=== PATIENT | female | born 1945 | race Caucasian/White ===

== ENCOUNTER 2020-09-23 12:35 | Emergency (ER) | payer MEDICARE, OTHER ==
[2020-09-23] MEDS ORDERED: NORCO 5/325 MG PO ONE (13:00)
[2020-09-23] MEDS ORDERED: NORCO 5/325 MG ONE (13:07)
--- NOTE | 2020-09-23 13:21 | ERPHSYRPT ---
- History of Present Illness Time Seen by Provider: 09/23/20 13:01 Source: patient Exam Limitations: no limitations Patient Subjective Stated Complaint: Rash Triage Nursing Assessment: Patient ambulated back to ED and transferred self to bed. Patient A+O X3. Patient's skin pink, warm and dry. Patient states 4 days ago she started having pain underneath right breast/chest area that was deep pressure then a rash appeared to the mid back area today. Patient has scattered red rash to mid back with blistering noted. Patient complains of constant aching pain 5/10. Patient has hx of COPD and uses PRN O2 but currently denies wanting to put o2 on. Physician History: 75 years old female presented in the ER with chief complaint of right-sided chest pain for the last 4 days, gradual onset underneath right breast and grad ually wrapping around to involve the right mid back. Sharp burning pain, aggravated with touching and putting clothes on, noticed some blisters couple of days ago in the back. No fever or chills reported. No difficulty breathing. No pain on the left side. Timing/Duration: day(s) (4), gradual onset, worse Quality: burning, itchy, painful Severity: moderate Possible Causes: no cause identified Associated Symptoms: blisters, change in skin texture, rash Allergies/Adverse Reactions: nickel Allergy (Verified 09/23/20 12:39) Penicillins Allergy (Verified 09/23/20 12:39) sulfamethoxazole [From Bactrim] Allergy (Verified 09/23/20 12:39) trimethoprim [From Bactrim] Allergy (Verified 09/23/20 12:39) Home Medications: Albuterol/Ipratropium 3ml Neb* [DUONEB 0.5-3 MG/3 ml Neb] 1 vial IH BID 09/23/20 [History] Aspirin 81 gm Chew [Baby Aspirin 81 mg Chew] 1 tab PO DAILY 09/23/20 [History] Atorvastatin Calcium [Lipitor 40Mg] 1 tab PO DAILY 09/23/20 [History] Escitalopram Oxalate 10 mg [Lexapro 10 MG] 1 tab PO DAILY 09/23/20 [History] Fluticasone/Umeclidin/Vilanter [Trelegy Ellipta 100-62.5-25] 1 puff IH DAILY 09/23/20 [History] Montelukast Sodium 10 mg [Singulair 10 MG] 1 tab PO DAILY 09/23/20 [History] Multivitamin 1 tab PO DAILY 09/23/20 [History] Hx Influenza Vaccination/Date Given: Yes Hx Pneumococcal Vaccination/Date Given: No Immunizations Up to Date: Yes Travel Risk - International Travel Have you traveled outside of the country in past 3 weeks: No - Coronavirus Screening Are you exhibiting any of the following symptoms?: No Close contact with a COVID-19 positive Pt in past 14-21 Days: No - Vaccine Status Have you recieved a Covid-19 vaccination: Yes Phone Representative: Moderna - Vaccination Dates Date of 2cond Vaccination (if applicable): 08/03/2020 - Review of Systems Constitutional: No Symptoms Eyes: No Symptoms Respiratory: No Symptoms Cardiac: No Symptoms Abdominal/Gastrointestinal: No Symptoms Genitourinary Symptoms: No Symptoms Musculoskeletal: No Symptoms Skin: Rash, Skin Lesions Neurological: No Symptoms Psychological: No Symptoms Endocrine: No Symptoms Hematologic/Lymphatic: No Symptoms - Past Medical History Pertinent Past Medical History: Yes Neurological History: No Pertinent History ENT History: No Pertinent History Cardiac History: High Cholesterol Respiratory History: COPD Endocrine Medical History: No Pertinent History GI Medical History: No Pertinent History History: No Pertinent History Psycho-Social History: Depression Female Reproductive Disorders: No Pertinent History - Past Surgical History Past Surgical History: Yes Neuro Surgical History: No Pertinent History Cardiac: No Pertinent History Respiratory: No Pertinent History Gastrointestinal: No Pertinent History Genitourinary: No Pertinent History Musculoskeletal: No Pertinent History Female Surgical History: No Pertinent History Other Surgical History: stent in right carotid - Social History Smoking Status: Former smoker Exposure to second hand smoke: Yes Drug Use: none Patient Lives Alone: Yes - Female History Hx Now: No - Nursing Vital Signs Nursing Vital Signs: Initial Vital Signs Temperature 98.0 F 09/23/20 12:40 Pulse Rate 91 H 09/23/20 12:40 Respiratory Rate 18 09/23/20 12:40 Blood Pressure 166/74 09/23/20 12:40 O2 Sat by Pulse Oximetry 95 09/23/20 12:40 Pain Scale Pain Intensity 4 - Physical Exam General Appearance: no apparent distress, alert Eye Exam: eyes nml inspection Ears, Nose, Throat Exam: normal ENT inspection Neck Exam: normal inspection, supple, full range of motion Respiratory Exam: normal breath sounds, chest tenderness, lungs clear Cardiovascular Exam: regular rate/rhythm, normal heart sounds Gastrointestinal/Abdomen Exam: soft, normal bowel sounds Back Exam: rash Extremity Exam: normal inspection Neurologic Exam: alert, oriented x 3 Skin Exam: normal color, rash (Small accumulated clusters of blisters on the right mid back not crossing midline. Few blisters and crusting underneath right breast. Tender to touch.) Lymphatic Exam: inguinal node tender (L) SpO2: 95 O2 Delivery: Room Air Ordered Tests: Medication Summary Discontinued Medications Generic Name Dose Route Start Last Admin Trade Name Freq PRN Reason Stop Dose Admin Hydrocodone Bitart/Acetaminophen 1 tab 09/23/20 13:00 09/23/20 13:12 [place] 5/325 Mg PO 09/23/20 13:01 1 tab STAT ONE Administration Hydrocodone Bitart/Acetaminophen Confirm 09/23/20 13:07 [place] 5/325 Mg Administered 09/23/20 13:08 Dose 1 tab .ROUTE .STK-MED ONE - Progress Progress: unchanged Progress Note: 09/23/20 21:51 Patient has shingles, still having blisters, started on Valtrex and pain medications. Recommended outpatient follow-up. Does not seem cardiac or pulmonary in etiology. Do not think needs any work-up and is stable for discharge. Discussed signs symptoms of worsening needing return to ER which he seems understanding. Counseled pt/family regarding: diagnosis, need for follow-up - Departure Departure Disposition: Home Clinical Impression: Shingles rash Qualifiers: Herpes zoster complications: unspecified herpes zoster complication Qualified Code(s): B02.8 - Zoster with other complications Condition: Stable Critical Care Time: No Referrals: Provider,Unknown [Primary Care Provider] - ROSELYN DOYLE MD [ACTIVE STAFF] - (2 days for re evaluation) Instructions: Shingles (DC) Additional Instructions: Pain medications only as needed. Continue with antiviral medications. Follow- up with primary care for reevaluation in 2 days. Return to ER for worsening pain/rash or if develop fever chills etc. Prescriptions: Hydrocodone/APAP 5/325 [[place] 5/325 mg] 1 each PO Q6H PRN PRN #7 tablet MDD 3 PRN Reason: Pain Valacyclovir HCl [Valtrex] 1,000 mg PO TID 7 Days #21 tablet
[2020-09-23 13:25] VITALS: BP 126/70; PULSE 86
[2020-09-23 21:52] VITALS: O2SAT 95
== END 2020-09-23 13:26 | disposition home or self-care (01) ==
LOC: ED 12:35
DX: B02.8 Zoster with other complications (principal)
CPT/HCPCS: 99283; A9270-GY

== ENCOUNTER 2020-12-31 10:49 | Emergency (ER) | payer MEDICARE, OTHER ==
[2020-12-31 11:22] LABS: Absolute Neutrophil Ct (ANC) 9.83 (1.4-6.9); BASOPHIL % 0.2 % (0.0-0.4); Basophil (Absolute #) 0.03 (0-0.4); Eosinophil % 2.8 % (0.00-5.0); Eosinophil (Absolute #) 0.36 (0-0.5); Hematocrit 45.3 % (35-47); Hemoglobin 14.7 gm/dl (12.0-16.0); Lymphocyte (Absolute #) 1.72 (1.0-4.6); Lymphocytes % 13.2 % (24.0-44.0); Mean Cell Volume 96.6 fl (78-100); Mean Corpuscular Hemoglobin 31.3 pg (26-32); Mean Corpuscular Hgb Concent. 32.5 g/dl (32-36); Mean Platelet Volume 10.9 fl (7.5-11.0); Monocyte (Absolute #) 1.13 (0.0-1.3); Monocytes % 8.6 % (0.0-12.0); Neutrophil % 75.2 % (36.0-66.0); Platelet Count 263 K/mm3 (150-450); Red Blood Count 4.69 M/mm3 (4.1-5.4); Red Cell Distribution Width 13.7 % (11.5-14.0); White Blood Count 13.1 K/mm3 (4.0-10.5)
[2020-12-31 11:32] LABS: Appearance CLOUDY (CLEAR); Bacteria MODERATE /HPF (NEGATIVE); Bilirubin NEGATIVE (NEGATIVE); Blood MODERATE Ery/ul (0-5); Glucose NEGATIVE (NEGATIVE); Ketones NEGATIVE (NEGATIVE); Leukocyte Esterase LARGE (NEGATIVE); Mucus SLIGHT /HPF (NEGATIVE); Nitrite POSITIVE (NEGATIVE); Protein,Urine Dip 100 (Negative); Specific Gravity 1.014 (1.005-1.025); Urobilinogen NEGATIVE mg/dL (0-1); WBC >100 /HPF (0-5)
[2020-12-31 11:33] LABS: ALBUMIN 4.5 g/dL (3.5-5.0); ALKALINE PHOSPHATASE 108 U/L (38-126); ANION GAP 16.2 MEQ/L (5-15); BLOOD UREA NITROGEN 13 mg/dL (7-17); CHLORIDE 99 mmol/L (98-107); Calcium 9.7 mg/dL (8.4-10.2); Carbon Dioxide 22 mmol/L (22-30); Creatinine 1 0.66 mg/dL (0.52-1.04); EST GLOMERULAR FILTRATION RATE > 60.0 ML/MIN; Glucose 134 mg/dL (74-106); LIPASE 61 U/L (23-300); Potassium 3.9 mmol/L (3.5-5.1); SGOT/AST 30 U/L (14-36); SGPT/ALT 22 U/L (0-35); SODIUM 134 mmol/L (137-145); Total Protein 7.6 g/dL (6.3-8.2)
[2020-12-31 11:34] LABS: Epithelial Cells RARE /HPF (FEW)
[2020-12-31] MEDS ORDERED: Sodium Chloride 0.9% 500 ML 500 ML IV ONE ×2 (12:01→12:31)
--- NOTE | 2020-12-31 12:39 | ERPHSYRPT ---
- History of Present Illness Time Seen by Provider: 12/31/20 10:59 Historian: patient Exam Limitations: no limitations Patient Subjective Stated Complaint: "UTI" frequency, urgency, burning reported x 2 days Triage Nursing Assessment: pt to ED c/o urinary frequency, urgency, and burning with urination for 2 days. reports decreased appetitte and one episode emesis r/t pain. reports 5/10 burning pain now but up to 8-9/10 at worst. Physician History: 75 years old female with history of peripheral vascular disease, hypertension, hyperlipidemia presented in the ER with chief complaint of urinary symptoms for the last couple of days. Patient reported increased urinary frequency with burning without any hesitancy or urgency and this morning started to have some bilateral flank discomfort with nausea and vomited x1. She reports minimal flank pain currently and does not want any pain medication. Denies any history of kidney stones. No fever or chills reported. Denies any sick contact. Timing/Duration: day(s) (2), intermittent, gradual onset, improved Activities at Onset: rest Quality: burning, sharpness Abdominal Pain Onset Location: suprapubic, flank Severity of Pain-Max: moderate Severity of Pain-Current: mild Modifying Factors: Worsens With: urinating Associated Symptoms: nausea, vomiting Previous symptoms: no prior history Allergies/Adverse Reactions: nickel Allergy (Verified 12/31/20 11:04) Penicillins Allergy (Verified 12/31/20 11:04) sulfamethoxazole [From Bactrim] Allergy (Verified 12/31/20 11:04) trimethoprim [From Bactrim] Allergy (Verified 12/31/20 11:04) Home Medications: Albuterol/Ipratropium 3ml Neb* [DUONEB 0.5-3 MG/3 ml Neb] 1 vial IH BID 09/23/20 [History] Aspirin 81 gm Chew [Baby Aspirin 81 mg Chew] 1 tab PO DAILY 09/23/20 [History] Atorvastatin Calcium [Lipitor 40Mg] 1 tab PO DAILY 09/23/20 [History] Escitalopram Oxalate 10 mg [Lexapro 10 MG] 1 tab PO DAILY 09/23/20 [History] Fluticasone/Umeclidin/Vilanter [Trelegy Ellipta 100-62.5-25] 1 puff IH DAILY 09/23/20 [History] Montelukast Sodium 10 mg [Singulair 10 MG] 1 tab PO DAILY 09/23/20 [History] Multivitamin 1 tab PO DAILY 09/23/20 [History] Hx Tetanus, Diphtheria Vaccination/Date Given: No Hx Influenza Vaccination/Date Given: Yes Hx Pneumococcal Vaccination/Date Given: No Immunizations Up to Date: No Travel Risk - International Travel Have you traveled outside of the country in past 3 weeks: No - Coronavirus Screening Are you exhibiting any of the following symptoms?: No Close contact with a COVID-19 positive Pt in past 14-21 Days: No - Vaccine Status Have you recieved a Covid-19 vaccination: Yes Cloud Software Engineer: Moderna - Vaccination Dates Date of 2cond Vaccination (if applicable): jul - Review of Systems Constitutional: No Symptoms Eyes: No Symptoms Ears, Nose, & Throat: No Symptoms Respiratory: No Symptoms Cardiac: No Symptoms Abdominal/Gastrointestinal: Abdominal Pain, Nausea, Vomiting Genitourinary Symptoms: Dysuria, Frequency, Flank Pain Musculoskeletal: No Symptoms Neurological: No Symptoms Psychological: No Symptoms Endocrine: No Symptoms Hematologic/Lymphatic: No Symptoms Immunological/Allergic: No Symptoms - Past Medical History Pertinent Past Medical History: Yes Neurological History: No Pertinent History ENT History: No Pertinent History Cardiac History: High Cholesterol Respiratory History: COPD Endocrine Medical History: No Pertinent History GI Medical History: No Pertinent History History: No Pertinent History Psycho-Social History: Depression Female Reproductive Disorders: No Pertinent History - Past Surgical History Past Surgical History: Yes Neuro Surgical History: No Pertinent History Cardiac: No Pertinent History Respiratory: No Pertinent History Gastrointestinal: No Pertinent History Genitourinary: No Pertinent History Musculoskeletal: No Pertinent History Female Surgical History: No Pertinent History Other Surgical History: stent in right carotid - Social History Smoking Status: Former smoker Exposure to second hand smoke: Yes Drug Use: none Patient Lives Alone: Yes - Female History Hx Now: No - Nursing Vital Signs Nursing Vital Signs: Initial Vital Signs Temperature 97.9 F 12/31/20 10:57 Pulse Rate 98 H 12/31/20 10:57 Respiratory Rate 18 12/31/20 10:57 Blood Pressure 138/89 12/31/20 10:57 O2 Sat by Pulse Oximetry 94 L 12/31/20 10:57 Pain Scale Pain Intensity 3 - Physical Exam General Appearance: no apparent distress, alert Eye Exam: PERRL/EOMI, eyes nml inspection Ears, Nose, Throat Exam: normal ENT inspection, pharynx normal Neck Exam: normal inspection, non-tender, supple, full range of motion Respiratory Exam: normal breath sounds, lungs clear Cardiovascular Exam: regular rate/rhythm, normal heart sounds Gastrointestinal/Abdomen Exam: soft, normal bowel sounds, No tenderness, No distention, No guarding Extremity Exam: normal inspection, normal range of motion, pelvis stable Neurologic Exam: alert, oriented x 3, cooperative Skin Exam: normal color SpO2 Interpretation: normal SpO2: 93 O2 Delivery: Room Air Ordered Tests: Active Orders 24 hr Category Date Time Status IV Insertion STAT Care 12/31/20 14:05 Completed ABDOMEN AND PELVIS W/0 CONTRAS [CT] Stat Exams 12/31/20 12:01 Taken CBC W DIFF Stat Lab 12/31/20 11:05 Completed CMP Stat Lab 12/31/20 11:05 Completed CULTURE,URINE Stat Lab 12/31/20 11:14 Received LIPASE Stat Lab 12/31/20 11:05 Completed UA W/RFX UR CULTURE Stat Lab 12/31/20 11:14 Completed Medication Summary Discontinued Medications Generic Name Dose Route Start Last Admin Trade Name Freq PRN Reason Stop Dose Admin Ciprofloxacin 500 mg 12/31/20 13:53 12/31/20 14:00 Cipro 500 Mg PO 12/31/20 13:54 500 mg ONCE STA Administration Ciprofloxacin Confirm 12/31/20 13:59 Cipro 500 Mg Administered 12/31/20 14:00 Dose 500 mg .ROUTE .STK-MED ONE Sodium Chloride 500 mls @ 500 mls/hr 12/31/20 12:01 12/31/20 13:36 Sodium Chloride 0.9% 500 Ml IV 12/31/20 13:00 Infused .Q1H ONE Infusion Sodium Chloride Confirm 12/31/20 12:31 Sodium Chloride 0.9% 500 Ml Administered 12/31/20 12:32 Dose 500 mls @ ud IV .STK-MED ONE Phenazopyridine HCl 200 mg 12/31/20 14:12 12/31/20 14:13 Pyridium 200 Mg PO 12/31/20 14:13 200 mg STAT ONE Administration Phenazopyridine HCl Confirm 12/31/20 14:12 Pyridium 200 Mg Administered 12/31/20 14:13 Dose 200 mg .ROUTE .STK-MED ONE Pyridoxine HCl 100 mg 12/31/20 14:05 12/31/20 14:11 Vitamin B-6 (Pyridoxine) 100 Mg PO 12/31/20 14:06 Not Given ONCE STA Lab/Rad Data: Laboratory Result Diagrams 12/31/20 11:05 12/31/20 11:05 Laboratory Results 12/31/20 12/31/20 12/31/20 Range/Units 11:14 11:05 11:05 WBC 13.1 H (4.0-10.5) K/mm3 RBC 4.69 (4.1-5.4) M/mm3 Hgb 14.7 (12.0-16.0) gm/dl Hct 45.3 (35-47) % MCV 96.6 (78-100) fl MCH 31.3 (26-32) pg MCHC 32.5 (32-36) g/dl RDW 13.7 (11.5-14.0) % Plt Count 263 (150-450) K/mm3 MPV 10.9 (7.5-11.0) fl Gran % 75.2 H (36.0-66.0) % Eos # (Auto) 0.36 (0-0.5) Absolute Lymphs (auto) 1.72 (1.0-4.6) Absolute Monos (auto) 1.13 (0.0-1.3) Lymphocytes % 13.2 L (24.0-44.0) % Monocytes % 8.6 (0.0-12.0) % Eosinophils % 2.8 (0.00-5.0) % Basophils % 0.2 (0.0-0.4) % Absolute Granulocytes 9.83 H (1.4-6.9) Basophils # 0.03 (0-0.4) Sodium 134 L (137-145) mmol/L Potassium 3.9 (3.5-5.1) mmol/L Chloride 99 (98-107) mmol/L Carbon Dioxide 22 (22-30) mmol/L Anion Gap 16.2 H (5-15) MEQ/L BUN 13 (7-17) mg/dL Creatinine 0.66 (0.52-1.04) mg/dL Estimated GFR > 60.0 ML/MIN Glucose 134 H (74-106) mg/dL Calcium 9.7 (8.4-10.2) mg/dL Total Bilirubin 1.20 (0.2-1.3) mg/dL AST 30 (14-36) U/L ALT 22 (0-35) U/L Alkaline Phosphatase 108 (38-126) U/L Serum Total Protein 7.6 (6.3-8.2) g/dL Albumin 4.5 (3.5-5.0) g/dL Lipase 61 (23-300) U/L Urine Color ASHLEY (YELLOW) Urine Appearance CLOUDY (CLEAR) Urine pH 6.0 (5-6) Ur Specific [place] 1.014 (1.005-1.025) Urine Protein 100 (Negative) Urine Ketones NEGATIVE (NEGATIVE) Urine Blood MODERATE (0-5) Gerardo/ul Urine Nitrite POSITIVE (NEGATIVE) Urine Bilirubin NEGATIVE (NEGATIVE) Urine Urobilinogen NEGATIVE (0-1) mg/dL Ur Leukocyte Esterase LARGE (NEGATIVE) Urine WBC (Auto) >100 (0-5) /HPF Urine RBC (Auto) 16-25 (0-2) /HPF U Epithel Cells (Auto) RARE (FEW) /HPF Urine Bacteria (Auto) MODERATE (NEGATIVE) /HPF Urine Mucus (Auto) SLIGHT (NEGATIVE) /HPF Urine Culture Reflexed YES (NO) Urine Glucose NEGATIVE (NEGATIVE) mg/dL - Progress Progress: improved Progress Note: 12/31/20 14:04 75 years old is evaluated for flank pain with urinary symptoms. She has a white count of 13. Urinalysis consistent with UTI. Obtain CT abdomen pelvis without contrast which showed minimal perinephric stranding nonsignificant/nonspecific. No fever. Does not seem septic. We will start her on Cipro. Outpatient follow-up. Discussed signs symptoms of worsening needing return to ER which she seemed understanding. Counseled pt/family regarding: lab results, diagnosis, need for follow-up, rad results - Departure Departure Disposition: Home Clinical Impression: Acute UTI Condition: Stable Critical Care Time: No Referrals: ROSELYN DOYLE MD [Primary Care Provider] - Follow Up with PCP/3 days Instructions: Urinary Tract Infection, Adult (DC) Additional Instructions: Take Tylenol as needed for pain. Follow-up with your primary care physician for reevaluation. Return to ER for worsening pain, increased frequency, burning, blood in the urine, fever chills etc. Prescriptions: Ciprofloxacin HCl [Cipro] 250 mg PO BID 7 Days #14 tablet Phenazopyridine HCl 200 mg [Pyridium 200 mg] 200 mg PO BID #6 tablet
[2020-12-31] MEDS ORDERED: Cipro 500 MG PO STA (13:53)
[2020-12-31] MEDS ORDERED: Cipro 500 MG ONE (13:59)
[2020-12-31] MEDS ORDERED: Vitamin B-6 (Pyridoxine) 100 MG PO STA (14:05)
[2020-12-31 14:07] VITALS: BP 130/82; PULSE 88; O2SAT 93
[2020-12-31] MEDS ORDERED: PYRIDIUM 200 MG ONE (14:12)
[2020-12-31] MEDS ORDERED: PYRIDIUM 200 MG PO ONE (14:12)
--- NOTE | 2020-12-31 18:38 | XRAY ---
Indication: UTI with pressure. Pyelonephritis. Kidney stones. Multiple contiguous axial images obtained through the abdomen and pelvis without contrast. Comparison: None. Lung bases demonstrates pulmonary emphysema and fibrosis/scarring. No infiltrate or effusion. Heart not enlarged. Small hiatal hernia. Noncontrasted stomach and bowel loops appear nonobstructed. Scattered sigmoid diverticulosis without diverticulitis. No free fluid/air. Nonobstructing punctate right renal calculus, 1.5 cm left mid renal exophytic cyst, and 1 cm uterine fundal calcified fibroid. Remaining liver, gallbladder, pancreas, spleen, adrenal glands, kidneys, ureters, bladder, and uterus unremarkable for noncontrast exam. Heavy scattered aortoiliac calcifications with 2.9 cm distal AAA. Osseous structures demonstrates osteopenia, minimal double curvature scoliosis, moderate L5-S1 degenerative changes, and mild degenerative changes of both hips. No ventral or inguinal hernias. Impression: 1. Small hiatal hernia, pulmonary emphysema, sigmoid diverticulosis, nonobstructing right renal micro-calculus, small left renal cyst, small uterine calcified fibroid, scattered arteriosclerotic disease with distal AAA, and chronic bony findings. 2. Remaining CT abdomen/pelvis without contrast exam is negative. Comment: Preliminary interpretation was made by C. No critical discrepancy.
== END 2020-12-31 14:17 | disposition home or self-care (01) ==
LOC: ED 10:49
DX: N39.0 Urinary tract infection, site not specified (principal); I73.9 Peripheral vascular disease, unspecified; I10 Essential (primary) hypertension; E78.5 Hyperlipidemia, unspecified; Z79.899 Other long term (current) drug therapy; J44.9 Chronic obstructive pulmonary disease, unspecified; Z87.891 Personal history of nicotine dependence
CPT/HCPCS: 36000; 36415; 74176; 80053; 81001; 83690; 85025; 87077; 87086; 87186; 99284; A9270-GY

== ENCOUNTER 2022-07-08 14:42 | Emergency (ER) | payer MEDICARE, OTHER ==
--- NOTE | 2022-07-08 15:00 | ERPHSYRPT ---
- History of Present Illness Time Seen by Provider: 07/08/22 14:59 Historian: patient, family Exam Limitations: no limitations Physician History: This is a 77-year-old thin white female patient of Dr. Mark Montelongo who presents with vomiting of liquids and solids anytime she eats or drinks something. She is lost 15 to 20 pounds in 1 month. It is not intentional. B puma Erving she had diarrhea/loose stools now she happens to have constipation and the above-stated symptoms. Patient has a family history of colon cancer. Her next colonoscopy is not until the spring. Her last colonoscopy was approximately 2-1/2 years ago. Patient does not have chest pain or shortness of breath. Patient does have a history of hyperlipidemia, COPD, depression, peripheral vascular disease with a carotid stent in place. Activities at Onset: none Quality: cramping Abdominal Pain Onset Location: generalized abdomen Severity of Pain-Max: mild (Mild) Severity of Pain-Current: mild Modifying Factors: Improves With: vomiting Associated Symptoms: nausea, vomiting, weakness, other (Loss), No chest pain, No diarrhea Previous symptoms: same symptoms as today, no recent treatment Allergies/Adverse Reactions: nickel Allergy (Verified 12/31/20 11:04) Penicillins Allergy (Verified 12/31/20 11:04) sulfamethoxazole [From Bactrim] Allergy (Verified 12/31/20 11:04) trimethoprim [From Bactrim] Allergy (Verified 12/31/20 11:04) Home Medications: Albuterol/Ipratropium 3ml Neb* [DUONEB 0.5-3 MG/3 ml Neb] 1 vial IH BID 09/23/20 [History] Aspirin 81 gm Chew [Baby Aspirin 81 mg Chew] 1 tab PO DAILY 09/23/20 [ History] Atorvastatin Calcium [Lipitor 40Mg] 1 tab PO HS 09/23/20 [History] Escitalopram Oxalate [Lexapro 10 MG] 1 tab PO DAILY 09/23/20 [History] Fluticasone/Umeclidin/Vilanter [Trelegy Ellipta 100-62.5-25] 1 puff IH DAILY 09/23/20 [History] Montelukast Sodium 10 mg [Singulair 10 MG] 1 tab PO DAILY 09/23/20 [History] Multivitamin 1 tab PO DAILY 09/23/20 [History] Alendronate Sodium 70 mg PO WEEKLY 07/08/22 [History] Calcium Carbonate/Vitamin D3 [Calcium 500-Vit D3 600 Tablet] 1 each PO DAILY 07/08/22 [History] Morgan-3 Fatty Acids/Fish Oil [Fish Oil 1,000 mg Capsule] 1 tablet PO UD 07/08/22 [History] Hx Tetanus, Diphtheria Vaccination/Date Given: No Hx Influenza Vaccination/Date Given: Yes Hx Pneumococcal Vaccination/Date Given: No Travel Risk - International Travel Have you traveled outside of the country in past 3 weeks: No - Coronavirus Screening Are you exhibiting any of the following symptoms?: Yes Symptoms: Vomiting/Diarrhea, Headaches/Body Aches/Fatigue - Vaccine Status Have you recieved a Covid-19 vaccination: Yes [employer]: Moderna - Vaccination Dates Date of 2cond Vaccination (if applicable): jul - Review of Systems Constitutional: Weakness Eyes: No Symptoms Ears, Nose, & Throat: No Symptoms Respiratory: No Symptoms Cardiac: No Symptoms Abdominal/Gastrointestinal: Nausea, Vomiting, Diarrhea, Constipation Genitourinary Symptoms: No Symptoms Musculoskeletal: No Symptoms Skin: No Symptoms Neurological: No Symptoms Psychological: No Symptoms Endocrine: Other (Weight loss) Hematologic/Lymphatic: No Symptoms Immunological/Allergic: No Symptoms All Other Systems: Reviewed and Negative - Past Medical History Pertinent Past Medical History: Yes Neurological History: No Pertinent History ENT History: No Pertinent History Cardiac History: High Cholesterol Respiratory History: COPD Endocrine Medical History: No Pertinent History GI Medical History: No Pertinent History History: No Pertinent History Psycho-Social History: Depression Female Reproductive Disorders: No Pertinent History - Past Surgical History Past Surgical History: Yes Neuro Surgical History: No Pertinent History Cardiac: No Pertinent History Respiratory: No Pertinent History Gastrointestinal: No Pertinent History Genitourinary: No Pertinent History Musculoskeletal: No Pertinent History Female Surgical History: No Pertinent History Other Surgical History: stent in right carotid - Social History Smoking Status: Former smoker Exposure to second hand smoke: Yes Drug Use: none Patient Lives Alone: Yes - Nursing Vital Signs Nursing Vital Signs: Initial Vital Signs Temperature 96.7 F 07/08/22 14:56 Pulse Rate 122 H 07/08/22 14:56 Respiratory Rate 20 07/08/22 14:56 Blood Pressure 128/84 07/08/22 14:56 O2 Sat by Pulse Oximetry 92 L 07/08/22 14:56 Pain Scale Pain Intensity 0 - Physical Exam General Appearance: no apparent distress, alert, anxiety, thin Eye Exam: PERRL/EOMI, eyes nml inspection Ears, Nose, Throat Exam: pharynx normal, dry mucous membranes Neck Exam: normal inspection, non-tender, supple, full range of motion Respiratory Exam: normal breath sounds, lungs clear, airway intact, No chest tenderness, No respiratory distress Cardiovascular Exam: tachycardia Gastrointestinal/Abdomen Exam: soft, normal bowel sounds, No tenderness Pelvic Exam: not done Rectal Exam: not done Back Exam: normal inspection, normal range of motion, No CVA tenderness, No vertebral tenderness Extremity Exam: normal inspection, normal range of motion, pelvis stable Neurologic Exam: alert, oriented x 3, cooperative, director of counseling II-XII nml as tested, normal mood/affect, nml cerebellar function, nml station & gait, sensation nml Skin Exam: normal color, warm, dry Lymphatic Exam: No adenopathy SpO2 Interpretation: borderline oxygenation O2 Delivery: Room Air - Course Nursing assessment & vital signs reviewed: Yes Ordered Tests: Active Orders 24 hr Category Date Time Status IV Insertion STAT Care 07/08/22 15:20 Active ABDOMEN AND PELVIS W/0 CONTRAS [CT] Stat Exams 07/08/22 15:20 Completed AMYLASE Stat Lab 07/08/22 15:30 Completed BLOOD CULTURE Stat Lab 07/08/22 15:34 Received CBC W DIFF Stat Lab 07/08/22 15:20 Completed CMP Stat Lab 07/08/22 15:30 Completed LIPASE Stat Lab 07/08/22 15:30 Completed Lactic Acid Stat Lab 07/08/22 15:20 Completed UA W/RFX UR CULTURE Stat Lab 07/08/22 15:23 Completed Medication Summary Generic Name Dose Route Start Last Admin Trade Name Freq PRN Reason Stop Dose Admin Sodium Chloride 1,000 mls @ 999 mls/hr 07/08/22 17:01 07/08/22 17:13 Sodium Chloride 0.9% 1000 Ml IV 07/08/22 18:01 999 mls/hr .Q1H1M STA Administration Discontinued Medications Generic Name Dose Route Start Last Admin Trade Name Freq PRN Reason Stop Dose Admin Sodium Chloride 1,000 mls @ 999 mls/hr 07/08/22 15:20 07/08/22 16:58 Sodium Chloride 0.9% 1000 Ml IV 07/08/22 16:20 Infused .Q1H1M STA Infusion Sodium Chloride Confirm 07/08/22 15:46 Sodium Chloride 0.9% 1000 Ml Administered 07/08/22 15:47 Dose 1,000 mls @ ud .ROUTE .STK-MED ONE Sodium Chloride Confirm 07/08/22 17:12 Sodium Chloride 0.9% 1000 Ml Administered 07/08/22 17:13 Dose 1,000 mls @ ud .ROUTE .STK-MED ONE Levofloxacin 500 mg 07/08/22 17:01 07/08/22 17:13 Levofloxacin 500 Mg Tablet PO 07/08/22 17:02 500 mg STAT ONE Administration Levofloxacin Confirm 07/08/22 17:12 Levofloxacin 500 Mg Tablet Administered 07/08/22 17:13 Dose 500 mg .ROUTE .STK-MED ONE Ondansetron HCl 4 mg 07/08/22 15:20 07/08/22 15:49 Ondansetron Hcl 4 Mg/2 Ml Vial IV 07/08/22 15:21 4 mg STAT ONE Administration Ondansetron HCl Confirm 07/08/22 15:46 Ondansetron Hcl 4 Mg/2 Ml Vial Administered 07/08/22 15:47 Dose 4 mg .ROUTE .STK-MED ONE Pantoprazole Sodium 40 mg 07/08/22 15:20 07/08/22 15:49 Pantoprazole 40 Mg Vial IV 07/08/22 15:21 40 mg STAT ONE Administration Pantoprazole Sodium Confirm 07/08/22 15:46 Pantoprazole 40 Mg Vial Administered 07/08/22 15:47 Dose 40 mg IV .STK-MED ONE Lab/Rad Data: Laboratory Result Diagrams 07/08/22 15:20 07/08/22 15:30 Laboratory Results 07/08/22 07/08/22 07/08/22 Range/Units 15:52 15:30 15:23 WBC (4.0-10.5) x10^3/uL RBC (4.1-5.4) x10^6/uL Hgb (12.0-16.0) g/dL Hct (35-47) % MCV (78-100) fL MCH (26-32) pg MCHC (32-36) g/dL RDW (11.5-14.0) % Plt Count (150-450) x10^3/uL MPV (7.5-11.0) fL Gran % (36.0-66.0) % Immature Gran % (Auto) (0.00-0.4) % Nucleat RBC Rel Count (0.00-0.1) % Eos # (Auto) (0-0.5) x10^3/uL Immature Gran # (Auto) (0.00-0.03) x10^3u/L Absolute Lymphs (auto) (1.0-4.6) x10^3/uL Absolute Monos (auto) (0.0-1.3) x10^3/uL Absolute Nucleated RBC (0.00-0.01) x10^3u/L Lymphocytes % (24.0-44.0) % Monocytes % (0.0-12.0) % Eosinophils % (0.00-5.0) % Basophils % (0.0-0.4) % Absolute Granulocytes (1.4-6.9) x10^3/uL Basophils # (0-0.4) x10^3/uL Sodium 131 L (137-145) mmol/L Potassium 4.4 (3.5-5.1) mmol/L Chloride 97 L (98-107) mmol/L Carbon Dioxide 20 L (22-30) mmol/L Anion Gap 18.0 H (5-15) MEQ/L BUN 20 H (7-17) mg/dL Creatinine 0.94 (0.52-1.04) mg/dL Estimated GFR > 60.0 ML/MIN Glucose 73 L (74-106) mg/dL Lactic Acid (0.4-2.0) Calcium 10.1 (8.4-10.2) mg/dL Total Bilirubin 3.80 H (0.2-1.3) mg/dL AST 690 H (14-36) U/L ALT 204 H (0-35) U/L Alkaline Phosphatase 1427 H (38-126) U/L Serum Total Protein 8.0 (6.3-8.2) g/dL Albumin 3.9 (3.5-5.0) g/dL Amylase 80 (30-110) U/L Lipase 146 (23-300) U/L Urine Color Dark Yellow A (Yellow) Urine Appearance Clear (Clear) Urine pH 5.0 (4.6-8.0) Ur Specific [place] 1.025 (1.005-1.030) Urine Protein 30 (Negative) Urine Glucose (UA) Negative (Negative) mg/dL Urine Ketones 40 A (Negative) Urine Blood Negative (Negative) Urine Nitrite Positive A (Negative) Urine Bilirubin Moderate A (Negative) Urine Urobilinogen 1.0 A (0.2) mg/dL Ur Leukocyte Esterase Trace A (Negative) U Hyaline Cast (Auto) 6-10 A (0-2) /LPF Urine Microscopic RBC 0-2 (0-5) /HPF Urine Microscopic WBC 0-2 (0-5) /HPF Ur Epithelial Cells Few (None Seen) /HPF Urine Bacteria None Seen (None Seen) /HPF Urine Culture Reflexed NO (NO) Influenza Type A Ag NEGATIVE (NEGATIVE) Influenza Type B Ag NEGATIVE (NEGATIVE) RSV (PCR) NEGATIVE (Negative) SARS-CoV-2 (PCR) NEGATIVE (NEGATIVE) 07/08/22 07/08/22 Range/Units 15:20 15:20 WBC 13.0 H (4.0-10.5) x10^3/uL RBC 4.71 (4.1-5.4) x10^6/uL Hgb 14.5 (12.0-16.0) g/dL Hct 43.9 (35-47) % MCV 93.2 (78-100) fL MCH 30.8 (26-32) pg MCHC 33.0 (32-36) g/dL RDW 13.8 (11.5-14.0) % Plt Count 371 (150-450) x10^3/uL MPV 11.0 (7.5-11.0) fL Gran % 86.4 H (36.0-66.0) % Immature Gran % (Auto) 0.5 H (0.00-0.4) % Nucleat RBC Rel Count 0.0 (0.00-0.1) % Eos # (Auto) 0.01 (0-0.5) x10^3/uL Immature Gran # (Auto) 0.06 H (0.00-0.03) x10^3u/L Absolute Lymphs (auto) 0.67 L (1.0-4.6) x10^3/uL Absolute Monos (auto) 0.99 (0.0-1.3) x10^3/uL Absolute Nucleated RBC 0.00 (0.00-0.01) x10^3u/L Lymphocytes % 5.1 L (24.0-44.0) % Monocytes % 7.6 (0.0-12.0) % Eosinophils % 0.1 (0.00-5.0) % Basophils % 0.3 (0.0-0.4) % Absolute Granulocytes 11.24 H (1.4-6.9) x10^3/uL Basophils # 0.04 (0-0.4) x10^3/uL Sodium (137-145) mmol/L Potassium (3.5-5.1) mmol/L Chloride (98-107) mmol/L Carbon Dioxide (22-30) mmol/L Anion Gap (5-15) MEQ/L BUN (7-17) mg/dL Creatinine (0.52-1.04) mg/dL Estimated GFR ML/MIN Glucose (74-106) mg/dL Lactic Acid 2.0 (0.4-2.0) Calcium (8.4-10.2) mg/dL Total Bilirubin (0.2-1.3) mg/dL AST (14-36) U/L ALT (0-35) U/L Alkaline Phosphatase (38-126) U/L Serum Total Protein (6.3-8.2) g/dL Albumin (3.5-5.0) g/dL Amylase (30-110) U/L Lipase (23-300) U/L Urine Color (Yellow) Urine Appearance (Clear) Urine pH (4.6-8.0) Ur Specific [place] (1.005-1.030) Urine Protein (Negative) Urine Glucose (UA) (Negative) mg/dL Urine Ketones (Negative) Urine Blood (Negative) Urine Nitrite (Negative) Urine Bilirubin (Negative) Urine Urobilinogen (0.2) mg/dL Ur Leukocyte Esterase (Negative) U Hyaline Cast (Auto) (0-2) /LPF Urine Microscopic RBC (0-5) /HPF Urine Microscopic WBC (0-5) /HPF Ur Epithelial Cells (None Seen) /HPF Urine Bacteria (None Seen) /HPF Urine Culture Reflexed (NO) Influenza Type A Ag (NEGATIVE) Influenza Type B Ag (NEGATIVE) RSV (PCR) (Negative) SARS-CoV-2 (PCR) (NEGATIVE) - Progress Progress: improved Progress Note: 07/08/22 17:17 CAT scan of the abdomen pelvis without contrast shows new hepatomegaly with left lobe hepatic lesions concerning for metastasis. There is evidence of pulmonary emphysema as well as sigmoid diverticulosis. Counseled pt/family regarding: lab results, diagnosis, need for follow-up, rad results - Departure Departure Disposition: Home Clinical Impression: Vomiting, Weight loss, Hepatic metastasis, Dehydration Condition: Stable Critical Care Time: No Referrals: IVAN MALONE [Primary Care Provider] - Follow up/PCP as directed Additional Instructions: Drink plenty of clear liquids. Follow your preoperative instructions for tomorrow's EGD. Take your antibiotics as prescribed. Follow-up with Dr. Mark Montelongo in her office tomorrow by phone after your EGD for further instructions and management. Prescriptions: Ondansetron ODT 4 MG [Zofran Odt 4 mg] 4 mg PO Q6H PRN PRN #10 tablet PRN Reason: Vomiting Ciprofloxacin [Cipro 500 MG] 500 mg PO BID #14 tablet
[2022-07-08] MEDS ORDERED: PROTONIX 40 MG IV IV ONE ×2 (15:20→15:46)
[2022-07-08] MEDS ORDERED: Sodium Chloride 0.9% 1000 ML 1,000 ML IV STA ×2 (15:20→17:01)
[2022-07-08] MEDS ORDERED: Zofran 4 MG/2 ML VIAL IV ONE (15:20)
[2022-07-08] MEDS ORDERED: Sodium Chloride 0.9% 1000 ML 1,000 ML ONE ×2 (15:46→17:12)
[2022-07-08] MEDS ORDERED: Zofran 4 MG/2 ML VIAL ONE (15:46)
[2022-07-08 15:52] LABS: Absolute Neutrophil Ct (ANC) 11.24 x10^3/uL (1.4-6.9); BASOPHIL % 0.3 % (0.0-0.4); Basophil (Absolute #) 0.04 x10^3/uL (0-0.4); Eosinophil % 0.1 % (0.00-5.0); Eosinophil (Absolute #) 0.01 x10^3/uL (0-0.5); Hematocrit 43.9 % (35-47); Hemoglobin 14.5 g/dL (12.0-16.0); IMMATURE GRAN # 0.06 x10^3u/L (0.00-0.03); IMMATURE GRAN % 0.5 % (0.00-0.4); Lymphocyte (Absolute #) 0.67 x10^3/uL (1.0-4.6); Lymphocytes % 5.1 % (24.0-44.0); Mean Cell Volume 93.2 fL (78-100); Mean Corpuscular Hemoglobin 30.8 pg (26-32); Monocyte (Absolute #) 0.99 x10^3/uL (0.0-1.3); Monocytes % 7.6 % (0.0-12.0); Neutrophil % 86.4 % (36.0-66.0); Platelet Count 371 x10^3/uL (150-450); Red Blood Count 4.71 x10^6/uL (4.1-5.4); Red Cell Distribution Width 13.8 % (11.5-14.0)
[2022-07-08 16:09] LABS: ALBUMIN 3.9 g/dL (3.5-5.0); ALKALINE PHOSPHATASE 1427 U/L (38-126); AMYLASE 80 U/L (30-110); BLOOD UREA NITROGEN 20 mg/dL (7-17); CHLORIDE 97 mmol/L (98-107); Calcium 10.1 mg/dL (8.4-10.2); Carbon Dioxide 20 mmol/L (22-30); Creatinine 1 0.94 mg/dL (0.52-1.04); EST GLOMERULAR FILTRATION RATE > 60.0 ML/MIN; Glucose 73 mg/dL (74-106); LIPASE 146 U/L (23-300); Potassium 4.4 mmol/L (3.5-5.1); SGOT/AST 690 U/L (14-36); SGPT/ALT 204 U/L (0-35); SODIUM 131 mmol/L (137-145)
[2022-07-08 16:23] LABS: Appearance Clear (Clear); Bacteria None Seen /HPF (None Seen); Bilirubin Moderate (Negative); Blood Negative (Negative); Epithelial Cells Few /HPF (None Seen); Glucose, Urine Negative (Negative); Ketones 40 (Negative); Leukocyte Esterase Trace (Negative); Nitrite Positive (Negative); Protein,Urine Dip 30 (Negative); RBC 0-2 /HPF (0-5); Specific Gravity 1.025 (1.005-1.030); WBC 0-2 /HPF (0-5)
[2022-07-08 16:25] LABS: ADD URINE CULTURE? NO (NO)
--- NOTE | 2022-07-08 16:27 | XRAY ---
Indication: Nausea, vomiting, and weakness 6 weeks. Multiple contiguous axial images obtained through the abdomen and pelvis without contrast. Comparison: December 31, 2020 Lung bases again demonstrates pulmonary emphysema with minimal bibasilar fibrosis/scarring. No infiltrate or effusion. Heart not enlarged. Noncontrasted stomach and bowel loops nonobstructed. Appendix not visualized. Again scattered sigmoid diverticulosis without diverticulitis. New 20 cm hepatomegaly with new multiple hypodense lesions, largest lateral segment left lower lobe measuring at least 2.8 cm worrisome for metastasis. No free fluid/air. Stable incidental small left mid renal exophytic cyst and small uterine calcified fibroid. Remaining gallbladder, pancreas, spleen, adrenal glands, kidneys, ureters, bladder, and uterus are unremarkable for noncontrast exam. Again heavy scattered aortoiliac calcifications with stable 2.9 cm distal AAA. Osseous structures intact again with osteopenia, minimal dextroscoliosis, and mild/moderate multilevel lumbar degenerative spondylosis again greatest at L4-S1 levels. No suspicious bony lesions. Impression: 1. New hepatomegaly with hepatic metastasis. 2. Again chronic findings including pulmonary emphysema, sigmoid diverticulosis, small left renal cyst, small uterine calcified fibroid, Dr. tasha duval with distal AAA, and chronic bony findings.
[2022-07-08 16:34] LABS: INFLUENZA A NEGATIVE (NEGATIVE); INFLUENZA B NEGATIVE (NEGATIVE); RESPIRATORY SYNCTIAL VIRUS NEGATIVE (Negative); SARS-CoV-2 Xpert Express NEGATIVE (NEGATIVE)
[2022-07-08 16:35] VITALS: O2SAT 92
[2022-07-08] MEDS ORDERED: Levofloxacin 500 MG Tablet PO ONE (17:01)
[2022-07-08] MEDS ORDERED: Levofloxacin 500 MG Tablet ONE (17:12)
[2022-07-08 17:25] VITALS: BP 147/76; PULSE 91
== END 2022-07-08 18:30 | disposition home or self-care (01) ==
LOC: ED 14:42
DX: C78.7 Secondary malignant neoplasm of liver and intrahepatic bile duct (principal); R11.2 Nausea with vomiting, unspecified; R63.4 Abnormal weight loss; E86.0 Dehydration; R10.84 Generalized abdominal pain; E78.5 Hyperlipidemia, unspecified; Z79.899 Other long term (current) drug therapy; Z20.828 Contact with and (suspected) exposure to other viral communicable diseases
CPT/HCPCS: 0241U; 36000; 36415; 74176; 80053; 81001; 82150; 83605; 83690; 85025; 87040; 96360; 96361; 96374; 96375; 99284; J2405; A9270-GY

== ENCOUNTER 2022-07-15 11:50 | Inpatient (IN) | payer MEDICARE, OTHER ==
[2022-07-15] MEDS ORDERED: Lactated Ringers 1,000 ML IV SCH (13:30)
[2022-07-15 14:09] LABS: Absolute Neutrophil Ct (ANC) 11.77 x10^3/uL (1.4-6.9); BASOPHIL % 0.4 % (0.0-0.4); Basophil (Absolute #) 0.06 x10^3/uL (0-0.4); Eosinophil % 0.1 % (0.00-5.0); Eosinophil (Absolute #) 0.01 x10^3/uL (0-0.5); Hematocrit 38.4 % (35-47); Hemoglobin 12.7 g/dL (12.0-16.0); IMMATURE GRAN # 0.12 x10^3u/L (0.00-0.03); IMMATURE GRAN % 0.9 % (0.00-0.4); Lymphocyte (Absolute #) 0.76 x10^3/uL (1.0-4.6); Lymphocytes % 5.5 % (24.0-44.0); Mean Cell Volume 91.9 fL (78-100); Mean Corpuscular Hemoglobin 30.4 pg (26-32); Mean Corpuscular Hgb Concent. 33.1 g/dL (32-36); Mean Platelet Volume 10.4 fL (7.5-11.0); Monocytes % 7.3 % (0.0-12.0); Neutrophil % 85.8 % (36.0-66.0); Platelet Count 288 x10^3/uL (150-450); Red Blood Count 4.18 x10^6/uL (4.1-5.4); Red Cell Distribution Width 15.3 % (11.5-14.0); White Blood Count 13.7 x10^3/uL (4.0-10.5)
[2022-07-15 14:11] LABS: INFLUENZA A NEGATIVE (NEGATIVE); INFLUENZA B NEGATIVE (NEGATIVE); RESPIRATORY SYNCTIAL VIRUS NEGATIVE (Negative)
[2022-07-15 14:23] LABS: ALBUMIN 3.3 g/dL (3.5-5.0); ALKALINE PHOSPHATASE 1336 U/L (38-126); ANION GAP 11.2 MEQ/L (5-15); BLOOD UREA NITROGEN 16 mg/dL (7-17); CHLORIDE 97 mmol/L (98-107); Calcium 9.4 mg/dL (8.4-10.2); Carbon Dioxide 27 mmol/L (22-30); EST GLOMERULAR FILTRATION RATE > 60.0 ML/MIN; Glucose 79 mg/dL (74-106); Potassium 4.5 mmol/L (3.5-5.1); SGPT/ALT 196 U/L (0-35); SODIUM 131 mmol/L (137-145); Total Protein 7.1 g/dL (6.3-8.2)
[2022-07-15 14:24] LABS: INR 1.23 (0.8-3.0); PROTIME 12.8 SECONDS (9.4-12.5); PTT 30.2 SECONDS (25.1-36.5)
[2022-07-15 14:31] LABS: SGOT/AST 702 U/L (14-36)
[2022-07-15] MEDS ORDERED: DUONEB 0.5-3 MG/3 ml Neb IH PRN (14:33)
[2022-07-15 14:40] LABS: SARS-CoV-2 Xpert Express POSITIVE (NEGATIVE)
[2022-07-15 16:30] LABS: Appearance Cloudy (Clear); Bacteria None Seen /HPF (None Seen); Bilirubin Moderate (Negative); Blood Negative (Negative); Epithelial Cells Rare /HPF (None Seen); Glucose, Urine Negative (Negative); Ketones 40 (Negative); Leukocyte Esterase Trace (Negative); Nitrite Negative (Negative); Protein,Urine Dip 100 (Negative); RBC 0-2 /HPF (0-5); WBC 0-2 /HPF (0-5)
[2022-07-15 16:47] LABS: ADD URINE CULTURE? ORDERED SEPARATELY (NO)
--- NOTE | 2022-07-15 17:24 | XRAY ---
Indication: Liver mass. Metastasis. Positive Covid 19. Multiple contiguous axial images obtained through the head prior to and following 80 cc Isovue 370 contrast. 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 No acute intracranial hemorrhage, abnormal extra-axial fluid collection, or mass effect. Postcontrast images again negative for abnormal enhancing intra-or extra-axial mass. Fourth ventricle is midline without hydrocephalus. Bony calvarium intact. Visualized paranasal sinuses and mastoid air cells are clear. Impression: 1. 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 2. No new/acute intracranial abnormalities abnormalities. 3. Continued negative contrast exam.
--- NOTE | 2022-07-15 17:30 | XRAY ---
Indication: Liver mass. Metastasis. Positive Covid 19. Multiple contiguous axial images obtained through the chest 80 cc Isovue 370 contrast. Comparison: None Lungs demonstrates diffuse centrilobular pulmonary emphysema and scattered fibrosis/scarring greatest right upper lobe. Medial left lower lobe demonstrates infrahilar soft tissue mass interposed between the left lower lobe bronchus and aorta measuring at least 2.1 x 3.7 x 3.1 cm. There is slight effacement of the left lower lobe bronchus. No other pulmonary mass/nodule, infiltrate, consolidation, or effusion. Heart not enlarged. Aorta is normal in course and caliber. A few tiny mediastinal calcified nodes. Bony thorax intact with osteopenia. No suspicious bony lesions. Limited upper abdomen demonstrates incompletely visualized multiple hepatic hypodense lesions favoring known metastasis. Impression: 1. Left infrahilar/medial left lower lobe soft tissue mass effacing left lower lobe bronchus worrisome for metastasis. 2. Incompletely visualized diffuse hepatic metastasis. 3. Chronic findings including pulmonary emphysema, pulmonary fibrosis/scarring, osteopenia, and old granulomatous disease.
--- NOTE | 2022-07-15 17:32 | XRAY ---
Indication: Liver mass. Metastasis. Comparison: None KUB nonacute and nonobstructed with paucity of bowel gas. 8 mm right and 6 mm left renal calculi. Osseous structures intact with osteopenia, mild/moderate lower lumbar degenerative changes, and mild dextroscoliosis centered at L3
[2022-07-15] MEDS ORDERED: Levofloxacin 500MG/100ML D5W 500 MG/100 ML BAG IV SCH (18:00)
[2022-07-15] MEDS: Sodium Chloride 0.9% 1000 ML 1,000 ML IV SCH (18:04)
[2022-07-15] MEDS: LEVOFLOXACIN 750MG/150ML D5W 750 MG/150 ML BAG IV SCH (18:05)
[2022-07-15] MEDS ORDERED: DUONEB 0.5-3 MG/3 ml Neb IH SCH (19:00)
[2022-07-15] MEDS ORDERED: Advair Hfa 115/21 Common canister IH SCH (19:00)
[2022-07-15] MEDS: FLUTICASONE-SALMETEROL 250-50 IH SCH (19:20)
[2022-07-15] MEDS: Zofran 4 MG/2 ML VIAL IV SCH ×3 (20:11→20:12)
[2022-07-15] MEDS: VENTOLIN COMMON CANISTER IH SCH (20:11)
[2022-07-15] MEDS: FLAGYL 500 MG IVPB 500 MG/100 ML BAG IV SCH (20:12)
[2022-07-16] MEDS ORDERED: Flonase NASAL NS PRN ×2 (02:02→07:10)
[2022-07-16] MEDS: Zofran 4 MG/2 ML VIAL IV SCH ×6 (02:17→21:45)
[2022-07-16] MEDS: FLAGYL 500 MG IVPB 500 MG/100 ML BAG IV SCH ×4 (02:17→19:54)
[2022-07-16 05:06] LABS: Absolute Neutrophil Ct (ANC) 11.59 x10^3/uL (1.4-6.9); BASOPHIL % 0.4 % (0.0-0.4); Basophil (Absolute #) 0.05 x10^3/uL (0-0.4); Eosinophil % 0.1 % (0.00-5.0); Eosinophil (Absolute #) 0.01 x10^3/uL (0-0.5); Hematocrit 35.4 % (35-47); Hemoglobin 11.7 g/dL (12.0-16.0); IMMATURE GRAN # 0.11 x10^3u/L (0.00-0.03); IMMATURE GRAN % 0.8 % (0.00-0.4); Lymphocyte (Absolute #) 0.72 x10^3/uL (1.0-4.6); Lymphocytes % 5.4 % (24.0-44.0); Mean Cell Volume 91.5 fL (78-100); Mean Corpuscular Hemoglobin 30.2 pg (26-32); Mean Corpuscular Hgb Concent. 33.1 g/dL (32-36); Mean Platelet Volume 10.5 fL (7.5-11.0); Monocyte (Absolute #) 0.93 x10^3/uL (0.0-1.3); Monocytes % 6.9 % (0.0-12.0); Neutrophil % 86.4 % (36.0-66.0); Platelet Count 263 x10^3/uL (150-450); Red Blood Count 3.87 x10^6/uL (4.1-5.4); Red Cell Distribution Width 15.4 % (11.5-14.0); White Blood Count 13.4 x10^3/uL (4.0-10.5)
[2022-07-16 05:36] LABS: ALBUMIN 2.8 g/dL (3.5-5.0); ALKALINE PHOSPHATASE 1031 U/L (38-126); ANION GAP 14.9 MEQ/L (5-15); BLOOD UREA NITROGEN 14 mg/dL (7-17); CHLORIDE 102 mmol/L (98-107); Calcium 8.4 mg/dL (8.4-10.2); Carbon Dioxide 19 mmol/L (22-30); EST GLOMERULAR FILTRATION RATE > 60.0 ML/MIN; Glucose 52 mg/dL (74-106); Potassium 4.1 mmol/L (3.5-5.1); SGOT/AST 707 U/L (14-36); SGPT/ALT 173 U/L (0-35); SODIUM 132 mmol/L (137-145); Total Protein 6.2 g/dL (6.3-8.2)
[2022-07-16] MEDS: Sodium Chloride 0.9% 1000 ML 1,000 ML IV SCH (05:50)
[2022-07-16] MEDS ORDERED: ZOFRAN ODT 4 MG PO PRN (07:11)
[2022-07-16] MEDS ORDERED: FISH OIL 1,000 MG CAPSULE PO SCH (07:15)
[2022-07-16] MEDS: FLUTICASONE-SALMETEROL 250-50 IH SCH ×2 (07:39→18:55)
[2022-07-16] MEDS: VENTOLIN COMMON CANISTER IH SCH ×2 (07:40→18:56)
[2022-07-16] MEDS: Dextrose 5%-NS IV Solution 1000 ML 1,000 ML IV SCH ×2 (07:56→17:18)
[2022-07-16] MEDS ORDERED: Compazine 10 MG/2 ML IV PRN (08:58)
[2022-07-16] MEDS ORDERED: VITAMIN D3 PO SCH (10:00)
[2022-07-16] MEDS ORDERED: [UNRECOGNIZED DRUG - OTHER] PO SCH (10:00)
[2022-07-16] MEDS ORDERED: CALCIUM CARBONATE PO SCH (10:00)
[2022-07-16] MEDS ORDERED: BABY ASPIRIN 81 MG CHEW PO SCH (10:00)
[2022-07-16] MEDS ORDERED: NON-FORMULARY ITEM (Multivitamin [Multivitamin] 1 EACH Tablet) PO SCH (10:00)
[2022-07-16] MEDS: ECOTRIN 81 MG PO SCH (11:56)
[2022-07-16] MEDS: PROTONIX 40 MG IV IV SCH (12:25)
[2022-07-16] MEDS: THERAGRAN MULTIVITAMIN PO SCH (12:31)
[2022-07-16] MEDS: Calcium 500MG W/Vit D Tablet PO SCH (12:31)
[2022-07-16] MEDS: Lexapro PO SCH (12:31)
[2022-07-16] MEDS ORDERED: Golytely Solution 4000 ML PO ONE (20:00)
[2022-07-17] MEDS: Dextrose 5%-NS IV Solution 1000 ML 1,000 ML IV SCH ×2 (01:20→17:37)
[2022-07-17] MEDS: Zofran 4 MG/2 ML VIAL IV SCH ×7 (01:21→23:22)
[2022-07-17] MEDS: FLAGYL 500 MG IVPB 500 MG/100 ML BAG IV SCH ×5 (01:21→23:21)
--- NOTE | 2022-07-17 06:28 | PCM.HP.ADD ---
Addendum to History & Physical - History & Physical Addendum Addendum to History & Physical: This certifies that the History & Physical in the electronic chart reflects the current health status of the patient. If there are changes in the H&P these changes/exceptions are listed as follows. (pt seen in office 07/15/22 and directly admitted).
--- NOTE | 2022-07-17 06:29 | PCM.NOTE ---
Date and Time: 07/17/22 06 (Late entry for 07/16/22 at 0830) Subjective Assessment: Pt still feeling nauseated, comes in waves. Mouth very dry. Objective Exam General Appearance: mild distress (nauseated; lying down initially, then sits up on side of bed.), alert Neurologic Exam: oriented x 3, cooperative Skin Exam: normal color, warm, dry, No rash Eye Exam: eyes nml inspection Ears, Nose, Throat Exam: dry mucous membranes Neck Exam: normal inspection Respiratory Exam: normal breath sounds, lungs clear, No crackles/rales, No rhonchi, No wheezing Cardiovascular Exam: regular rate/rhythm, normal heart sounds, No murmur Gastrointestinal/Abdomen Exam: soft, distention (mild), mass (large liver), No normal bowel sounds (hypoactive but present), No tenderness Extremity Exam: normal inspection, No pedal edema, No swelling Back Exam: No rash OBJECTIVE DATA Vital Signs: Vital Signs - 24 hr Temp Pulse Resp BP Pulse Ox 07/17/22 04:00 97.9 F 81 22 121/56 91 L 07/16/22 23:44 97.9 F 81 22 121/56 91 L 07/16/22 20:00 97.4 F 91 H 20 117/61 95 07/16/22 19:13 84 18 97 07/16/22 16:00 98.0 F 86 16 123/59 92 L 07/16/22 13:56 98 07/16/22 12:00 97.9 F 85 16 113/56 96 07/16/22 07:45 97.8 F 97 H 16 131/60 93 L 07/16/22 07:00 90 16 92 L Pain Assessment - Last Documented Pain Intensity 0 Intake and Output: Intake & Output 07/14/22 07/15/22 07/16/22 07/17/22 11:59 11:59 11:59 11:59 Intake Total 2544 460 Output Total 500 350 Balance 2044 110 Weight 60.3 kg Radiology Exams: Radiology Procedures Category Date Time Status CHEST WITH CONTRAST [CT] Routine Exams 07/15/22 16:57 Completed HEAD W/WO CONTRAST [CT] Routine Exams 07/15/22 16:58 Completed KUB Routine Exams 07/15/22 16:49 Completed Assessment/Plan (1) Vomiting Current Visit: No Status: Acute Code(s): R11.10 - VOMITING, UNSPECIFIED (2) Dehydration Current Visit: No Status: Acute Code(s): E86.0 - DEHYDRATION (3) Hepatic metastasis Current Visit: No Status: Acute Assessment & Plan: I spoke with GI about her elevated AST/ALT/AP and liver disease. The numbers are likely elevated due to the multiple lesions obstructing bile ducts. Pt needs EGD/colonoscopy as GI cancer is the most likely primary, so surgery has been consulted. Code(s): C78.7 - SECONDARY MALIG NEOPLASM OF LIVER AND INTRAHEPATIC BILE DUCT (4) Lung mass Current Visit: Yes Status: Acute Assessment & Plan: Also not likely the primary tumor. Found on CT this admission. Pt is aware. Code(s): R91.8 - OTHER NONSPECIFIC ABNORMAL FINDING OF LUNG FIELD
[2022-07-17 07:46] LABS: Absolute Neutrophil Ct (ANC) 10.12 x10^3/uL (1.4-6.9); BASOPHIL % 0.4 % (0.0-0.4); Basophil (Absolute #) 0.05 x10^3/uL (0-0.4); Eosinophil % 0.3 % (0.00-5.0); Eosinophil (Absolute #) 0.04 x10^3/uL (0-0.5); Hematocrit 33.1 % (35-47); IMMATURE GRAN % 0.8 % (0.00-0.4); Lymphocyte (Absolute #) 0.79 x10^3/uL (1.0-4.6); Lymphocytes % 6.6 % (24.0-44.0); Mean Cell Volume 90.9 fL (78-100); Mean Corpuscular Hemoglobin 30.2 pg (26-32); Mean Corpuscular Hgb Concent. 33.2 g/dL (32-36); Monocyte (Absolute #) 0.91 x10^3/uL (0.0-1.3); Monocytes % 7.6 % (0.0-12.0); Neutrophil % 84.3 % (36.0-66.0); Platelet Count 243 x10^3/uL (150-450); Red Blood Count 3.64 x10^6/uL (4.1-5.4); Red Cell Distribution Width 15.7 % (11.5-14.0)
[2022-07-17 08:18] LABS: ALBUMIN 2.6 g/dL (3.5-5.0); ALKALINE PHOSPHATASE 966 U/L (38-126); ANION GAP 8.6 MEQ/L (5-15); BLOOD UREA NITROGEN 9 mg/dL (7-17); CHLORIDE 108 mmol/L (98-107); Calcium 7.7 mg/dL (8.4-10.2); Carbon Dioxide 23 mmol/L (22-30); Creatinine 1 0.61 mg/dL (0.52-1.04); EST GLOMERULAR FILTRATION RATE > 60.0 ML/MIN; Glucose 118 mg/dL (74-106); Potassium 3.2 mmol/L (3.5-5.1); SGOT/AST 604 U/L (14-36); SGPT/ALT 142 U/L (0-35); SODIUM 137 mmol/L (137-145); Total Protein 5.6 g/dL (6.3-8.2)
--- NOTE | 2022-07-17 08:21 | CONS ---
CONSULT DATE: 07/16/2022 HISTORY: The patient had some sinus problems and cough a month or so ago. She has not been feeling well. She had some dehydration, inability to keep herself hydrated, not feeling well, nausea, some cramping and some vomiting. She had a CT scan done that showed liver metastasis. She has been having some bowel movements. She denies any current abdominal pain. She is COVID positive according to staff but she is not coughing like she was a month ago. PAST MEDICAL HISTORY: Hyperlipidemia, chronic obstructive pulmonary disease. She said she had a mammogram in the recent past. 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 She has history of depression. PAST SURGICAL HISTORY: Carotid stent in the past. Procedure on her bladder. section. Lumpectomy of breast four years ago. Tonsillectomy. She had a colonoscopy in [place]. She had some polyps removed years ago. HOME MEDICATIONS: Alendronate, aspirin, atorvastatin, calcium with vitamin D, DuoNeb, escitalopram, fish oil, montelukast, multivitamins, ondansetron, Trelegy Ellipta. ALLERGIES: PENICILLIN. BACTRIM. NICKEL. FAMILY HISTORY: Colon cancer, breast cancer, stroke. SOCIAL HISTORY: No current smoking. REVIEW OF SYSTEMS: Fourteen systems reviewed per admission assessment. No chest pain or palpitations other systems negative or noncontributory as above and per preadmission questionnaire. LAB DATA AND TESTS: CT scan hepatomegaly with hepatic metastasis, chronic changes of calcified aorta. She had a total bilirubin of 5. AST 707, ALT 173, alkaline phosphatase 1031, total bilirubin 5.2. I do not see where they fractionated that. INR 1.23. Ammonia less than 9. Liver function tests were higher and now they are down to 7 from yesterday. PHYSICAL EXAMINATION: GENERAL: A chronically ill female. No acute distress. HEENT: Sclera icteric. NECK: No JVD. CHEST: Equal excursion. CVS: Regular rate and rhythm. ABDOMEN: Soft. No peritoneal signs. EXTREMITIES: No edema. NEURO: Alert. PSYCH: Appropriate mood and affect. IMPRESSION: A 77-year-old with no recent upper endoscopy. She had colonoscopy in the past two years and had some polyps. She has got a family history of colon cancer. She has liver metastasis and significantly elevated alkaline phosphatase. She will benefit from upper and lower endoscopy for further evaluation as there is unclear etiology of her liver metastasis, rule out upper or lower GI source. Given her significantly elevated alkaline phosphatase question whether she could have hepatobiliary bile duct cancer or primary liver malignancy. Either way she will benefit from upper and lower endoscopy. Risk of bleeding or infection, risk of bowel injury or perforation, risk of missed or nondiagnosis or incomplete exam possibly requiring barium enema, other studies or procedures. General risk of anesthesia or sedation, possibility of inability to diagnose the etiology her source of metastasis. Films were reviewed by myself. Other differential could include pancreatic or other etiology. Either way, I feel she is a candidate for upper and lower endoscopy. [place] here [place] I will see if he has time and if not Dr. Cordova is here on . If both of them are tied up I might be available late tomorrow night.
[2022-07-17] MEDS: PROTONIX 40 MG IV IV SCH ×2 (10:18→22:51)
--- NOTE | 2022-07-17 12:15 | PCM.NOTE ---
Date and Time: 07/17/22 1210 Subjective Assessment: Not feeling well, very weak, more so than at home prior to admission. Has been doing colon prep; still having small amount light brown stool. She is to have EGD/colonoscopy with Dr. Arzola this afternoon. - Review of Systems Constitutional: Weakness, No Fever Abdominal/Gastrointestinal: Nausea Objective Exam General Appearance: mild distress (lying in bed, doesn't appear to feel well), thin Neurologic Exam: alert, oriented x 3, cooperative Skin Exam: normal color, warm, dry, No rash Eye Exam: eyes nml inspection Ears, Nose, Throat Exam: dry mucous membranes Neck Exam: normal inspection Respiratory Exam: diminished breath sounds, No crackles/rales, No rhonchi, No wheezing Cardiovascular Exam: regular rate/rhythm, normal heart sounds, No murmur Gastrointestinal/Abdomen Exam: soft, distention, mass (RUQ/hepatomegaly), No normal bowel sounds (BS present but diminished), No tenderness OBJECTIVE DATA Vital Signs: Vital Signs - 24 hr Temp Pulse Resp BP Pulse Ox 07/17/22 08:00 97.1 F 88 18 123/53 100 07/17/22 04:00 97.9 F 81 22 121/56 91 L 07/16/22 23:44 97.9 F 81 22 121/56 91 L 07/16/22 20:00 97.4 F 91 H 20 117/61 95 07/16/22 19:13 84 18 97 07/16/22 16:00 98.0 F 86 16 123/59 92 L 07/16/22 13:56 98 Pain Assessment - Last Documented Pain Intensity 0 Intake and Output: Intake & Output 07/15/22 07/16/22 07/17/22 07/18/22 11:59 11:59 11:59 11:59 Intake Total 2544 580 Output Total 500 350 Balance 2044 230 Weight 60.3 kg Lab Results: Lab Results-Last 24 Hours 07/17/22 07/17/22 07/17/22 Range/Units 07:40 07:40 08:45 WBC 12.0 H (4.0-10.5) x10^3/uL RBC 3.64 L (4.1-5.4) x10^6/uL Hgb 11.0 L (12.0-16.0) g/dL Hct 33.1 L (35-47) % MCV 90.9 (78-100) fL MCH 30.2 (26-32) pg MCHC 33.2 (32-36) g/dL RDW 15.7 H (11.5-14.0) % Plt Count 243 (150-450) x10^3/uL MPV 10.0 (7.5-11.0) fL Gran % 84.3 H (36.0-66.0) % Immature Gran % (Auto) 0.8 H (0.00-0.4) % Nucleat RBC Rel Count 0.0 (0.00-0.1) % Eos # (Auto) 0.04 (0-0.5) x10^3/uL Immature Gran # (Auto) 0.10 H (0.00-0.03) x10^3u/L Absolute Lymphs (auto) 0.79 L (1.0-4.6) x10^3/uL Absolute Monos (auto) 0.91 (0.0-1.3) x10^3/uL Absolute Nucleated RBC 0.00 (0.00-0.01) x10^3u/L Lymphocytes % 6.6 L (24.0-44.0) % Monocytes % 7.6 (0.0-12.0) % Eosinophils % 0.3 (0.00-5.0) % Basophils % 0.4 (0.0-0.4) % Absolute Granulocytes 10.12 H (1.4-6.9) x10^3/uL Basophils # 0.05 (0-0.4) x10^3/uL Sodium 137 (137-145) mmol/L Potassium 3.2 L D (3.5-5.1) mmol/L Chloride 108 H (98-107) mmol/L Carbon Dioxide 23 (22-30) mmol/L Anion Gap 8.6 (5-15) MEQ/L BUN 9 (7-17) mg/dL Creatinine 0.61 (0.52-1.04) mg/dL Estimated GFR > 60.0 ML/MIN Glucose 118 H (74-106) mg/dL POC Glucometer 152 H (74 to 106) mg/dL Calcium 7.7 L (8.4-10.2) mg/dL Total Bilirubin 4.00 H (0.2-1.3) mg/dL AST 604 H (14-36) U/L ALT 142 H (0-35) U/L Alkaline Phosphatase 966 H (38-126) U/L Serum Total Protein 5.6 L (6.3-8.2) g/dL Albumin 2.6 L (3.5-5.0) g/dL Radiology Exams: Radiology Procedures Category Date Time Status CHEST WITH CONTRAST [CT] Routine Exams 07/15/22 16:57 Completed HEAD W/WO CONTRAST [CT] Routine Exams 07/15/22 16:58 Completed KUB Routine Exams 07/15/22 16:49 Completed Multi-Disciplinary Progress Notes: Multi-Disciplinary Progress Notes 07/17/22 09:22 Case Management Note by Christine Perdomo NO CHANGE IN DC PLANS AT THIS TIME Initialized on 07/17/22 09:22 - END OF NOTE Assessment/Plan (1) Hepatic metastasis Current Visit: No Status: Acute Assessment & Plan: Most likely from colon; if colonoscopy is neg, pt will need liver bx. Code(s): C78.7 - SECONDARY MALIG NEOPLASM OF LIVER AND INTRAHEPATIC BILE DUCT (2) Dehydration Current Visit: No Status: Resolved Code(s): E86.0 - DEHYDRATION (3) Lung mass Current Visit: Yes Status: Acute Code(s): R91.8 - OTHER NONSPECIFIC ABNORMAL FINDING OF LUNG FIELD (4) Elevated liver enzymes Current Visit: Yes Status: Acute Assessment & Plan: Discussed with secondary connector armature yesterday, likely due to multiple metastases possibly constricting bile ducts throughout the liver. Code(s): R74.8 - ABNORMAL LEVELS OF OTHER SERUM ENZYMES (5) Hyponatremia Current Visit: Yes Status: Resolved Code(s): E87.1 - HYPO-OSMOLALITY AND HYPONATREMIA (6) Leukocytosis Current Visit: Yes Status: Acute Qualifiers: Leukocytosis type: unspecified Qualified Code(s): D72.829 - Elevated white blood cell count, unspecified Assessment & Plan: along with elevated procalcitonin, led me to rx antibiotics for possible infection of unknown etiology. Code(s): D72.829 - ELEVATED WHITE BLOOD CELL COUNT, UNSPECIFIED (7) Hypokalemia Current Visit: Yes Status: Acute Assessment & Plan: replete per protocol. Code(s): E87.6 - HYPOKALEMIA
[2022-07-17] MEDS: Transderm Scop 1.5MG Patch TOP SCH (13:06)
[2022-07-17] MEDS: POTASSIUM CHLORIDE 20 mEq IN WATER 100ML 100 ML IV SCH ×3 (13:06→17:29)
[2022-07-17 13:09] LABS: HBsAg Screen Negative (Negative); HCV Ab <0.1 s/co ratio (0.0-0.9); Hep A Ab, IgM Negative (Negative); Hep B Core Ab, IgM Negative (Negative)
[2022-07-17] MEDS: FLUTICASONE-SALMETEROL 250-50 IH SCH ×2 (13:50→18:50)
[2022-07-17] MEDS: VENTOLIN COMMON CANISTER IH SCH ×2 (13:50→18:50)
[2022-07-17] MEDS: VENTOLIN COMMON CANISTER IH PRN (14:15)
[2022-07-17] MEDS ORDERED: Versed 2 MG/2 ML Injection ONE (15:33)
[2022-07-17] MEDS ORDERED: DIPRIVAN 200 MG/20 ML IV ONE ×2 (15:34→16:45)
[2022-07-17] MEDS ORDERED: Xylocaine-Mpf 2% 5 Ml Vial ONE (15:34)
[2022-07-17] MEDS: FISH OIL 1,000 MG CAPSULE PO SCH (17:28)
[2022-07-17] MEDS: Calcium 500MG W/Vit D Tablet PO SCH (17:28)
[2022-07-17] MEDS: ECOTRIN 81 MG PO SCH (17:29)
[2022-07-17] MEDS: THERAGRAN MULTIVITAMIN PO SCH (17:29)
[2022-07-17] MEDS: Lexapro PO SCH (17:29)
[2022-07-17] MEDS: LEVOFLOXACIN 750MG/150ML D5W 750 MG/150 ML BAG IV SCH (18:28)
[2022-07-17 19:45] LABS: A-aADO2 87; ABG HEMOGLOBIN 13.6; ABG POTASSIUM 4.2 (3.5-5.1); ABG SITE RIGHT BRACHIAL; ARTERIAL BLOOD GAS BASE EXCESS -9.6 (-2.0-2.0); ARTERIAL BLOOD GAS FIO2 32 %; ARTERIAL BLOOD GAS PCO2 36 mmHg (35-45); ARTERIAL BLOOD GAS PO2 96 mmHg (75-100); ARTERIAL BLOOD GAS pH 7.27 (7.35-7.45); HCO3- 16.5 (22-28); HGB O2 SAT 96.2 g/dF (94-100); Methhemoglobin 0.8 % (1.4-1.5); paO2 pAO1 0.52
[2022-07-17] MEDS: Ativan 2 MG/1 ML VIAL IV PRN (20:35)
[2022-07-17] MEDS ORDERED: Zyprexa Zydis 5 MG PO ONE (20:54)
[2022-07-17] MEDS: Carafate SUSPENSION 1000 MG/10 ML PO SCH (23:21)
[2022-07-18] MEDS: POTASSIUM CHLORIDE 20 mEq IN WATER 100ML 100 ML IV SCH ×2 (00:08→02:10)
[2022-07-18] MEDS: Ativan 2 MG/1 ML VIAL IV PRN ×2 (00:45→22:15)
[2022-07-18] MEDS: Zofran 4 MG/2 ML VIAL IV SCH ×5 (05:02→20:38)
[2022-07-18] MEDS: FLAGYL 500 MG IVPB 500 MG/100 ML BAG IV SCH (05:02)
[2022-07-18 07:17] LABS: Absolute Neutrophil Ct (ANC) 15.12 x10^3/uL (1.4-6.9); BASOPHIL % 0.3 % (0.0-0.4); Basophil (Absolute #) 0.06 x10^3/uL (0-0.4); Eosinophil (Absolute #) 0 x10^3/uL (0-0.5); Hemoglobin 12.2 g/dL (12.0-16.0); IMMATURE GRAN # 0.13 x10^3u/L (0.00-0.03); IMMATURE GRAN % 0.8 % (0.00-0.4); Lymphocytes % 6.9 % (24.0-44.0); Mean Cell Volume 94.3 fL (78-100); Mean Corpuscular Hemoglobin 30.3 pg (26-32); Mean Corpuscular Hgb Concent. 32.1 g/dL (32-36); Mean Platelet Volume 11.3 fL (7.5-11.0); Monocyte (Absolute #) 0.79 x10^3/uL (0.0-1.3); Monocytes % 4.6 % (0.0-12.0); Neutrophil % 87.4 % (36.0-66.0); Platelet Count 245 x10^3/uL (150-450); Red Blood Count 4.03 x10^6/uL (4.1-5.4); Red Cell Distribution Width 17.1 % (11.5-14.0); White Blood Count 17.3 x10^3/uL (4.0-10.5)
[2022-07-18] MEDS: VENTOLIN COMMON CANISTER IH SCH (07:26)
[2022-07-18] MEDS: FLUTICASONE-SALMETEROL 250-50 IH SCH ×2 (07:28→18:10)
--- NOTE | 2022-07-18 08:12 | OP ---
SURGERY DATE/TIME: 07/17/2022 8302 PREOPERATIVE DIAGNOSIS: Abnormal CT scan with liver metastasis. POSTOPERATIVE DIAGNOSES: 1) CTE (computed tomography enterography) shows a small 1 cm ulceration in the second portion of the duodenum. Unable to absolutely see the ampula. This does not necessarily look malignant. It is a smooth ulceration. 2) On colonoscopy, she has acute angulation at 15 cm from the anus which is unable to be traversed with the colonoscope so EGD scope was used and able to get past this to the transverse colon past the splenic flexure and up to that point there is no gross lesions but there is poor preparation. PROCEDURES: 1) EGD. 2) Partial colonoscopy. SURGEON: Akhil Cordova M.D. ANESTHESIA: IV anesthesia. CONDITION: Patient condition stable. COMPLICATIONS: None. SPECIMEN: Duodenal biopsy. HISTORY: The patient is a 77 year-old female that presented to the hospital and was found to have extensive fatty liver metastatic disease and consultation was requested for EGD and colonoscopy to potentially find a primary source. The patient is prepped and she was only able to take a third of the prep and did take several enemas and at the request of the patient she elects to proceed with double endoscopy. DESCRIPTION OF PROCEDURE: The patient was brought to the endoscopy suite. Routinely positioned. Time out was performed. The IV anesthesia induced by anesthesia. The gastroscope was inserted through the mouth advanced to the third portion of the duodenum and that portion is normal. In the second portion of the duodenum, there is a 1 cm shallow, smooth ulceration without irregularity to suggest malignancy. The ampulla is not clearly identifiable so a biopsy taken with forceps of the duodenal ulcer. The stomach is grossly normal. There is probably a small hiatal hernia and the esophagus is normal. The stomach had been suctioned out. Scope withdrawn. Digital rectal exam is normal. The colonoscope is inserted to about 15 cm. At that point there is an acute angulation which is unable to be traversed with the colonoscope so the gastroscope is then inserted, advanced and with some manipulation is able to be advanced through that acute angulation. At 15 cm, it is able to be passed up to the transverse colon. The preparation is poor and is not able to be suctioned out well with the gastroscope. About half the lumen is visualized but there are no grossly bulky lesions identified from the transverse colon distally. That area of angulation does not show any evidence of cancer. It just appears to be a sharp angulation. Rectum is normal. The patient tolerated the procedure well all throughout the case and taken to recovery in stable condition. RECOMMENDATIONS: Will see what the pathology come back on the duodenal lesion. She does need to be on Protonix 40 mg twice a day as well as Carafate 1 gm four times a day for the duodenal ulcer but she will likely end up needing liver biopsy.
[2022-07-18] MEDS: Carafate SUSPENSION 1000 MG/10 ML PO SCH ×4 (08:58→22:17)
[2022-07-18] MEDS: PROTONIX 40 MG IV IV SCH ×2 (09:01→22:16)
[2022-07-18] MEDS: Calcium 500MG W/Vit D Tablet PO SCH (09:14)
[2022-07-18] MEDS: THERAGRAN MULTIVITAMIN PO SCH (09:14)
[2022-07-18] MEDS: DUONEB 0.5-3 MG/3 ml Neb IH SCH ×3 (09:15→18:08)
[2022-07-18] MEDS: solu-MEDROL 40 MG, Sterile H2O 10 ml 1 ML IV SCH ×6 (09:17→22:16)
[2022-07-18] MEDS: ECOTRIN 81 MG PO SCH (09:34)
[2022-07-18] MEDS: Lexapro PO SCH (09:34)
--- NOTE | 2022-07-18 09:48 | XRAY ---
Indication: Tachypnea and wheezing. Comparison: CT chest July 15, 2022 Portable chest now demonstrates mild hazy left base interstitial alveolar opacities with tiny effusion. Remaining heart and right lung unremarkable.
--- NOTE | 2022-07-18 09:55 | PCM.NOTE ---
Date and Time: 07/18/22 0950 Subjective Assessment: Pt got very anxious after the EGD/colonoscopy, was given ativan w/o relief then zyprexa and was able to sleep last night. Her RR was up to 60 at one time. Apparently EGD showed duodenal ulcer. Colon prep too poor to see anything apparently. This morning, she feels "terrible." Just had a bowel movement/diarrhea in the bed. Her breakfast is sitting out, she had taken 1 bite of eggs and is unable to swallow it so she spit it out into a napkin. She has O2 on. - Review of Systems Constitutional: No Fever Respiratory: Short Of Breath Objective Exam General Appearance: mild distress, thin Neurologic Exam: alert, cooperative Skin Exam: normal color, warm, dry, No rash Eye Exam: eyes nml inspection Ears, Nose, Throat Exam: dry mucous membranes (pieces of egg in the mouth) Respiratory Exam: diminished breath sounds (fair air exchange), prolonged expirations, wheezing (scattered, throughout), No crackles/rales, No rhonchi Cardiovascular Exam: regular rate/rhythm, normal heart sounds, No murmur Gastrointestinal/Abdomen Exam: soft, normal bowel sounds, tenderness (diffuse), No guarding, No rebound Extremity Exam: normal inspection, No pedal edema, No swelling Back Exam: normal inspection, No rash OBJECTIVE DATA Vital Signs: Vital Signs - 24 hr Temp Pulse Resp BP BP Pulse Ox 07/18/22 08:00 97.7 F 102 H 30 H 156/98 98 07/18/22 04:00 97.6 F 103 H 32 H 111/56 96 07/18/22 00:45 108 H 44 H 108/58 93 L 07/17/22 22:15 118 H 44 H 97 07/17/22 20:40 97.1 F 131 H 56 H 153/72 95 07/17/22 19:00 97.0 F 130 H 60 H 143/68 100 07/17/22 18:50 86 32 H 94 L 07/17/22 17:40 96.9 F 66 18 113/57 91 L 07/17/22 16:00 97.8 F 94 H 16 121/59 93 L 07/17/22 14:15 84 18 98 07/17/22 12:20 97.1 F 88 18 123/53 100 07/17/22 12:00 84 100 Pain Assessment - Last Documented Pain Intensity 0 Intake and Output: Intake & Output 07/15/22 07/16/22 07/17/22 07/18/22 11:59 11:59 11:59 11:59 Intake Total 2544 580 3074 Output Total 500 350 750 Balance 2045 230 3854 Weight 60.3 kg 60.3 kg Lab Results: Lab Results-Last 24 Hours 07/16/22 07/17/22 07/17/22 Range/Units 04:49 19:15 19:40 WBC (4.0-10.5) x10^3/uL RBC (4.1-5.4) x10^6/uL Hgb (12.0-16.0) g/dL Hct (35-47) % MCV (78-100) fL MCH (26-32) pg MCHC (32-36) g/dL RDW (11.5-14.0) % Plt Count (150-450) x10^3/uL MPV (7.5-11.0) fL Gran % (36.0-66.0) % Immature Gran % (Auto) (0.00-0.4) % Nucleat RBC Rel Count (0.00-0.1) % Eos # (Auto) (0-0.5) x10^3/uL Immature Gran # (Auto) (0.00-0.03) x10^3u/L Absolute Lymphs (auto) (1.0-4.6) x10^3/uL Absolute Monos (auto) (0.0-1.3) x10^3/uL Absolute Nucleated RBC (0.00-0.01) x10^3u/L Lymphocytes % (24.0-44.0) % Monocytes % (0.0-12.0) % Eosinophils % (0.00-5.0) % Basophils % (0.0-0.4) % Absolute Granulocytes (1.4-6.9) x10^3/uL Basophils # (0-0.4) x10^3/uL Puncture Site RIGHT BRACHIAL pCO2 36 (35-45) mmHg pO2 96 (75-100) mmHg Base Excess -9.6 L (-2.0-2.0) O2 Saturation 96.2 (94-100) g/dF ABG pH 7.27 L (7.35-7.45) ABG HCO3 16.5 L* (22-28) ABG O2 Sat (Measured) 98.0 (95-100) % Tomasz Test NOT APPLICABLE A-a Gradient 87 a/A Ratio 0.52 Hemoglobin 13.6 Carboxyhemoglobin 1.0 (0.0-6.9) % THgb Methemoglobin 0.8 L (1.4-1.5) % Temperature 37.0 C POC O2 Flow Rate 32 % Potassium 3.7 4.2 (3.5-5.1) mmol/L Lactic Acid (0.4-2.0) Magnesium (1.6-2.3) mg/dL Procalcitonin (0.030-0.080) ng/mL Hepatitis A IgM Ab Negative (Negative) Hep Bs Antigen Negative (Negative) Hep B Core IgM Ab Negative (Negative) Hep C Ab Signal/Cutoff <0.1 (0.0-0.9) s/co ratio Hepatitis C Interp Comment (.) 07/17/22 07/18/22 07/18/22 Range/Units 19:50 06:40 06:40 WBC 17.3 H (4.0-10.5) x10^3/uL RBC 4.03 L (4.1-5.4) x10^6/uL Hgb 12.2 (12.0-16.0) g/dL Hct 38.0 (35-47) % MCV 94.3 (78-100) fL MCH 30.3 (26-32) pg MCHC 32.1 (32-36) g/dL RDW 17.1 H (11.5-14.0) % Plt Count 245 (150-450) x10^3/uL MPV 11.3 H (7.5-11.0) fL Gran % 87.4 H (36.0-66.0) % Immature Gran % (Auto) 0.8 H (0.00-0.4) % Nucleat RBC Rel Count 0.0 (0.00-0.1) % Eos # (Auto) 0 (0-0.5) x10^3/uL Immature Gran # (Auto) 0.13 H (0.00-0.03) x10^3u/L Absolute Lymphs (auto) 1.20 (1.0-4.6) x10^3/uL Absolute Monos (auto) 0.79 (0.0-1.3) x10^3/uL Absolute Nucleated RBC 0.00 (0.00-0.01) x10^3u/L Lymphocytes % 6.9 L (24.0-44.0) % Monocytes % 4.6 (0.0-12.0) % Eosinophils % 0.0 (0.00-5.0) % Basophils % 0.3 (0.0-0.4) % Absolute Granulocytes 15.12 H (1.4-6.9) x10^3/uL Basophils # 0.06 (0-0.4) x10^3/uL Puncture Site pCO2 (35-45) mmHg pO2 (75-100) mmHg Base Excess (-2.0-2.0) O2 Saturation (94-100) g/dF ABG pH (7.35-7.45) ABG HCO3 (22-28) ABG O2 Sat (Measured) (95-100) % Tomasz Test A-a Gradient a/A Ratio Hemoglobin Carboxyhemoglobin (0.0-6.9) % THgb Methemoglobin (1.4-1.5) % Temperature C POC O2 Flow Rate % Potassium 4.1 (3.5-5.1) mmol/L Lactic Acid 5.1 H (0.4-2.0) Magnesium (1.6-2.3) mg/dL Procalcitonin (0.030-0.080) ng/mL Hepatitis A IgM Ab (Negative) Hep Bs Antigen (Negative) Hep B Core IgM Ab (Negative) Hep C Ab Signal/Cutoff (0.0-0.9) s/co ratio Hepatitis C Interp (.) 07/18/22 07/18/22 Range/Units 06:40 Unknown WBC (4.0-10.5) x10^3/uL RBC (4.1-5.4) x10^6/uL Hgb (12.0-16.0) g/dL Hct (35-47) % MCV (78-100) fL MCH (26-32) pg MCHC (32-36) g/dL RDW (11.5-14.0) % Plt Count (150-450) x10^3/uL MPV (7.5-11.0) fL Gran % (36.0-66.0) % Immature Gran % (Auto) (0.00-0.4) % Nucleat RBC Rel Count (0.00-0.1) % Eos # (Auto) (0-0.5) x10^3/uL Immature Gran # (Auto) (0.00-0.03) x10^3u/L Absolute Lymphs (auto) (1.0-4.6) x10^3/uL Absolute Monos (auto) (0.0-1.3) x10^3/uL Absolute Nucleated RBC (0.00-0.01) x10^3u/L Lymphocytes % (24.0-44.0) % Monocytes % (0.0-12.0) % Eosinophils % (0.00-5.0) % Basophils % (0.0-0.4) % Absolute Granulocytes (1.4-6.9) x10^3/uL Basophils # (0-0.4) x10^3/uL Puncture Site pCO2 (35-45) mmHg pO2 (75-100) mmHg Base Excess (-2.0-2.0) O2 Saturation (94-100) g/dF ABG pH (7.35-7.45) ABG HCO3 (22-28) ABG O2 Sat (Measured) (95-100) % Tomasz Test A-a Gradient a/A Ratio Hemoglobin Carboxyhemoglobin (0.0-6.9) % THgb Methemoglobin (1.4-1.5) % Temperature C POC O2 Flow Rate % Potassium (3.5-5.1) mmol/L Lactic Acid (0.4-2.0) Magnesium 1.8 (1.6-2.3) mg/dL Procalcitonin 6.600 H* (0.030-0.080) ng/mL Hepatitis A IgM Ab (Negative) Hep Bs Antigen (Negative) Hep B Core IgM Ab (Negative) Hep C Ab Signal/Cutoff (0.0-0.9) s/co ratio Hepatitis C Interp (.) Radiology Exams: Radiology Procedures Category Date Time Status ABDOMEN AND PELVIS W CONTRAST [CT] Stat Exams 07/18/22 09:42 Ordered CHEST 1 VIEW (PORTABLE) Stat Exams 07/18/22 08:46 Ordered Assessment/Plan (1) Metabolic acidemia Current Visit: Yes Status: Acute Assessment & Plan: unsure etiology. I spoke with her son Leonel and he said that she has been c/o abd pain for the past 3 months and he wondered if she may have some ischemic disease, which is certainly possible. Will repeat CT abd/pelvis, this time with contrast (last done 07/08/22) which may show any masses, and should reveal any ischemic disease. Repeat ABG. Code(s): E87.20 - ACIDOSIS, UNSPECIFIED (2) Duodenal ulcer Current Visit: Yes Status: Acute (3) Hepatic metastasis Current Visit: No Status: Acute Code(s): C78.7 - SECONDARY MALIG NEOPLASM OF LIVER AND INTRAHEPATIC BILE DUCT (4) Lung mass Current Visit: Yes Status: Acute Code(s): R91.8 - OTHER NONSPECIFIC ABNORMAL FINDING OF LUNG FIELD (5) Elevated liver enzymes Current Visit: Yes Status: Acute Code(s): R74.8 - ABNORMAL LEVELS OF OTHER SERUM ENZYMES (6) Hyponatremia Current Visit: Yes Status: Resolved Assessment & Plan: lab still pending this morning Code(s): E87.1 - HYPO-OSMOLALITY AND HYPONATREMIA (7) Leukocytosis Current Visit: Yes Status: Acute Qualifiers: Leukocytosis type: unspecified Qualified Code(s): D72.829 - Elevated white blood cell count, unspecified Assessment & Plan: increased. Her procalcitonin is also elevated - changing levaquin and flagyl to meropenem and vancomycin, after consultation with pharmacy. Code(s): D72.829 - ELEVATED WHITE BLOOD CELL COUNT, UNSPECIFIED (8) Hypokalemia Current Visit: Yes Status: Acute Code(s): E87.6 - HYPOKALEMIA (9) Wheezing Current Visit: Yes Status: Acute Assessment & Plan: new today. Could be d/t tachypnea which is likely caused by the metabolic acidosis. Code(s): R06.2 - WHEEZING
[2022-07-18] MEDS ORDERED: PHARMACY DOSING REQUEST MC ONE (10:00)
[2022-07-18] MEDS ORDERED: Lasix 40 MG/4 ML IV ONE (10:34)
[2022-07-18 10:35] LABS: TROPONIN 0.803 ng/mL (0.000-0.034)
[2022-07-18] MEDS: Merrem 1 GM in Sodium Chloride 100ML MINI-BAG PLUS 100 ML IV SCH ×2 (10:39→22:09)
[2022-07-18 11:07] LABS: A-aADO2 97; ABG HEMOGLOBIN 12.5; ABG POTASSIUM 3.8 (3.5-5.1); ABG SITE LEFT RADIAL; ALLEN TEST OK? YES; ARTERIAL BLD GAS O2 SATURATION 99.3 % (95-100); ARTERIAL BLOOD GAS FIO2 32 %; ARTERIAL BLOOD GAS PCO2 30 mmHg (35-45); ARTERIAL BLOOD GAS PO2 94 mmHg (75-100); ARTERIAL BLOOD GAS pH 7.42 (7.35-7.45); CARBOXYHEMOGLOBIN 1.3 % THgb (0.0-6.9); HCO3- 19.5 (22-28); HGB O2 SAT 97.1 g/dF (94-100); Methhemoglobin 0.9 % (1.4-1.5); paO2 pAO1 0.49
[2022-07-18] MEDS: VANCOMYCIN 1 GRAM/200 ML BAG 1 GM/200 ML PIGGYBACK IV SCH (12:50)
--- NOTE | 2022-07-18 13:44 | XRAY ---
Indication: Abdomen pain. Positive Covid 19. Multiple contiguous axial images obtained through the abdomen and pelvis using 80 cc Isovue 370 contrast. Comparison: July 08, 2022 Lung bases are degraded by respiration artifact. Grossly stable pulmonary emphysema with new small left effusion. Heart not enlarged. Noncontrasted stomach and bowel loops nonobstructed. Again appendix not visualized. Stable sigmoid diverticulosis without diverticulitis, 20 cm hepatomegaly with diffuse hepatic metastasis, small left renal exophytic cyst, and small uterine calcified fibroid. Pelvis demonstrates new tiny free fluid. No walled off fluid collection or free air. Normally distended urinary bladder demonstrates new Merlos balloon catheter in situ. Remaining gallbladder, pancreas, spleen, adrenal glands, kidneys, and ureters are unremarkable. Again heavy scattered aortoiliac hesitations with 2.9 cm distal AAA. No pathologic retroperitoneal lymphadenopathy. Impression: 1. New small left pleural effusion and tiny nonspecific pelvic free fluid. 2. Stable hepatomegaly with diffuse hepatic metastasis, pulmonary emphysema, sigmoid diverticulosis, left renal cyst, uterine calcified fibroid, and arteriosclerotic disease with distal AAA.
[2022-07-18 14:14] LABS: A-aADO2 81; ABG HEMOGLOBIN 13.9; ABG POTASSIUM 3.8 (3.5-5.1); ABG SITE RIGHT RADIAL; ALLEN TEST OK? YES; ARTERIAL BLD GAS O2 SATURATION 99.4 % (95-100); ARTERIAL BLOOD GAS BASE EXCESS -2.9 (-2.0-2.0); ARTERIAL BLOOD GAS FIO2 32 %; ARTERIAL BLOOD GAS PCO2 33 mmHg (35-45); ARTERIAL BLOOD GAS PO2 106 mmHg (75-100); ARTERIAL BLOOD GAS pH 7.41 (7.35-7.45); CARBOXYHEMOGLOBIN 1.2 % THgb (0.0-6.9); HCO3- 20.9 (22-28); HGB O2 SAT 97.4 g/dF (94-100); Methhemoglobin 0.9 % (1.4-1.5); paO2 pAO1 0.57
[2022-07-18 14:41] LABS: ALBUMIN 2.7 g/dL (3.5-5.0); ALKALINE PHOSPHATASE 908 U/L (38-126); ANION GAP 10.5 MEQ/L (5-15); BLOOD UREA NITROGEN 8 mg/dL (7-17); CHLORIDE 110 mmol/L (98-107); Calcium 7.8 mg/dL (8.4-10.2); Carbon Dioxide 19 mmol/L (22-30); Creatinine 1 0.66 mg/dL (0.52-1.04); EST GLOMERULAR FILTRATION RATE > 60.0 ML/MIN; Glucose 112 mg/dL (74-106); SGOT/AST 526 U/L (14-36); SGPT/ALT 129 U/L (0-35); SODIUM 136 mmol/L (137-145)
[2022-07-18 14:43] LABS: Potassium 4.2 mmol/L (3.5-5.1)
[2022-07-18] MEDS: Acidophilus TABLET PO SCH ×2 (15:58→22:19)
[2022-07-19] MEDS: Zofran 4 MG/2 ML VIAL IV SCH ×6 (01:05→23:28)
[2022-07-19] MEDS: DUONEB 0.5-3 MG/3 ml Neb IH SCH ×4 (01:38→19:48)
[2022-07-19] MEDS: VANCOMYCIN 1 GRAM/200 ML BAG 1 GM/200 ML PIGGYBACK IV SCH (05:31)
[2022-07-19 05:50] LABS: BASOPHIL % 0.2 % (0.0-0.4); Basophil (Absolute #) 0.04 x10^3/uL (0-0.4); Eosinophil (Absolute #) 0 x10^3/uL (0-0.5); Hematocrit 34.3 % (35-47); Hemoglobin 11.5 g/dL (12.0-16.0); IMMATURE GRAN # 0.09 x10^3u/L (0.00-0.03); IMMATURE GRAN % 0.6 % (0.00-0.4); Lymphocyte (Absolute #) 0.79 x10^3/uL (1.0-4.6); Lymphocytes % 4.9 % (24.0-44.0); Mean Cell Volume 90.3 fL (78-100); Mean Corpuscular Hemoglobin 30.3 pg (26-32); Mean Corpuscular Hgb Concent. 33.5 g/dL (32-36); Mean Platelet Volume 11.3 fL (7.5-11.0); Monocyte (Absolute #) 0.45 x10^3/uL (0.0-1.3); Monocytes % 2.8 % (0.0-12.0); Neutrophil % 91.5 % (36.0-66.0); Platelet Count 288 x10^3/uL (150-450); Red Cell Distribution Width 17.1 % (11.5-14.0); White Blood Count 16.1 x10^3/uL (4.0-10.5)
[2022-07-19 06:06] LABS: INR 1.56 (0.8-3.0); PROTIME 15.9 SECONDS (9.4-12.5); PTT 33.9 SECONDS (25.1-36.5)
[2022-07-19 06:11] LABS: ALBUMIN 2.6 g/dL (3.5-5.0); ALKALINE PHOSPHATASE 936 U/L (38-126); ANION GAP 10.1 MEQ/L (5-15); BLOOD UREA NITROGEN 11 mg/dL (7-17); CHLORIDE 107 mmol/L (98-107); Calcium 7.5 mg/dL (8.4-10.2); Carbon Dioxide 24 mmol/L (22-30); Creatinine 1 0.75 mg/dL (0.52-1.04); EST GLOMERULAR FILTRATION RATE > 60.0 ML/MIN; Glucose 129 mg/dL (74-106); Potassium 3.6 mmol/L (3.5-5.1); SGOT/AST 454 U/L (14-36); SGPT/ALT 117 U/L (0-35); SODIUM 137 mmol/L (137-145); Total Protein 5.8 g/dL (6.3-8.2)
[2022-07-19] MEDS: solu-MEDROL 40 MG, Sterile H2O 10 ml 1 ML IV SCH ×6 (06:11→23:29)
[2022-07-19] MEDS: FLUTICASONE-SALMETEROL 250-50 IH SCH ×2 (06:12→19:48)
--- NOTE | 2022-07-19 07:44 | ECHO ---
DATE OF PROCEDURE: 07/18/2022 PROCEDURE: Complete two-dimensional echocardiogram with color Doppler and Spectral analysis. INDICATION: Elevated troponins. DESCRIPTION OF FINDINGS: The left ventricle is normal size with normal left ventricular wall thickness. Left ventricular systolic function is mildly reduced with ejection fraction of 40 to 45%. There is no obvious regional wall motion abnormalities. The right ventricle is mildly dilated with normal systolic function. The left atrium is normal size. The right atrium is normal size. The inferior vena cava is small and fully collapses with inspiration suggestive of intravascular volume depletion. The aortic valve is not well visualized. There is no aortic stenosis. No aortic regurgitation. The mitral valve has mild to moderate mitral annular calcification. There is trace mitral regurgitation. The tricuspid valve leaflets are thin and pliable. There is trace tricuspid regurgitation. Unable to estimate right ventricular systolic pressure. The pulmonic valve is not well visualized. The aortic root is normal diameter. There is no pericardial effusion. IMPRESSION: 1) NORMAL LEFT VENTRICULAR SIZE AND WALL THICKNESS. 2) MILDLY REDUCED LEFT VENTRICULAR SYSTOLIC FUNCTION WITH EJECTION FRACTION OF 40 TO 45%. NO OBVIOUS WALL MOTION ABNORMALITIES. NO OBVIOUS REGIONAL WALL MOTION ABNORMALITIES. 3) RIGHT VENTRICLE IS MILDLY DILATED WITH NORMAL SYSTOLIC FUNCTION. 4) TRACE MITRAL REGURGITATION. 5) TRACE TRICUSPID REGURGITATION. UNABLE TO ESTIMATE RIGHT VENTRICULAR SYSTOLIC PRESSURE. 6) NO PERICARDIAL EFFUSION.
--- NOTE | 2022-07-19 08:38 | XRAY ---
Indication: Hypoxemia and tachypnea. Positive Covid 19. Liver metastasis. Comparison: One day earlier. Portable chest unchanged again demonstrating right upper lobe subsegmental atelectasis/scarring and CT proven small left effusion/pulmonary emphysema. Heart not enlarged. No new cardiopulmonary abnormalities.
[2022-07-19] MEDS: Carafate SUSPENSION 1000 MG/10 ML PO SCH ×4 (08:40→23:30)
[2022-07-19] MEDS: PROTONIX 40 MG IV IV SCH ×2 (08:46→23:29)
[2022-07-19] MEDS: Merrem 1 GM in Sodium Chloride 100ML MINI-BAG PLUS 100 ML IV SCH ×2 (08:46→23:28)
[2022-07-19] MEDS: Acidophilus TABLET PO SCH ×3 (09:04→23:28)
[2022-07-19] MEDS: Calcium 500MG W/Vit D Tablet PO SCH (09:04)
[2022-07-19] MEDS: Lexapro PO SCH (09:04)
[2022-07-19] MEDS: THERAGRAN MULTIVITAMIN PO SCH (09:05)
[2022-07-19] MEDS: ECOTRIN 81 MG PO SCH (09:09)
[2022-07-19] MEDS: VENTOLIN COMMON CANISTER IH PRN (09:20)
[2022-07-19 09:38] LABS: ALBUMIN 2.7 g/dL (3.5-5.0); ALKALINE PHOSPHATASE 938 U/L (38-126); ANION GAP 11.8 MEQ/L (5-15); BLOOD UREA NITROGEN 11 mg/dL (7-17); CHLORIDE 109 mmol/L (98-107); Calcium 7.5 mg/dL (8.4-10.2); Carbon Dioxide 22 mmol/L (22-30); Creatinine 1 0.75 mg/dL (0.52-1.04); EST GLOMERULAR FILTRATION RATE > 60.0 ML/MIN; Glucose 124 mg/dL (74-106); Potassium 3.7 mmol/L (3.5-5.1); SGOT/AST 469 U/L (14-36); SGPT/ALT 118 U/L (0-35); SODIUM 139 mmol/L (137-145); Total Protein 5.8 g/dL (6.3-8.2)
[2022-07-19] MEDS: FISH OIL 1,000 MG CAPSULE PO SCH (12:19)
--- NOTE | 2022-07-19 12:31 | PCM.NOTE ---
Date and Time: 07/19/22 1226 Subjective Assessment: This morning, she told the nurse she was "not bad" and complained of being hungry. When I see her, she is sleeping and I had to speak loudly and touch her to wake her up. Then she was AAOx3. Told me she felt "the same" and was complaining of dry mouth. Her urine appears somewhat bloody this morning. - Review of Systems Constitutional: No Fever Abdominal/Gastrointestinal: No Vomiting Objective Exam General Appearance: no apparent distress, alert, other (appears more comfortable than she did yesterday.) Neurologic Exam: oriented x 3, cooperative Skin Exam: normal color, warm, dry, No rash Eye Exam: eyes nml inspection Ears, Nose, Throat Exam: moist mucous membranes Neck Exam: normal inspection Respiratory Exam: diminished breath sounds, wheezing (faint, scattered), No crackles/rales, No rhonchi Cardiovascular Exam: normal heart sounds, tachycardia, No murmur Gastrointestinal/Abdomen Exam: soft, normal bowel sounds, tenderness (generalized, mild), distention (mild), mass (large liver), No guarding, No rebound Extremity Exam: normal inspection, No pedal edema, No swelling Back Exam: normal inspection, No rash OBJECTIVE DATA Vital Signs: Vital Signs - 24 hr Temp Pulse Resp BP BP Pulse Ox 07/19/22 09:34 97 H 30 H 100 07/19/22 08:00 97.8 F 95 H 25 H 115/58 100 07/19/22 06:12 97 H 34 H 100 07/19/22 04:00 97.8 F 91 H 24 104/67 98 07/19/22 00:00 98.0 F 91 H 32 H 97/54 95 07/18/22 22:15 74 22 105/64 07/18/22 20:00 99.1 F 91 H 36 H 105/63 96 07/18/22 18:32 97 H 34 H 95 07/18/22 17:00 97.4 F 87 25 H 97/56 92 L 07/18/22 13:50 35 H 07/18/22 12:45 97.8 F 94 H 32 H 101/56 100 Pain Assessment - Last Documented Pain Intensity 0 Intake and Output: Intake & Output 07/17/22 07/18/22 07/19/22 07/20/22 11:59 11:59 11:59 11:59 Intake Total 422 7115 681 Output Total 150 142 9700 Balance 230 1054 -111 Weight 60.3 kg 60.3 kg Lab Results: Lab Results-Last 24 Hours 07/18/22 07/18/22 07/19/22 Range/Units 06:40 14:08 04:25 WBC (4.0-10.5) x10^3/uL RBC (4.1-5.4) x10^6/uL Hgb (12.0-16.0) g/dL Hct (35-47) % MCV (78-100) fL MCH (26-32) pg MCHC (32-36) g/dL RDW (11.5-14.0) % Plt Count (150-450) x10^3/uL MPV (7.5-11.0) fL Gran % (36.0-66.0) % Immature Gran % (Auto) (0.00-0.4) % Nucleat RBC Rel Count (0.00-0.1) % Eos # (Auto) (0-0.5) x10^3/uL Immature Gran # (Auto) (0.00-0.03) x10^3u/L Absolute Lymphs (auto) (1.0-4.6) x10^3/uL Absolute Monos (auto) (0.0-1.3) x10^3/uL Absolute Nucleated RBC (0.00-0.01) x10^3u/L Lymphocytes % (24.0-44.0) % Monocytes % (0.0-12.0) % Eosinophils % (0.00-5.0) % Basophils % (0.0-0.4) % Absolute Granulocytes (1.4-6.9) x10^3/uL Basophils # (0-0.4) x10^3/uL PT (9.4-12.5) SECONDS INR (0.8-3.0) APTT (25.1-36.5) SECONDS Puncture Site RIGHT RADIAL pCO2 33 L (35-45) mmHg pO2 106 H (75-100) mmHg Base Excess -2.9 L (-2.0-2.0) O2 Saturation 97.4 (94-100) g/dF ABG pH 7.41 (7.35-7.45) ABG HCO3 20.9 L (22-28) ABG O2 Sat (Measured) 99.4 (95-100) % Tomasz Test YES A-a Gradient 81 a/A Ratio 0.57 Hemoglobin 13.9 Carboxyhemoglobin 1.2 (0.0-6.9) % THgb Methemoglobin 0.9 L (1.4-1.5) % Temperature 37.0 C POC O2 Flow Rate 32 % Sodium 136 L 139 (137-145) mmol/L Potassium 4.2 3.8 3.7 (3.5-5.1) mmol/L Chloride 110 H 109 H (98-107) mmol/L Carbon Dioxide 19 L 22 (22-30) mmol/L Anion Gap 10.5 11.8 (5-15) MEQ/L BUN 8 11 (7-17) mg/dL Creatinine 0.66 0.75 (0.52-1.04) mg/dL Estimated GFR > 60.0 > 60.0 ML/MIN Glucose 112 H 124 H (74-106) mg/dL Calcium 7.8 L 7.5 L (8.4-10.2) mg/dL Total Bilirubin 4.20 H 4.50 H (0.2-1.3) mg/dL AST 526 H 469 H (14-36) U/L ALT 129 H 118 H (0-35) U/L Alkaline Phosphatase 908 H 938 H (38-126) U/L Serum Total Protein 6.0 L 5.8 L (6.3-8.2) g/dL Albumin 2.7 L 2.7 L (3.5-5.0) g/dL 07/19/22 07/19/22 07/19/22 Range/Units 04:35 04:35 04:35 WBC 16.1 H (4.0-10.5) x10^3/uL RBC 3.80 L (4.1-5.4) x10^6/uL Hgb 11.5 L (12.0-16.0) g/dL Hct 34.3 L (35-47) % MCV 90.3 (78-100) fL MCH 30.3 (26-32) pg MCHC 33.5 (32-36) g/dL RDW 17.1 H (11.5-14.0) % Plt Count 288 (150-450) x10^3/uL MPV 11.3 H (7.5-11.0) fL Gran % 91.5 H (36.0-66.0) % Immature Gran % (Auto) 0.6 H (0.00-0.4) % Nucleat RBC Rel Count 0.0 (0.00-0.1) % Eos # (Auto) 0 (0-0.5) x10^3/uL Immature Gran # (Auto) 0.09 H (0.00-0.03) x10^3u/L Absolute Lymphs (auto) 0.79 L (1.0-4.6) x10^3/uL Absolute Monos (auto) 0.45 (0.0-1.3) x10^3/uL Absolute Nucleated RBC 0.00 (0.00-0.01) x10^3u/L Lymphocytes % 4.9 L (24.0-44.0) % Monocytes % 2.8 (0.0-12.0) % Eosinophils % 0.0 (0.00-5.0) % Basophils % 0.2 (0.0-0.4) % Absolute Granulocytes 14.70 H (1.4-6.9) x10^3/uL Basophils # 0.04 (0-0.4) x10^3/uL PT 15.9 H (9.4-12.5) SECONDS INR 1.56 (0.8-3.0) APTT 33.9 (25.1-36.5) SECONDS Puncture Site pCO2 (35-45) mmHg pO2 (75-100) mmHg Base Excess (-2.0-2.0) O2 Saturation (94-100) g/dF ABG pH (7.35-7.45) ABG HCO3 (22-28) ABG O2 Sat (Measured) (95-100) % Tomasz Test A-a Gradient a/A Ratio Hemoglobin Carboxyhemoglobin (0.0-6.9) % THgb Methemoglobin (1.4-1.5) % Temperature C POC O2 Flow Rate % Sodium 137 (137-145) mmol/L Potassium 3.6 (3.5-5.1) mmol/L Chloride 107 (98-107) mmol/L Carbon Dioxide 24 (22-30) mmol/L Anion Gap 10.1 (5-15) MEQ/L BUN 11 (7-17) mg/dL Creatinine 0.75 (0.52-1.04) mg/dL Estimated GFR > 60.0 ML/MIN Glucose 129 H (74-106) mg/dL Calcium 7.5 L (8.4-10.2) mg/dL Total Bilirubin 4.60 H (0.2-1.3) mg/dL AST 454 H (14-36) U/L ALT 117 H (0-35) U/L Alkaline Phosphatase 936 H (38-126) U/L Serum Total Protein 5.8 L (6.3-8.2) g/dL Albumin 2.6 L (3.5-5.0) g/dL Radiology Exams: Radiology Procedures Category Date Time Status ABDOMEN AND PELVIS W CONTRAST [CT] Stat Exams 07/18/22 09:42 Completed BIOPSY LIVER [CT] Routine Exams 07/19/22 11:35 Ordered CHEST 1 VIEW (PORTABLE) Routine Exams 07/19/22 05:42 Completed CHEST 1 VIEW (PORTABLE) Stat Exams 07/18/22 08:46 Completed ECHO W/2D AND DOPPLER [US] Stat Exams 07/18/22 11:37 Draft KUB Urgent Exams 07/19/22 12:10 Ordered Multi-Disciplinary Progress Notes: Multi-Disciplinary Progress Notes 07/19/22 11:33 Case Management Note by Christine Perdomo S/W PATIENT- AT THIS TIME SHE WOULD LIKE TO CONTINUE TO PLAN TO RETURN HOME AT TIME OF DC. I OFFERED A REHAB STAY- PATIENT DECLINED. SHE FEELS LIKE SHE IS ABLE TO CARE FOR HERSELF AT HOME. SHE IS AGREEABLE TO [facility]. SHE WOULD LIKE REFERRAL FAXD TO [facility]. Initialized on 07/19/22 11:33 - END OF NOTE 07/19/22 01:38 Respiratory Note by Tavon Sanchez PT REFUSED 99 DUO [facility], STATED SHE WANTED TO BE LEFT ALONE TO SLEEP. Initialized on 07/19/22 01:38 - END OF NOTE Assessment/Plan (1) Pneumonia Current Visit: Yes Status: Acute Qualifiers: Pneumonia type: due to unspecified organism Laterality: left Lung location: lower lobe of lung Qualified Code(s): J18.9 - Pneumonia, unspecified organism Assessment & Plan: Likely, superimposed on mass. Pt is also wheezing. Day #2 of meropenem and vancomycin with some clinical improvement. Code(s): J18.9 - PNEUMONIA, UNSPECIFIED ORGANISM (2) Duodenal ulcer Current Visit: Yes Status: Acute Assessment & Plan: She is on IV PPI and carafate. Symptomatically, appears better. (3) Hepatic metastasis Current Visit: No Status: Acute Assessment & Plan: Spoke with radiologist and with pt and her son (him via phone) and will proceed with liver biopsy. Her INR and PTT are normal, but PT is elevated to 15 (was 13 at admission) - RN is making sure radiology is aware. Code(s): C78.7 - SECONDARY MALIG NEOPLASM OF LIVER AND INTRAHEPATIC BILE DUCT (4) Lung mass Current Visit: Yes Status: Acute Assessment & Plan: Treating for pneumonia as well with IV meropenem and vancomycin. Code(s): R91.8 - OTHER NONSPECIFIC ABNORMAL FINDING OF LUNG FIELD (5) Elevated liver enzymes Current Visit: Yes Status: Acute Assessment & Plan: Due to metastatic disease. Code(s): R74.8 - ABNORMAL LEVELS OF OTHER SERUM ENZYMES (6) Leukocytosis Current Visit: Yes Status: Acute Qualifiers: Leukocytosis type: unspecified Qualified Code(s): D72.829 - Elevated white blood cell count, unspecified Assessment & Plan: Expect it may stay high due to steroids Code(s): D72.829 - ELEVATED WHITE BLOOD CELL COUNT, UNSPECIFIED (7) Hypokalemia Current Visit: Yes Status: Resolved Code(s): E87.6 - HYPOKALEMIA (8) Wheezing Current Visit: Yes Status: Acute Code(s): R06.2 - WHEEZING (9) Metabolic acidemia Current Visit: Yes Status: Resolved Code(s): E87.20 - ACIDOSIS, UNSPECIFIED (10) Hematuria Current Visit: Yes Status: Acute Qualifiers: Hematuria type: gross Qualified Code(s): R31.0 - Gross hematuria Assessment & Plan: Likely - will check UA. Code(s): R31.9 - HEMATURIA, UNSPECIFIED
--- NOTE | 2022-07-19 13:12 | XRAY ---
Indication: Multiple liver lesions. Informed consent obtained. Patient placed on the CT table in a left lateral decubitus position. Cutaneous markers placed and then CT was performed for localization of a right lobe hepatic lesion. Skin was then prepped and draped in sterile fashion. 1% lidocaine plain used for local anesthesia. Tiny skin incision made. 17-gauge guiding needle with inner trocar was then percutaneously inserted and advanced with the tip positioned in the peripheral hepatic lesion using CT guidance. Inner trocar was removed and a 18-gauge Temno biopsy needle was then inserted into the guiding needle. Multiple biopsies obtained, collected, and sent to pathology for interpretation. At the end, all needles were removed. Hemostasis achieved using digital pressure over the puncture site. Small Band-Aid applied. Repeat CT performed through the biopsied liver. No perihepatic fluid to suggest hemorrhage. Postoperative instructions and orders given. Patient was discharged to her room. Impression: Technically successful CT-guided percutaneous liver biopsy. No immediate complications.
[2022-07-19] MEDS: Ativan 2 MG/1 ML VIAL IV PRN (14:43)
[2022-07-19 14:47] LABS: ADD URINE CULTURE? ORDERED SEPARATELY (NO)
[2022-07-19 14:54] LABS: Appearance Clear (Clear); Bacteria None Seen /HPF (None Seen); Bilirubin Small (Negative); Blood Moderate (Negative); Epithelial Cells Rare /HPF (None Seen); Glucose, Urine Negative (Negative); Hyaline Casts NONE SEEN /LPF (0-2); Ketones Trace (Negative); Leukocyte Esterase Negative (Negative); Nitrite Negative (Negative); Ph 5.5 (4.6-8.0); Protein,Urine Dip 30 (Negative); RBC 51-100 /HPF (0-5); Specific Gravity >=1.030 (1.005-1.030)
[2022-07-19] MEDS ORDERED: XYLOCAINE 1% HCL 20 ML MDV IJ ONE (16:16)
[2022-07-19] MEDS ORDERED: Tessalon Perles 100 MG PO PRN (16:32)
[2022-07-19] MEDS ORDERED: MORPHINE SULFATE 2 MG INJ IV PRN (16:33)
[2022-07-19] MEDS ORDERED: MOTRIN 600 MG PO PRN (16:33)
[2022-07-19] MEDS ORDERED: Oxy-IR 5 MG PO PRN (16:35)
[2022-07-19] MEDS: Dextrose 5%-NS IV Solution 1000 ML 1,000 ML IV SCH ×3 (21:18→23:30)
[2022-07-20] MEDS: Lactated Ringers 1,000 ML IV SCH (00:07)
[2022-07-20] MEDS: Sodium Chloride 0.9% 1000 ML 1,000 ML IV SCH (00:07)
[2022-07-20] MEDS: Zofran 4 MG/2 ML VIAL IV SCH ×6 (00:08→20:51)
[2022-07-20] MEDS: VANCOMYCIN 1 GRAM/200 ML BAG 1 GM/200 ML PIGGYBACK IV SCH ×2 (00:28→18:22)
[2022-07-20] MEDS: DUONEB 0.5-3 MG/3 ml Neb IH SCH ×4 (01:52→19:49)
[2022-07-20] MEDS ORDERED: Fosamax 70 MG PO SCH (06:00)
[2022-07-20 06:06] LABS: Absolute Neutrophil Ct (ANC) 14.33 x10^3/uL (1.4-6.9); BASOPHIL % 0.1 % (0.0-0.4); Basophil (Absolute #) 0.01 x10^3/uL (0-0.4); Eosinophil (Absolute #) 0 x10^3/uL (0-0.5); Hemoglobin 11.6 g/dL (12.0-16.0); IMMATURE GRAN % 0.6 % (0.00-0.4); Lymphocyte (Absolute #) 0.61 x10^3/uL (1.0-4.6); Lymphocytes % 3.9 % (24.0-44.0); Mean Cell Volume 91.4 fL (78-100); Mean Corpuscular Hemoglobin 29.4 pg (26-32); Mean Corpuscular Hgb Concent. 32.2 g/dL (32-36); Mean Platelet Volume 10.4 fL (7.5-11.0); Monocyte (Absolute #) 0.58 x10^3/uL (0.0-1.3); Monocytes % 3.7 % (0.0-12.0); Neutrophil % 91.7 % (36.0-66.0); Platelet Count 305 x10^3/uL (150-450); Red Blood Count 3.94 x10^6/uL (4.1-5.4); Red Cell Distribution Width 17.2 % (11.5-14.0); White Blood Count 15.6 x10^3/uL (4.0-10.5)
[2022-07-20] MEDS: solu-MEDROL 40 MG, Sterile H2O 10 ml 1 ML IV SCH ×6 (06:30→21:40)
[2022-07-20 06:37] LABS: ALBUMIN 2.8 g/dL (3.5-5.0); ALKALINE PHOSPHATASE 1174 U/L (38-126); ANION GAP 10.5 MEQ/L (5-15); BLOOD UREA NITROGEN 17 mg/dL (7-17); CHLORIDE 109 mmol/L (98-107); Calcium 7.8 mg/dL (8.4-10.2); Carbon Dioxide 24 mmol/L (22-30); Creatinine 1 0.71 mg/dL (0.52-1.04); EST GLOMERULAR FILTRATION RATE > 60.0 ML/MIN; Glucose 132 mg/dL (74-106); Potassium 3.4 mmol/L (3.5-5.1); SGOT/AST 480 U/L (14-36); SGPT/ALT 123 U/L (0-35); SODIUM 140 mmol/L (137-145); Total Protein 6.1 g/dL (6.3-8.2)
[2022-07-20] MEDS: FLUTICASONE-SALMETEROL 250-50 IH SCH ×2 (07:19→19:51)
[2022-07-20] MEDS: PROTONIX 40 MG IV IV SCH ×2 (08:25→21:34)
[2022-07-20] MEDS: Carafate SUSPENSION 1000 MG/10 ML PO SCH ×4 (08:27→21:32)
[2022-07-20] MEDS: THERAGRAN MULTIVITAMIN PO SCH (12:11)
[2022-07-20] MEDS: Calcium 500MG W/Vit D Tablet PO SCH (12:11)
[2022-07-20] MEDS: ECOTRIN 81 MG PO SCH (12:11)
[2022-07-20] MEDS: Merrem 1 GM in Sodium Chloride 100ML MINI-BAG PLUS 100 ML IV SCH ×2 (12:12→21:42)
[2022-07-20] MEDS: Acidophilus TABLET PO SCH ×3 (12:12→21:32)
[2022-07-20] MEDS: Lexapro PO SCH (12:16)
[2022-07-20] MEDS: Klor Con PO SCH (13:11)
[2022-07-20] MEDS: Tums EX 750 MG PO SCH (13:11)
[2022-07-20] MEDS: Transderm Scop 1.5MG Patch TOP SCH (15:22)
--- NOTE | 2022-07-20 16:16 | PCM.NOTE ---
Date and Time: 07/20/22 1611 Subjective Assessment: She told the nurse she feels "better." Yesterday wanted a shower, food, and to go home! Was 1-2 assist yesterday. She is coughing intermittently during my visit. Asking if I've talked to her son. No complaint of pain to me. Had told the nurse her abd was "sore." - Review of Systems Constitutional: No Fever Respiratory: Cough Objective Exam General Appearance: no apparent distress, alert, other (on O2 per NC) Neurologic Exam: oriented x 3, cooperative Skin Exam: normal color, warm, dry, No rash Eye Exam: eyes nml inspection Ears, Nose, Throat Exam: moist mucous membranes Neck Exam: normal inspection Respiratory Exam: diminished breath sounds (poor air exchange.), wheezing (faint, expiratory), No crackles/rales, No rhonchi Cardiovascular Exam: regular rate/rhythm, normal heart sounds, No murmur Gastrointestinal/Abdomen Exam: soft, normal bowel sounds, hepatomegaly, No tenderness, No guarding, No rebound Extremity Exam: normal inspection, other (SCDs in place), No pedal edema, No swelling Back Exam: normal inspection, No rash OBJECTIVE DATA Vital Signs: Vital Signs - 24 hr Temp Pulse Resp BP Pulse Ox 07/20/22 12:59 98 H 18 98 07/20/22 12:00 97.3 F 101 H 29 H 123/76 94 L 07/20/22 08:00 97.1 F 104 H 19 118/66 92 L 07/20/22 07:07 100 H 18 99 07/20/22 04:00 97.1 F 108 H 18 113/63 100 07/20/22 00:00 97.3 F 118 H 28 H 124/67 100 07/19/22 20:00 97.3 F 113 H 28 H 127/62 100 07/19/22 19:49 100 H 28 H 95 Pain Assessment - Last Documented Pain Intensity 0 Intake and Output: Intake & Output 07/18/22 07/19/22 07/20/22 07/21/22 11:59 11:59 11:59 11:59 Intake Total 3074 681 2490 Output Total 750 1600 650 Balance 9044 -124 1840 Weight 60.3 kg 60.3 kg Lab Results: Lab Results-Last 24 Hours 07/20/22 07/20/22 07/20/22 Range/Units 05:46 05:46 05:46 WBC 15.6 H (4.0-10.5) x10^3/uL RBC 3.94 L (4.1-5.4) x10^6/uL Hgb 11.6 L (12.0-16.0) g/dL Hct 36.0 (35-47) % MCV 91.4 (78-100) fL MCH 29.4 (26-32) pg MCHC 32.2 (32-36) g/dL RDW 17.2 H (11.5-14.0) % Plt Count 305 (150-450) x10^3/uL MPV 10.4 (7.5-11.0) fL Gran % 91.7 H (36.0-66.0) % Immature Gran % (Auto) 0.6 H (0.00-0.4) % Nucleat RBC Rel Count 0.0 (0.00-0.1) % Eos # (Auto) 0 (0-0.5) x10^3/uL Immature Gran # (Auto) 0.10 H (0.00-0.03) x10^3u/L Absolute Lymphs (auto) 0.61 L (1.0-4.6) x10^3/uL Absolute Monos (auto) 0.58 (0.0-1.3) x10^3/uL Absolute Nucleated RBC 0.00 (0.00-0.01) x10^3u/L Lymphocytes % 3.9 L (24.0-44.0) % Monocytes % 3.7 (0.0-12.0) % Eosinophils % 0.0 (0.00-5.0) % Basophils % 0.1 (0.0-0.4) % Absolute Granulocytes 14.33 H (1.4-6.9) x10^3/uL Basophils # 0.01 (0-0.4) x10^3/uL Sodium 140 (137-145) mmol/L Potassium 3.4 L (3.5-5.1) mmol/L Chloride 109 H (98-107) mmol/L Carbon Dioxide 24 (22-30) mmol/L Anion Gap 10.5 (5-15) MEQ/L BUN 17 (7-17) mg/dL Creatinine 0.71 (0.52-1.04) mg/dL Estimated GFR > 60.0 ML/MIN Glucose 132 H (74-106) mg/dL Calcium 7.8 L (8.4-10.2) mg/dL Total Bilirubin 5.30 H (0.2-1.3) mg/dL AST 480 H (14-36) U/L ALT 123 H (0-35) U/L Alkaline Phosphatase 1174 H (38-126) U/L Serum Total Protein 6.1 L (6.3-8.2) g/dL Albumin 2.8 L (3.5-5.0) g/dL Procalcitonin 5.600 H* (0.030-0.080) ng/mL Radiology Exams: Radiology Procedures Category Date Time Status BIOPSY LIVER [CT] Routine Exams 07/19/22 11:35 Completed CHEST 1 VIEW (PORTABLE) Routine Exams 07/19/22 05:42 Completed CHEST 1 VIEW (PORTABLE) Routine Exams 07/20/22 12:20 Taken Multi-Disciplinary Progress Notes: Multi-Disciplinary Progress Notes 07/20/22 02:01 Respiratory Note by Tavon Sanchez PT REFUSED 0100 NEB [place], PT AWARE TO CALL FOR RT IF NEEDED. INFORMED NURSING. Initialized on 07/20/22 02:01 - END OF NOTE Assessment/Plan (1) Pneumonia Current Visit: Yes Status: Acute Qualifiers: Pneumonia type: due to unspecified organism Laterality: left Lung location: lower lobe of lung Qualified Code(s): J18.9 - Pneumonia, unspecified organism Assessment & Plan: on meropenem and vancomycin Code(s): J18.9 - PNEUMONIA, UNSPECIFIED ORGANISM (2) Duodenal ulcer Current Visit: Yes Status: Acute Assessment & Plan: she is feeling significantly better. Tr po. (3) Hepatic metastasis Current Visit: No Status: Chronic Assessment & Plan: Liver bx done yesterday; await results. Code(s): C78.7 - SECONDARY MALIG NEOPLASM OF LIVER AND INTRAHEPATIC BILE DUCT (4) Lung mass Current Visit: Yes Status: Chronic Code(s): R91.8 - OTHER NONSPECIFIC ABNORMAL FINDING OF LUNG FIELD (5) Elevated liver enzymes Current Visit: Yes Status: Acute Assessment & Plan: fairly stable. Due to metastatic disease. Code(s): R74.8 - ABNORMAL LEVELS OF OTHER SERUM ENZYMES (6) Leukocytosis Current Visit: Yes Status: Acute Qualifiers: Leukocytosis type: unspecified Qualified Code(s): D72.829 - Elevated white blood cell count, unspecified Assessment & Plan: Initially due to pneumonia, but now the steroids we are giving are a factor. Code(s): D72.829 - ELEVATED WHITE BLOOD CELL COUNT, UNSPECIFIED (7) Hypokalemia Current Visit: Yes Status: Acute Assessment & Plan: mild Code(s): E87.6 - HYPOKALEMIA (8) Wheezing Current Visit: Yes Status: Acute Code(s): R06.2 - WHEEZING (9) Hematuria Current Visit: Yes Status: Acute Qualifiers: Hematuria type: gross Qualified Code(s): R31.0 - Gross hematuria Code(s): R31.9 - HEMATURIA, UNSPECIFIED (10) DVT Prophylaxis Current Visit: Yes Status: Acute Assessment & Plan: no lovenox as her liver metastases are already affecting her PT somewhat. She has SCDs on currently.
[2022-07-20] MEDS: Nystatin SUSPENSION 60 ML PO SCH ×2 (18:46→21:33)
[2022-07-20] MEDS: Dextrose 5%-NS IV Solution 1000 ML 1,000 ML IV SCH (19:41)
--- NOTE | 2022-07-20 20:10 | XRAY ---
Indication: Increasing cough. Positive Covid 19. Comparison: July 19, 2022 Portable chest unchanged again hyperinflated with right upper lung subsegmental atelectasis/scarring and small left effusion. Heart not enlarged. No new cardiopulmonary abnormalities. Comment: Preliminary interpretation made by [facility]. No critical discrepancy.
[2022-07-21] MEDS: Zofran 4 MG/2 ML VIAL IV SCH ×7 (00:13→23:50)
[2022-07-21] MEDS: DUONEB 0.5-3 MG/3 ml Neb IH SCH ×4 (01:22→18:35)
[2022-07-21] MEDS: solu-MEDROL 40 MG, Sterile H2O 10 ml 1 ML IV SCH ×6 (05:55→21:35)
[2022-07-21 05:58] LABS: Absolute Neutrophil Ct (ANC) 13.22 x10^3/uL (1.4-6.9); BASOPHIL % 0.1 % (0.0-0.4); Basophil (Absolute #) 0.01 x10^3/uL (0-0.4); Eosinophil (Absolute #) 0 x10^3/uL (0-0.5); Hemoglobin 11.3 g/dL (12.0-16.0); IMMATURE GRAN # 0.11 x10^3u/L (0.00-0.03); IMMATURE GRAN % 0.8 % (0.00-0.4); Lymphocytes % 4.1 % (24.0-44.0); Mean Cell Volume 89.5 fL (78-100); Mean Corpuscular Hemoglobin 29.7 pg (26-32); Mean Corpuscular Hgb Concent. 33.2 g/dL (32-36); Mean Platelet Volume 10.6 fL (7.5-11.0); Monocyte (Absolute #) 0.61 x10^3/uL (0.0-1.3); Monocytes % 4.2 % (0.0-12.0); Neutrophil % 90.8 % (36.0-66.0); Platelet Count 286 x10^3/uL (150-450); Red Cell Distribution Width 17.2 % (11.5-14.0); White Blood Count 14.6 x10^3/uL (4.0-10.5)
[2022-07-21 06:16] LABS: ALBUMIN 2.7 g/dL (3.5-5.0); ALKALINE PHOSPHATASE 1173 U/L (38-126); ANION GAP 9.5 MEQ/L (5-15); BLOOD UREA NITROGEN 17 mg/dL (7-17); CHLORIDE 107 mmol/L (98-107); Carbon Dioxide 26 mmol/L (22-30); Creatinine 1 0.77 mg/dL (0.52-1.04); EST GLOMERULAR FILTRATION RATE > 60.0 ML/MIN; Glucose 119 mg/dL (74-106); Potassium 3.4 mmol/L (3.5-5.1); SGOT/AST 451 U/L (14-36); SGPT/ALT 131 U/L (0-35); SODIUM 139 mmol/L (137-145); Total Protein 5.8 g/dL (6.3-8.2)
[2022-07-21] MEDS: FLUTICASONE-SALMETEROL 250-50 IH SCH ×2 (06:22→18:45)
[2022-07-21] MEDS: Calcium 500MG W/Vit D Tablet PO SCH (08:10)
[2022-07-21] MEDS: Tums EX 750 MG PO SCH (08:10)
[2022-07-21] MEDS: ECOTRIN 81 MG PO SCH (08:10)
[2022-07-21] MEDS: Klor Con PO SCH (08:11)
[2022-07-21] MEDS: Nystatin SUSPENSION 60 ML PO SCH ×4 (08:11→21:56)
[2022-07-21] MEDS: Lexapro PO SCH (08:11)
[2022-07-21] MEDS: Acidophilus TABLET PO SCH ×3 (08:11→21:33)
[2022-07-21] MEDS: THERAGRAN MULTIVITAMIN PO SCH (08:11)
[2022-07-21] MEDS: Carafate SUSPENSION 1000 MG/10 ML PO SCH ×4 (08:12→21:34)
[2022-07-21] MEDS: PROTONIX 40 MG IV IV SCH ×2 (08:13→21:34)
[2022-07-21] MEDS: Merrem 1 GM in Sodium Chloride 100ML MINI-BAG PLUS 100 ML IV SCH ×2 (08:13→21:34)
--- NOTE | 2022-07-21 11:14 | PCM.NOTE ---
Date and Time: 07/21/22 1110 Subjective Assessment: She is not vomiting, feels "better," is working on her iPad. She says she is not eating a lot. Is missing her glasses. She does have another pair at home; they are prescription. - Review of Systems Constitutional: No Fever Abdominal/Gastrointestinal: No Vomiting Objective Exam General Appearance: no apparent distress, thin Neurologic Exam: alert, cooperative Skin Exam: normal color, warm, dry, No rash Eye Exam: eyes nml inspection Ears, Nose, Throat Exam: moist mucous membranes Neck Exam: normal inspection Respiratory Exam: diminished breath sounds (diminished in LLL, otherwise fair AE), No crackles/rales, No rhonchi, No wheezing Cardiovascular Exam: regular rate/rhythm, normal heart sounds, No murmur Gastrointestinal/Abdomen Exam: soft, tenderness (epigastrum), hepatomegaly, No normal bowel sounds (hypoactive but present), No mass, No guarding, No rebound Extremity Exam: normal inspection, No pedal edema, No swelling OBJECTIVE DATA Vital Signs: Vital Signs - 24 hr Temp Pulse Resp BP Pulse Ox 07/21/22 07:49 97.0 F 95 H 18 122/58 100 07/21/22 06:23 84 16 100 07/21/22 04:00 97.5 F 82 16 135/64 100 07/21/22 01:22 95 H 20 98 07/21/22 00:00 97.6 F 104 H 22 150/60 100 07/20/22 20:00 97.5 F 96 H 16 115/59 93 L 07/20/22 19:49 95 H 20 95 07/20/22 16:00 97.0 F 98 H 21 119/61 95 07/20/22 12:59 98 H 18 98 07/20/22 12:00 97.3 F 101 H 29 H 123/76 94 L Pain Assessment - Last Documented Pain Intensity 0 Intake and Output: Intake & Output 07/18/22 07/19/22 07/20/22 07/21/22 11:59 11:59 11:59 11:59 Intake Total 3074 681 2490 480 Output Total 750 1600 650 700 Balance 2324 919 1840 -220 Weight 60.3 kg 60.3 kg Lab Results: Lab Results-Last 24 Hours 02/05/23 02/05/23 Range/Units 05:15 05:15 WBC 14.6 H (4.0-10.5) x10^3/uL RBC 3.80 L (4.1-5.4) x10^6/uL Hgb 11.3 L (12.0-16.0) g/dL Hct 34.0 L (35-47) % MCV 89.5 (78-100) fL MCH 29.7 (26-32) pg MCHC 33.2 (32-36) g/dL RDW 17.2 H (11.5-14.0) % Plt Count 286 (150-450) x10^3/uL MPV 10.6 (7.5-11.0) fL Gran % 90.8 H (36.0-66.0) % Immature Gran % (Auto) 0.8 H (0.00-0.4) % Nucleat RBC Rel Count 0.0 (0.00-0.1) % Eos # (Auto) 0 (0-0.5) x10^3/uL Immature Gran # (Auto) 0.11 H (0.00-0.03) x10^3u/L Absolute Lymphs (auto) 0.60 L (1.0-4.6) x10^3/uL Absolute Monos (auto) 0.61 (0.0-1.3) x10^3/uL Absolute Nucleated RBC 0.00 (0.00-0.01) x10^3u/L Lymphocytes % 4.1 L (24.0-44.0) % Monocytes % 4.2 (0.0-12.0) % Eosinophils % 0.0 (0.00-5.0) % Basophils % 0.1 (0.0-0.4) % Absolute Granulocytes 13.22 H (1.4-6.9) x10^3/uL Basophils # 0.01 (0-0.4) x10^3/uL Sodium 139 (137-145) mmol/L Potassium 3.4 L (3.5-5.1) mmol/L Chloride 107 (98-107) mmol/L Carbon Dioxide 26 (22-30) mmol/L Anion Gap 9.5 (5-15) MEQ/L BUN 17 (7-17) mg/dL Creatinine 0.77 (0.52-1.04) mg/dL Estimated GFR > 60.0 ML/MIN Glucose 119 H (74-106) mg/dL Calcium 8.0 L (8.4-10.2) mg/dL Total Bilirubin 5.90 H (0.2-1.3) mg/dL AST 451 H (14-36) U/L ALT 131 H (0-35) U/L Alkaline Phosphatase 1173 H (38-126) U/L Serum Total Protein 5.8 L (6.3-8.2) g/dL Albumin 2.7 L (3.5-5.0) g/dL Radiology Exams: Radiology Procedures Category Date Time Status BIOPSY LIVER [CT] Routine Exams 07/19/22 11:35 Completed CHEST 1 VIEW (PORTABLE) Routine Exams 07/20/22 12:20 Completed Assessment/Plan (1) Pneumonia Current Visit: Yes Status: Acute Qualifiers: Pneumonia type: due to unspecified organism Laterality: left Lung location: lower lobe of lung Qualified Code(s): J18.9 - Pneumonia, unspecified organism Assessment & Plan: on meropenem and vancomycin; tomorrow would consider de-escalating the antibiotics. Code(s): J18.9 - PNEUMONIA, UNSPECIFIED ORGANISM (2) Duodenal ulcer Current Visit: Yes Status: Acute Assessment & Plan: improving symptomatically. Could try d/c scopolamine patch tomorrow. (3) Hepatic metastasis Current Visit: No Status: Chronic Assessment & Plan: await liver bx results Code(s): C78.7 - SECONDARY MALIG NEOPLASM OF LIVER AND INTRAHEPATIC BILE DUCT (4) Lung mass Current Visit: Yes Status: Chronic Code(s): R91.8 - OTHER NONSPECIFIC ABNORMAL FINDING OF LUNG FIELD (5) Elevated liver enzymes Current Visit: Yes Status: Acute Code(s): R74.8 - ABNORMAL LEVELS OF OTHER SERUM ENZYMES (6) Leukocytosis Current Visit: Yes Status: Acute Qualifiers: Leukocytosis type: unspecified Qualified Code(s): D72.829 - Elevated white blood cell count, unspecified Assessment & Plan: 14.6 today Code(s): D72.829 - ELEVATED WHITE BLOOD CELL COUNT, UNSPECIFIED (7) Hypokalemia Current Visit: Yes Status: Acute Assessment & Plan: mild, increase po potassium Code(s): E87.6 - HYPOKALEMIA (8) Wheezing Current Visit: Yes Status: Resolved Code(s): R06.2 - WHEEZING (9) Hematuria Current Visit: Yes Status: Acute Qualifiers: Hematuria type: gross Qualified Code(s): R31.0 - Gross hematuria Code(s): R31.9 - HEMATURIA, UNSPECIFIED (10) DVT Prophylaxis Current Visit: Yes Status: Acute
[2022-07-21] MEDS ORDERED: TROUGH DRUG LEVELS IJ ONE (11:30)
[2022-07-21] MEDS: VANCOMYCIN 1 GRAM/200 ML BAG 1 GM/200 ML PIGGYBACK IV SCH (12:26)
[2022-07-21] MEDS: Ativan 2 MG/1 ML VIAL IV PRN (22:44)
[2022-07-22] MEDS: DUONEB 0.5-3 MG/3 ml Neb IH SCH ×4 (01:11→19:00)
[2022-07-22] MEDS: Zofran 4 MG/2 ML VIAL IV SCH (03:56)
[2022-07-22 05:12] LABS: Absolute Neutrophil Ct (ANC) 12.29 x10^3/uL (1.4-6.9); BASOPHIL % 0.1 % (0.0-0.4); Basophil (Absolute #) 0.02 x10^3/uL (0-0.4); Eosinophil (Absolute #) 0 x10^3/uL (0-0.5); Hemoglobin 10.7 g/dL (12.0-16.0); IMMATURE GRAN # 0.09 x10^3u/L (0.00-0.03); IMMATURE GRAN % 0.7 % (0.00-0.4); Lymphocyte (Absolute #) 0.54 x10^3/uL (1.0-4.6); Mean Cell Volume 88.9 fL (78-100); Mean Corpuscular Hemoglobin 29.7 pg (26-32); Mean Corpuscular Hgb Concent. 33.4 g/dL (32-36); Mean Platelet Volume 10.6 fL (7.5-11.0); Monocyte (Absolute #) 0.43 x10^3/uL (0.0-1.3); Monocytes % 3.2 % (0.0-12.0); Platelet Count 266 x10^3/uL (150-450); Red Cell Distribution Width 17.2 % (11.5-14.0); White Blood Count 13.4 x10^3/uL (4.0-10.5)
[2022-07-22] MEDS: solu-MEDROL 40 MG, Sterile H2O 10 ml 1 ML IV SCH ×2 (05:14)
[2022-07-22 05:29] LABS: ALBUMIN 2.4 g/dL (3.5-5.0); ALKALINE PHOSPHATASE 1095 U/L (38-126); ANION GAP 8.8 MEQ/L (5-15); BLOOD UREA NITROGEN 16 mg/dL (7-17); CHLORIDE 106 mmol/L (98-107); Calcium 8.1 mg/dL (8.4-10.2); Carbon Dioxide 28 mmol/L (22-30); Creatinine 1 0.72 mg/dL (0.52-1.04); EST GLOMERULAR FILTRATION RATE > 60.0 ML/MIN; Glucose 110 mg/dL (74-106); Potassium 3.5 mmol/L (3.5-5.1); SGOT/AST 437 U/L (14-36); SGPT/ALT 143 U/L (0-35); SODIUM 139 mmol/L (137-145); Total Protein 4.9 g/dL (6.3-8.2)
[2022-07-22] MEDS ORDERED: VANCOMYCIN 1.25 GM/250 ML BAG 1.25 GM/250 ML PIGGYBACK IV SCH (06:00)
[2022-07-22 07:14] LABS: Slide Review 1 YES
[2022-07-22] MEDS: FLUTICASONE-SALMETEROL 250-50 IH SCH ×2 (07:54→19:01)
[2022-07-22] MEDS: Carafate SUSPENSION 1000 MG/10 ML PO SCH ×4 (07:55→21:31)
--- NOTE | 2022-07-22 08:55 | PCM.NOTE ---
Date and Time: 07/22/22 0849 Subjective Assessment: Pt is asking about going home, says her sister can check on her. Is on 2L NC. Tr po. - Review of Systems Constitutional: No Fever Respiratory: Cough Objective Exam General Appearance: no apparent distress, alert, other (getting neb tx) Neurologic Exam: cooperative, normal mood/affect Skin Exam: normal color, warm, dry, No rash Eye Exam: eyes nml inspection Ears, Nose, Throat Exam: moist mucous membranes Neck Exam: normal inspection Respiratory Exam: lungs clear, diminished breath sounds (poor AE), No crackles/rales, No rhonchi, No wheezing Cardiovascular Exam: regular rate/rhythm, normal heart sounds, No murmur Gastrointestinal/Abdomen Exam: soft, normal bowel sounds, other (pt sitting up), No tenderness, No guarding, No rebound Extremity Exam: normal inspection, No pedal edema, No swelling Back Exam: normal inspection, No rash OBJECTIVE DATA Vital Signs: Vital Signs - 24 hr Temp Pulse Resp BP Pulse Ox 07/22/22 07:54 88 16 95 07/22/22 07:00 97.3 F 90 12 115/59 99 07/22/22 00:00 97.3 F 103 H 18 105/54 97 07/21/22 20:00 97.5 F 104 H 18 108/56 94 L 07/21/22 18:35 103 H 18 96 07/21/22 16:00 97.0 F 104 H 18 116/60 95 07/21/22 12:31 96 H 18 96 07/21/22 11:58 97.0 F 102 H 19 113/66 95 Pain Assessment - Last Documented Pain Intensity 0 Intake and Output: Intake & Output 07/19/22 07/20/22 07/21/22 07/22/22 11:59 11:59 11:59 11:59 Intake Total 681 2490 720 480 Output Total 1600 650 700 Balance -919 1840 20 480 Weight 60.3 kg Lab Results: Lab Results-Last 24 Hours 07/21/22 07/22/22 07/22/22 Range/Units 11:25 04:39 04:39 WBC 13.4 H (4.0-10.5) x10^3/uL RBC 3.60 L (4.1-5.4) x10^6/uL Hgb 10.7 L (12.0-16.0) g/dL Hct 32.0 L (35-47) % MCV 88.9 (78-100) fL MCH 29.7 (26-32) pg MCHC 33.4 (32-36) g/dL RDW 17.2 H (11.5-14.0) % Plt Count 266 (150-450) x10^3/uL MPV 10.6 (7.5-11.0) fL Gran % 92.0 H (36.0-66.0) % Immature Gran % (Auto) 0.7 H (0.00-0.4) % Nucleat RBC Rel Count 0.0 (0.00-0.1) % Eos # (Auto) 0 (0-0.5) x10^3/uL Immature Gran # (Auto) 0.09 H (0.00-0.03) x10^3u/L Absolute Lymphs (auto) 0.54 L (1.0-4.6) x10^3/uL Absolute Monos (auto) 0.43 (0.0-1.3) x10^3/uL Absolute Nucleated RBC 0.00 (0.00-0.01) x10^3u/L Lymphocytes % 4.0 L (24.0-44.0) % Monocytes % 3.2 (0.0-12.0) % Eosinophils % 0.0 (0.00-5.0) % Basophils % 0.1 (0.0-0.4) % Absolute Granulocytes 12.29 H (1.4-6.9) x10^3/uL Basophils # 0.02 (0-0.4) x10^3/uL Sodium 139 (137-145) mmol/L Potassium 3.5 (3.5-5.1) mmol/L Chloride 106 (98-107) mmol/L Carbon Dioxide 28 (22-30) mmol/L Anion Gap 8.8 (5-15) MEQ/L BUN 16 (7-17) mg/dL Creatinine 0.72 (0.52-1.04) mg/dL Estimated GFR > 60.0 ML/MIN Glucose 110 H (74-106) mg/dL Calcium 8.1 L (8.4-10.2) mg/dL Total Bilirubin 6.50 H (0.2-1.3) mg/dL AST 437 H (14-36) U/L ALT 143 H (0-35) U/L Alkaline Phosphatase 1095 H (38-126) U/L Serum Total Protein 4.9 L (6.3-8.2) g/dL Albumin 2.4 L (3.5-5.0) g/dL Vancomycin Trough 11.05 (10-20) ug/mL Slides for Path Review YES Radiology Exams: Radiology Procedures Category Date Time Status CHEST 1 VIEW (PORTABLE) Routine Exams 07/20/22 12:20 Completed Multi-Disciplinary Progress Notes: Multi-Disciplinary Progress Notes 07/22/22 01:11 Respiratory Note by Loren Simeon RT at bedside for scheduled neb tx. Pt refused tx at this time. She states she would like to sleep. Pt's SpO2, HR and RR all WNL. Pt reports no SOB at this time. Initialized on 07/22/22 01:11 - END OF NOTE Assessment/Plan (1) Pneumonia Current Visit: Yes Status: Acute Qualifiers: Pneumonia type: due to unspecified organism Laterality: left Lung location: lower lobe of lung Qualified Code(s): J18.9 - Pneumonia, unspecified organism Assessment & Plan: This is day #5 of merem and vancomycin, and pt is doing well clinically although still with O2 requirement (could be d/t Covid). Changing abx to po cefdinir. Pt may be able to d/c to home soon, but will have PT eval with respect to safety. Code(s): J18.9 - PNEUMONIA, UNSPECIFIED ORGANISM (2) Duodenal ulcer Current Visit: Yes Status: Acute (3) Hepatic metastasis Current Visit: No Status: Chronic Assessment & Plan: Biopsy is pending. Code(s): C78.7 - SECONDARY MALIG NEOPLASM OF LIVER AND INTRAHEPATIC BILE DUCT (4) Lung mass Current Visit: Yes Status: Chronic Code(s): R91.8 - OTHER NONSPECIFIC ABNORMAL FINDING OF LUNG FIELD (5) Elevated liver enzymes Current Visit: Yes Status: Acute Code(s): R74.8 - ABNORMAL LEVELS OF OTHER SERUM ENZYMES (6) Leukocytosis Current Visit: Yes Status: Acute Qualifiers: Leukocytosis type: unspecified Qualified Code(s): D72.829 - Elevated white blood cell count, unspecified Assessment & Plan: improved, down to 13.4. Code(s): D72.829 - ELEVATED WHITE BLOOD CELL COUNT, UNSPECIFIED (7) Hypokalemia Current Visit: Yes Status: Resolved Code(s): E87.6 - HYPOKALEMIA (8) Hematuria Current Visit: Yes Status: Acute Qualifiers: Hematuria type: gross Qualified Code(s): R31.0 - Gross hematuria Code(s): R31.9 - HEMATURIA, UNSPECIFIED (9) DVT Prophylaxis Current Visit: Yes Status: Acute
[2022-07-22] MEDS: Calcium 500MG W/Vit D Tablet PO SCH (09:56)
[2022-07-22] MEDS: ECOTRIN 81 MG PO SCH (09:56)
[2022-07-22] MEDS: Klor Con PO SCH (09:56)
[2022-07-22] MEDS: Acidophilus TABLET PO SCH ×3 (09:56→21:31)
[2022-07-22] MEDS: Lexapro PO SCH (09:56)
[2022-07-22] MEDS: FISH OIL 1,000 MG CAPSULE PO SCH (09:56)
[2022-07-22] MEDS: DELTASONE 20 MG PO SCH (09:56)
[2022-07-22] MEDS: THERAGRAN MULTIVITAMIN PO SCH (09:57)
[2022-07-22] MEDS: PROTONIX 40 MG IV IV SCH ×2 (09:57→21:31)
[2022-07-22] MEDS: OMNICEF 300 MG PO SCH ×2 (09:57→21:31)
[2022-07-22] MEDS: Tums EX 750 MG PO SCH (09:57)
[2022-07-22] MEDS: Nystatin SUSPENSION 60 ML PO SCH ×4 (09:57→21:31)
[2022-07-22] MEDS ORDERED: Omnicef 125 MG/5 ML SUSP PO SCH (10:00)
[2022-07-23] MEDS: DUONEB 0.5-3 MG/3 ml Neb IH SCH ×4 (00:53→18:03)
[2022-07-23] MEDS: FLUTICASONE-SALMETEROL 250-50 IH SCH ×2 (07:25→18:04)
[2022-07-23 07:28] LABS: Hematocrit 34.4 % (35-47); Hemoglobin 11.8 g/dL (12.0-16.0); Mean Cell Volume 88.9 fL (78-100); Mean Corpuscular Hemoglobin 30.5 pg (26-32); Mean Corpuscular Hgb Concent. 34.3 g/dL (32-36); Mean Platelet Volume 10.2 fL (7.5-11.0); Platelet Count 300 x10^3/uL (150-450); Red Blood Count 3.87 x10^6/uL (4.1-5.4); Red Cell Distribution Width 18.3 % (11.5-14.0); White Blood Count 17.9 x10^3/uL (4.0-10.5)
[2022-07-23 07:47] LABS: ALBUMIN 2.8 g/dL (3.5-5.0); ALKALINE PHOSPHATASE 1144 U/L (38-126); ANION GAP 6.8 MEQ/L (5-15); BLOOD UREA NITROGEN 16 mg/dL (7-17); CHLORIDE 106 mmol/L (98-107); Calcium 8.1 mg/dL (8.4-10.2); Carbon Dioxide 29 mmol/L (22-30); Creatinine 1 0.61 mg/dL (0.52-1.04); EST GLOMERULAR FILTRATION RATE > 60.0 ML/MIN; Glucose 83 mg/dL (74-106); Potassium 3.5 mmol/L (3.5-5.1); SGOT/AST 555 U/L (14-36); SGPT/ALT 187 U/L (0-35); SODIUM 138 mmol/L (137-145); Total Protein 5.8 g/dL (6.3-8.2)
[2022-07-23] MEDS: Carafate SUSPENSION 1000 MG/10 ML PO SCH ×4 (08:30→21:23)
[2022-07-23] MEDS ORDERED: LASIX 20 MG PO ONE (10:00)
[2022-07-23] MEDS: ECOTRIN 81 MG PO SCH (10:30)
[2022-07-23] MEDS: DELTASONE 20 MG PO SCH (10:30)
[2022-07-23] MEDS: Lexapro PO SCH (10:30)
[2022-07-23] MEDS: THERAGRAN MULTIVITAMIN PO SCH (10:30)
[2022-07-23] MEDS: Calcium 500MG W/Vit D Tablet PO SCH (10:30)
[2022-07-23] MEDS: Acidophilus TABLET PO SCH ×3 (10:30→21:22)
[2022-07-23] MEDS: OMNICEF 300 MG PO SCH ×2 (10:30→21:22)
[2022-07-23] MEDS: Tums EX 750 MG PO SCH (10:31)
[2022-07-23] MEDS: Nystatin SUSPENSION 60 ML PO SCH ×4 (10:31→21:22)
[2022-07-23] MEDS: Klor Con PO SCH (10:31)
[2022-07-23] MEDS: PROTONIX 40 MG IV IV SCH ×2 (10:31→21:23)
[2022-07-23] MEDS: Ativan 2 MG/1 ML VIAL IV PRN ×2 (10:31→21:21)
--- NOTE | 2022-07-23 12:53 | PCM.NOTE ---
Date and Time: 07/23/22 1248 Subjective Assessment: She is eating 50-100% of her meals. Today she says her breathing is worse. Denies pain or nausea. Would like to eat breakfast. - Review of Systems Constitutional: No Fever Abdominal/Gastrointestinal: No Vomiting Objective Exam General Appearance: no apparent distress, alert Neurologic Exam: oriented x 3, cooperative Skin Exam: warm, dry, jaundice (mild), No rash Ears, Nose, Throat Exam: moist mucous membranes Neck Exam: normal inspection Respiratory Exam: diminished breath sounds (poor to fair air exchange), wheezing (scattered, a bases), No crackles/rales, No rhonchi Cardiovascular Exam: regular rate/rhythm, normal heart sounds, No murmur Gastrointestinal/Abdomen Exam: soft, normal bowel sounds, No tenderness, No guarding, No rebound Extremity Exam: swelling (trace pretibial edema bilat) Back Exam: normal inspection, No rash OBJECTIVE DATA Vital Signs: Vital Signs - 24 hr Temp Pulse Resp BP Pulse Ox 07/23/22 11:42 98.0 F 97 H 16 109/53 96 07/23/22 10:31 19 07/23/22 07:55 97.9 F 90 16 125/59 94 L 07/23/22 07:49 93 H 20 100 07/23/22 04:00 97.9 F 93 H 20 106/55 95 07/22/22 23:36 96.0 F 94 H 21 113/54 100 07/22/22 20:00 97.5 F 101 H 115/54 99 07/22/22 19:02 107 H 14 97 07/22/22 16:00 97.4 F 86 19 115/55 100 07/22/22 13:38 87 16 97 Pain Assessment - Last Documented Pain Intensity 0 Intake and Output: Intake & Output 07/21/22 07/22/22 07/23/22 07/24/22 11:59 11:59 11:59 11:59 Intake Total 873 238 0806 Output Total 700 1975 Balance 20 840 -915 Lab Results: Lab Results-Last 24 Hours 07/17/22 07/19/22 07/20/22 Range/Units 16:00 12:47 05:46 WBC (4.0-10.5) x10^3/uL RBC (4.1-5.4) x10^6/uL Hgb (12.0-16.0) g/dL Hct (35-47) % MCV (78-100) fL MCH (26-32) pg MCHC (32-36) g/dL RDW (11.5-14.0) % Plt Count (150-450) x10^3/uL MPV (7.5-11.0) fL Sodium (137-145) mmol/L Potassium (3.5-5.1) mmol/L Chloride (98-107) mmol/L Carbon Dioxide (22-30) mmol/L Anion Gap (5-15) MEQ/L BUN (7-17) mg/dL Creatinine (0.52-1.04) mg/dL Estimated GFR ML/MIN Glucose (74-106) mg/dL Calcium (8.4-10.2) mg/dL Total Bilirubin (0.2-1.3) mg/dL AST (14-36) U/L ALT (0-35) U/L Alkaline Phosphatase (38-126) U/L Serum Total Protein (6.3-8.2) g/dL Albumin (3.5-5.0) g/dL PTH Intact Whole Molec 79 H (15-65) pg/mL SARS-CoV-2 Ag (Rapid) (NEGATIVE) Surg PTH Specimen SEE COMMENTS SEE COMMENTS 07/23/22 07/23/22 07/23/22 Range/Units 07:23 07:23 09:30 WBC 17.9 H (4.0-10.5) x10^3/uL RBC 3.87 L (4.1-5.4) x10^6/uL Hgb 11.8 L (12.0-16.0) g/dL Hct 34.4 L (35-47) % MCV 88.9 (78-100) fL MCH 30.5 (26-32) pg MCHC 34.3 (32-36) g/dL RDW 18.3 H (11.5-14.0) % Plt Count 300 (150-450) x10^3/uL MPV 10.2 (7.5-11.0) fL Sodium 138 (137-145) mmol/L Potassium 3.5 (3.5-5.1) mmol/L Chloride 106 (98-107) mmol/L Carbon Dioxide 29 (22-30) mmol/L Anion Gap 6.8 (5-15) MEQ/L BUN 16 (7-17) mg/dL Creatinine 0.61 (0.52-1.04) mg/dL Estimated GFR > 60.0 ML/MIN Glucose 83 (74-106) mg/dL Calcium 8.1 L (8.4-10.2) mg/dL Total Bilirubin 7.80 H (0.2-1.3) mg/dL AST 555 H (14-36) U/L ALT 187 H (0-35) U/L Alkaline Phosphatase 1144 H (38-126) U/L Serum Total Protein 5.8 L (6.3-8.2) g/dL Albumin 2.8 L (3.5-5.0) g/dL PTH Intact Whole Molec (15-65) pg/mL SARS-CoV-2 Ag (Rapid) NEGATIVE (NEGATIVE) Surg PTH Specimen Multi-Disciplinary Progress Notes: Multi-Disciplinary Progress Notes 07/23/22 08:23 Case Management Note by Christine Perdomo Addendum entered by Christine Perdomo 07/23/22 08:44: PATIENT AND FAMILY AWARE- [facility] PLAN [facility] WHEN MEDICALLY READY Original Note: [facility] ACC[facility] PATIENT Initialized on 07/23/22 08:23 - END OF NOTE 07/23/22 00:52 Respiratory Note by Loren Simeon RT at patient bedside for scheduled neb tx at 0050. Patient refused all assessments and neb tx at this time. Initialized on 07/23/22 00:52 - END OF NOTE 07/22/22 14:22 Nutrition Note by Inés Fiore F/u Note: Diet resumed to bland. Po intake 50-75%. No recent weight. Labs 2/6 = glu 110, elevated liver enzymes, alb 2.4, hgb 10.7, hct 32.0. goal #1)increase po intake >=75% consistently Will monitor and f/u prn. DANNY Mejía Initialized on 07/22/22 14:22 - END OF NOTE Assessment/Plan (1) Pneumonia Current Visit: Yes Status: Acute Qualifiers: Pneumonia type: due to unspecified organism Laterality: left Lung location: lower lobe of lung Qualified Code(s): J18.9 - Pneumonia, unspecified organism Assessment & Plan: on po Code(s): J18.9 - PNEUMONIA, UNSPECIFIED ORGANISM (2) Duodenal ulcer Current Visit: Yes Status: Acute Assessment & Plan: Doing great clinically. On carafate achs. (3) Hepatic metastasis Current Visit: No Status: Chronic Code(s): C78.7 - SECONDARY MALIG NEOPLASM OF LIVER AND INTRAHEPATIC BILE DUCT (4) Lung mass Current Visit: Yes Status: Chronic Code(s): R91.8 - OTHER NONSPECIFIC ABNORMAL FINDING OF LUNG FIELD (5) Elevated liver enzymes Current Visit: Yes Status: Acute Code(s): R74.8 - ABNORMAL LEVELS OF OTHER SERUM ENZYMES (6) Leukocytosis Current Visit: Yes Status: Acute Qualifiers: Leukocytosis type: unspecified Qualified Code(s): D72.829 - Elevated white blood cell count, unspecified Assessment & Plan: likely elevated now due to steroids. Code(s): D72.829 - ELEVATED WHITE BLOOD CELL COUNT, UNSPECIFIED (7) Hypokalemia Current Visit: Yes Status: Resolved Code(s): E87.6 - HYPOKALEMIA (8) Hematuria Current Visit: Yes Status: Acute Qualifiers: Hematuria type: gross Qualified Code(s): R31.0 - Gross hematuria Assessment & Plan: RN had reported some labial irritation. Using barrier cream. Code(s): R31.9 - HEMATURIA, UNSPECIFIED (9) DVT Prophylaxis Current Visit: Yes Status: Acute Assessment & Plan: Avoiding lovenox with duodenal ulcer and some PT increase due to liver dysfunction.
[2022-07-23] MEDS: Transderm Scop 1.5MG Patch TOP SCH (14:10)
[2022-07-24] MEDS: DUONEB 0.5-3 MG/3 ml Neb IH SCH ×2 (00:55→06:58)
[2022-07-24 05:11] LABS: Hematocrit 30.2 % (35-47); Hemoglobin 10.6 g/dL (12.0-16.0); Mean Cell Volume 87.3 fL (78-100); Mean Corpuscular Hemoglobin 30.6 pg (26-32); Mean Corpuscular Hgb Concent. 35.1 g/dL (32-36); Mean Platelet Volume 10.6 fL (7.5-11.0); Platelet Count 256 x10^3/uL (150-450); Red Blood Count 3.46 x10^6/uL (4.1-5.4); Red Cell Distribution Width 17.5 % (11.5-14.0); White Blood Count 15.5 x10^3/uL (4.0-10.5)
[2022-07-24 06:18] LABS: 027 TOX PROD PRESUMPTIVE NEGATIVE (NEGATIVE); TOXIGENIC C. DIFF ORG NEGATIVE (NEGATIVE)
[2022-07-24 06:19] LABS: ALBUMIN 2.5 g/dL (3.5-5.0); ALKALINE PHOSPHATASE 1049 U/L (38-126); BLOOD UREA NITROGEN 16 mg/dL (7-17); CHLORIDE 102 mmol/L (98-107); Calcium 7.6 mg/dL (8.4-10.2); Carbon Dioxide 35 mmol/L (22-30); Creatinine 1 0.59 mg/dL (0.52-1.04); EST GLOMERULAR FILTRATION RATE > 60.0 ML/MIN; Glucose 82 mg/dL (74-106); Potassium 3.2 mmol/L (3.5-5.1); SGOT/AST 550 U/L (14-36); SGPT/ALT 204 U/L (0-35); SODIUM 139 mmol/L (137-145); Total Protein 5.3 g/dL (6.3-8.2)
[2022-07-24] MEDS: FLUTICASONE-SALMETEROL 250-50 IH SCH (06:59)
[2022-07-24] MEDS: Carafate SUSPENSION 1000 MG/10 ML PO SCH ×2 (07:41→11:46)
[2022-07-24] MEDS: PROTONIX 40 MG IV IV SCH (10:51)
[2022-07-24] MEDS: DELTASONE 20 MG PO SCH (10:51)
[2022-07-24] MEDS: Calcium 500MG W/Vit D Tablet PO SCH (10:51)
[2022-07-24] MEDS: ECOTRIN 81 MG PO SCH (10:51)
[2022-07-24] MEDS: Acidophilus TABLET PO SCH (10:51)
[2022-07-24] MEDS: Lexapro PO SCH (10:52)
[2022-07-24] MEDS: THERAGRAN MULTIVITAMIN PO SCH (10:52)
[2022-07-24] MEDS: Tums EX 750 MG PO SCH (10:52)
[2022-07-24] MEDS: OMNICEF 300 MG PO SCH (10:52)
[2022-07-24] MEDS: Nystatin SUSPENSION 60 ML PO SCH (10:52)
[2022-07-24] MEDS: Klor Con PO SCH (10:52)
[2022-07-24] MEDS: FISH OIL 1,000 MG CAPSULE PO SCH (11:46)
--- NOTE | 2022-07-24 11:57 | PCM.DS ---
Discharge Summary Date of Admission: 07/16/22 11:50 Admitting Physician: IVAN MALONE Consults: Consults on Case 07/16/22 11:50 Consult Surgery ROUTINE Primary Care Provider: IVAN MALONE Allergies Allergies nickel Allergy (Verified 12/31/20 11:04) Penicillins Allergy (Verified 12/31/20 11:04) sulfamethoxazole [From Bactrim] Allergy (Verified 12/31/20 11:04) trimethoprim [From Bactrim] Allergy (Verified 12/31/20 11:04) Hospital Summary - Hospital Course Hospital Course: Pt is 77 yo female with new liver metastatic disease admitted from office with vomiting and abd pain, dehydration. Given IV fluids, then EGD and colonoscopy done - EGD showed duodenal ulcer. Prep too poor to evaluate colon. 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 Her LFTs have been elevated throughout the stay - decreased somewhat with IV fluids, but have been rising since then. Her Tbili went from 5.5 to 8.1 today. Her alk phos was 1400 prior to admission, and today is 1049. AST 550 and ALT 204. I spoke with hepatology when she initially came in about these numbers and the thought was that the numerous lesions were obstructing the bile ducts; I wanted to ensure that the health team did not want to transfer her up at that time. She was started on po carafate and her abd pain and vomiting improved quite a bit. She was noted to have pneumonia and was given meropenem and vancomycin. Has been on O2 per NC throughout her stay, until yesterday, when she started only wearing the O2 intermittently. She is finishing up day #3 of cefdinir today. She will be discharged to [facility] today. I have spoken with Dr. Lawson, oncology, who will see her on Friday. I have a call out to hepatology about the possibility of stenting, as discussed with Dr. Lawson. Pt to have OP PET scan scheduled. - Vitals & Intake/Output Vital Signs: Vital Signs Temperature 97.7 F 07/24/22 07:30 Pulse Rate 72 07/24/22 07:30 Respiratory Rate 20 07/24/22 07:30 Blood Pressure 141/66 07/24/22 07:30 O2 Sat by Pulse Oximetry 95 02/08/23 07:30 Intake & Output: Intake & Output 07/21/22 07/22/22 07/23/22 07/24/22 11:59 11:59 11:59 11:59 Intake Total 674 241 8073 1720 Output Total 700 4173 3600 Balance 20 957 -820 -4245 - Lab Result Diagrams: 07/24/22 05:08 07/24/22 05:08 Lab Results-Last 24 Hrs: Lab Results-Last 24 Hours 07/18/22 07/24/22 07/24/22 Range/Units 05:30 05:08 05:08 WBC 15.5 H (4.0-10.5) x10^3/uL RBC 3.46 L (4.1-5.4) x10^6/uL Hgb 10.6 L (12.0-16.0) g/dL Hct 30.2 L (35-47) % MCV 87.3 (78-100) fL MCH 30.6 (26-32) pg MCHC 35.1 (32-36) g/dL RDW 17.5 H (11.5-14.0) % Plt Count 256 (150-450) x10^3/uL MPV 10.6 (7.5-11.0) fL Sodium 139 (137-145) mmol/L Potassium 3.2 L (3.5-5.1) mmol/L Chloride 102 (98-107) mmol/L Carbon Dioxide 35 H (22-30) mmol/L Anion Gap 5.0 (5-15) MEQ/L BUN 16 (7-17) mg/dL Creatinine 0.59 (0.52-1.04) mg/dL Estimated GFR > 60.0 ML/MIN Glucose 82 (74-106) mg/dL POC Glucometer (74 to 106) mg/dL Calcium 7.6 L (8.4-10.2) mg/dL Total Bilirubin 8.10 H (0.2-1.3) mg/dL AST 550 H (14-36) U/L ALT 204 H (0-35) U/L Alkaline Phosphatase 1049 H (38-126) U/L Serum Total Protein 5.3 L (6.3-8.2) g/dL Albumin 2.5 L (3.5-5.0) g/dL C. difficile Screen NEGATIVE (NEGATIVE) C.difficile [id number] PRESUMPTIVE NEGATIVE (NEGATIVE) 07/24/22 Range/Units 05:17 WBC (4.0-10.5) x10^3/uL RBC (4.1-5.4) x10^6/uL Hgb (12.0-16.0) g/dL Hct (35-47) % MCV (78-100) fL MCH (26-32) pg MCHC (32-36) g/dL RDW (11.5-14.0) % Plt Count (150-450) x10^3/uL MPV (7.5-11.0) fL Sodium (137-145) mmol/L Potassium (3.5-5.1) mmol/L Chloride (98-107) mmol/L Carbon Dioxide (22-30) mmol/L Anion Gap (5-15) MEQ/L BUN (7-17) mg/dL Creatinine (0.52-1.04) mg/dL Estimated GFR ML/MIN Glucose (74-106) mg/dL POC Glucometer 86 (74 to 106) mg/dL Calcium (8.4-10.2) mg/dL Total Bilirubin (0.2-1.3) mg/dL AST (14-36) U/L ALT (0-35) U/L Alkaline Phosphatase (38-126) U/L Serum Total Protein (6.3-8.2) g/dL Albumin (3.5-5.0) g/dL C. difficile Screen (NEGATIVE) C.difficile [id number] (NEGATIVE) Micro Results-Entire Visit: Microbiology 07/19/22 15:10 Urine Culture - Final Urine, Catheterized NO GROWTH 07/15/22 16:22 Urine Culture - Final Urine, Void NO GROWTH - Procedures and Test Procedures and Tests throughout Hospitalization: Therapy Orders & Screens 07/15/22 14:41 Oxygen NASAL CANNULA 2 lpm Comment: Diagnosis: Dehydration,Vomiting,Liver Mass 07/15/22 20:11 Respiratory MDI BID Comment: WIXELLA 250/50 BID 1 PUFF Diagnosis: Dehydration,Vomiting,Liver Mass 07/16/22 07:00 Respiratory Therapy Assessment DAILY Comment: Diagnosis: Dehydration,Vomiting,Liver Mass 07/18/22 10:48 EKG STAT Comment: Diagnosis: ELEVATED LIVER ENZYMES, LUNG MASS 07/21/22 12:31 Flutter Therapy UD Comment: Diagnosis: ELEVATED LIVER ENZYMES, LUNG MASS 07/22/22 05:55 PT Eval & Treat (MD Order) ONCE Reason for Eval:: weakness; discharge planning Diagnosis: ELEVATED LIVER ENZYMES, LUNG MASS 07/22/22 09:22 RT Miscellaneous Order ROUTINE Comment: Physician Instructions: Reason For Exam: WEAN OFF OF O2 Diagnosis: ELEVATED LIVER ENZYMES, LUNG MASS Discharge Exam General Appearance: no apparent distress, thin Neurologic Exam: oriented x 3, cooperative Eye Exam: eyes nml inspection Ears, Nose, Throat Exam: moist mucous membranes Neck Exam: normal inspection Respiratory Exam: lungs clear, diminished breath sounds (good air exchange), No crackles/rales, No rhonchi, No wheezing Cardiovascular Exam: regular rate/rhythm, normal heart sounds, No murmur Gastrointestinal/Abdomen Exam: soft, normal bowel sounds, No tenderness, No guarding, No rebound Extremity Exam: normal inspection, No pedal edema, No swelling Skin Exam: warm, dry, jaundice (possible, mild), No rash Final Diagnosis/Problem List - Final Discharge Diagnosis/Problem (1) Pneumonia Current Visit: Yes Status: Acute Assessment & Plan: Treated with 4d vancomycin and meropenem and 3d of cefdinir. Code(s): J18.9 - PNEUMONIA, UNSPECIFIED ORGANISM (2) Duodenal ulcer Current Visit: Yes Status: Acute Assessment & Plan: being tx with carafate and ppi (3) Hepatic metastasis Current Visit: No Status: Chronic Code(s): C78.7 - SECONDARY MALIG NEOPLASM OF LIVER AND INTRAHEPATIC BILE DUCT (4) Lung mass Current Visit: Yes Status: Chronic Code(s): R91.8 - OTHER NONSPECIFIC ABNORMAL FINDING OF LUNG FIELD (5) Elevated liver enzymes Current Visit: Yes Status: Acute Code(s): R74.8 - ABNORMAL LEVELS OF OTHER SERUM ENZYMES (6) Leukocytosis Current Visit: Yes Status: Acute Code(s): D72.829 - ELEVATED WHITE BLOOD CELL COUNT, UNSPECIFIED (7) Hypokalemia Current Visit: Yes Status: Resolved Code(s): E87.6 - HYPOKALEMIA (8) Hematuria Current Visit: Yes Status: Resolved Assessment & Plan: grossly,today Code(s): R31.9 - HEMATURIA, UNSPECIFIED (9) DVT Prophylaxis Current Visit: Yes Status: Acute (10) High grade neuroendocrine carcinoma Current Visit: Yes Status: Acute Code(s): C7A.1 - MALIGNANT POORLY DIFFERENTIATED NEUROENDOCRINE TUMORS - Discharge Disposition: XFER OTHER Condition: Stable Prescriptions: New Lactobacillus Acidophilus [Acidophilus TABLET] 1 tab PO TID 5 Days #10 tablet Sucralfate 1000 mg/10 ml [Carafate SUSPENSION 1000 MG/10 ML] 1,000 mg PO ACHS 7 Days #28 tab Prednisone 20 mg [Deltasone 20 mg] 40 mg PO DAILY 5 Days #10 tablet Fluticasone Propionate [Flonase NASAL] 1 spray NS BID PRN 30 Days #1 unit PRN Reason: Allergies Potassium Chloride Tab* [Klor Con] 20 meq PO DAILY #30 tablet Nystatin 60 ml [Nystatin SUSPENSION 60 ML] 5 ml PO QID 4 Days #1 unit Cefdinir [Omnicef 300 mg] 300 mg PO BID 3 Days #6 cap PANTOPRAZOLE 40 mg Tablet [Protonix 40MG Tablet] 40 mg PO QAM 30 Days #30 tab Calcium Carbonate 750 mg [Tums EX 750 MG] 750 mg PO DAILY #30 tablet Albuterol Common Canister [Ventolin Common Canister] 4 puff IH Q4H PRN PRN #1 unit PRN Reason: Shortness Of Breath/Wheezing Albuterol 8 gm Mdi Hfa [Ventolin Hfa MDI] 8 gm IH Q4H PRN #1 unit PRN Reason: sob Continue Escitalopram Oxalate [Lexapro] 1 tab PO DAILY Multivitamin 1 tab PO DAILY Aspirin 81 gm Chew [Baby Aspirin 81 mg Chew] 1 tab PO DAILY Fluticasone/Umeclidin/Vilanter [Trelegy Ellipta 100-62.5-25] 1 puff IH DAILY Albuterol/Ipratropium 3ml Neb* [DUONEB 0.5-3 MG/3 ml Neb] 1 vial IH BID Atorvastatin Calcium [Lipitor 40Mg] 1 tab PO HS Montelukast Sodium 10 mg [Singulair 10 MG] 1 tab PO DAILY Calcium Carbonate/Vitamin D3 [Calcium 500-Vit D3 600 Tablet] 1 each PO DAILY [place]-3 Fatty Acids/Fish Oil [Fish Oil 1,000 mg Capsule] 1 tablet PO UD Ondansetron ODT 4 MG [Zofran Odt 4 mg] 4 mg PO Q6H PRN PRN #10 tablet PRN Reason: Vomiting Discontinued Alendronate Sodium 70 mg PO WEEKLY Additional Instructions: [facility] STAY CORRECTION ORDERS: ADMIT TO [facility] CARE REGULAR DIET 2L/NC PT/OT EVAL AND TREAT SEE ATTACHED MED LIST Follow up with: DENITA LAWSON [COURTESY STAFF] - 07/29/22 3:45 pm IVAN MALONE [Primary Care Provider] - Forms: Discharge Instructions, Transfer Record [facility]ency
[2022-07-24 14:00] VITALS: BP 135/60; PULSE 96; O2SAT 97
== END 2022-07-24 13:20 | DRG 194 ==
LOC: MED SURG 11:50 → OBSVTOIN 07-16 11:50
PROVIDERS: ADMIT Family Medicine; ATTEND Family Medicine
PROC: 0DJ08ZZ Inspection of Upper Intestinal Tract, Via Natural or Artificial Opening Endoscopic (ICD-10-PCS; principal; 2022-07-17)
PROC: 0DJD8ZZ Inspection of Lower Intestinal Tract, Via Natural or Artificial Opening Endoscopic (ICD-10-PCS; 2022-07-17)
DX: J18.9 Pneumonia, unspecified organism (principal); C78.7 Secondary malignant neoplasm of liver and intrahepatic bile duct; I82.409 Acute embolism and thrombosis of unspecified deep veins of unspecified lower extremity; C7A.1 Malignant poorly differentiated neuroendocrine tumors; E87.1 Hypo-osmolality and hyponatremia; K26.9 Duodenal ulcer, unspecified as acute or chronic, without hemorrhage or perforation; R91.8 Other nonspecific abnormal finding of lung field; R74.8 Abnormal levels of other serum enzymes; D72.829 Elevated white blood cell count, unspecified; E87.6 Hypokalemia; R31.9 Hematuria, unspecified; R11.0 Nausea; E86.0 Dehydration; E87.20 Acidosis, unspecified; R06.2 Wheezing; R31.0 Gross hematuria; Z80.0 Family history of malignant neoplasm of digestive organs; Z79.899 Other long term (current) drug therapy; Z20.828 Contact with and (suspected) exposure to other viral communicable diseases
CPT/HCPCS: 00813; 0241U; 36415; 36600; 43235; 45378; 47000; 70470; 71045; 71260; 74018; 74177; 80053; 80074; 80202; 81001; 82140; 82375; 82803; 82947; 83605; 83735; 83880; 83970; 84132; 84145; 84484; 85025; 85027; 85610; 85730; 87086; 87493; 87811; 93005; 93306; 94640; 94667; 94668; 94760; 94762; 97110; 97161; 99100; 99214; G0378; J1940; J1956; J2060; J2250; J2405; J2704; J2920; J3480; A9270-GY; J3370

== ENCOUNTER 2022-07-25 13:32 | Emergency (ER) | payer MEDICARE, OTHER ==
--- NOTE | 2022-07-25 13:37 | ERPHSYRPT ---
- History of Present Illness Time Seen by Provider: 07/25/22 13:37 Source: patient, family Exam Limitations: no limitations Physician History: This is a 77-year-old white female patient of Dr. Mark Montelongo who presents to the emergency department with shortness of breath and worsening bilateral lower extremity swelling. Additional history was obtained from the patient's daughter as well as from old inpatient hospital notes and review of old hospital radiographic reports and liver biopsy results. This patient was recently seen in the hospital. She had been seen on 07/08/2022 and again 07/16/2022. Her work- up at that time revealed that she had pulmonary emphysema, hepatomegaly and left liver lobe metastasis. Ultimately, the patient underwent a liver biopsy of these left lobe liver lesions. 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 The patient was discharged to home to a local long-term care facility, [facility]. Patient signed out AGAINST MEDICAL ADVICE today secondary to with the patient states she was not receiving the care she needed. Patient has a history of hyperlipidemia, COPD, depression and peripheral vascular disease. She has been seen by oncologist Dr. Andres and has a PET scan scheduled as an outpatient. Timing/Duration: worse Severity of Dyspnea-Max: moderate Severity of Dyspnea-Current: mild (To moderate) Possible Cause: occasional episodes Associated Symptoms: chest pain/discomfort, ankle swelling (Bilateral), leg swelling (Bilateral) Allergies/Adverse Reactions: nickel Allergy (Verified 07/25/22 13:44) Penicillins Allergy (Verified 07/25/22 13:44) sulfamethoxazole [From Bactrim] Allergy (Verified 07/25/22 13:44) trimethoprim [From Bactrim] Allergy (Verified 07/25/22 13:44) Home Medications: Albuterol/Ipratropium 3ml Neb* [DUONEB 0.5-3 MG/3 ml Neb] 1 vial IH BID [History] Aspirin 81 gm Chew [Baby Aspirin 81 mg Chew] 1 tab PO DAILY 09/23/20 [History] Atorvastatin Calcium [Lipitor 40Mg] 1 tab PO HS 09/23/20 [History] Escitalopram Oxalate [Lexapro] 1 tab PO DAILY 09/23/20 [History] Fluticasone/Umeclidin/Vilanter [Trelegy Ellipta 100-62.5-25] 1 puff IH DAILY 09/23/20 [History] Montelukast Sodium 10 mg [Singulair 10 MG] 1 tab PO DAILY 09/23/20 [History] Multivitamin 1 tab PO DAILY 09/23/20 [History] Calcium Carbonate/Vitamin D3 [Calcium 500-Vit D3 600 Tablet] 1 each PO DAILY 07/08/22 [History] Rowe-3 Fatty Acids/Fish Oil [Fish Oil 1,000 mg Capsule] 1 tablet PO UD 07/08/22 [History] Hx Tetanus, Diphtheria Vaccination/Date Given: No Hx Influenza Vaccination/Date Given: Yes Hx Pneumococcal Vaccination/Date Given: No Travel Risk - International Travel Have you traveled outside of the country in past 3 weeks: No - Coronavirus Screening Are you exhibiting any of the following symptoms?: Yes Symptoms: Shortness of Breath - Vaccine Status Have you recieved a Covid-19 vaccination: Yes 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: [employer] - Vaccination Dates Date of 2cond Vaccination (if applicable): jul - Review of Systems Constitutional: Weakness Eyes: No Symptoms Ears, Nose, & Throat: No Symptoms Respiratory: Dyspnea on Exertion (MADRID) Cardiac: Chest Pain Abdominal/Gastrointestinal: No Symptoms Genitourinary Symptoms: No Symptoms Musculoskeletal: Other (Bilateral lower extremity leg swelling) Neurological: No Symptoms Psychological: No Symptoms Endocrine: No Symptoms Hematologic/Lymphatic: No Symptoms Immunological/Allergic: No Symptoms All Other Systems: Reviewed and Negative - Past Medical History Pertinent Past Medical History: Yes Neurological History: TIA ENT History: No Pertinent History Cardiac History: Arrhythmia, Deep Vein Thrombosis, High Cholesterol Respiratory History: COPD Endocrine Medical History: No Pertinent History Musculoskeletal History: Rheumatoid Arthritis GI Medical History: No Pertinent History History: No Pertinent History Psycho-Social History: Depression Female Reproductive Disorders: No Pertinent History 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 bladder lift. breast biopsy - Social History Smoking Status: Never smoker Exposure to second hand smoke: No Drug Use: none Patient Lives Alone: Yes - Nursing Vital Signs Nursing Vital Signs: Initial Vital Signs Temperature 97.6 F 07/25/22 13:45 Pulse Rate 91 H 07/25/22 13:45 Respiratory Rate 20 07/25/22 13:45 Blood Pressure 136/76 07/25/22 13:45 O2 Sat by Pulse Oximetry 97 07/25/22 13:45 Pain Scale Pain Intensity 0 - Physical Exam General Appearance: no apparent distress, alert, anxiety, cachetic Eye Exam: PERRL/EOMI, eyes nml inspection Ears, Nose, Throat Exam: hearing grossly normal, normal ENT inspection, normal pharynx Neck Exam: normal inspection, non-tender, supple, full range of motion Respiratory Exam: normal breath sounds, chest tenderness (Mild substernal central without radiation), lungs clear, airway intact, No respiratory distress Cardiovascular/Chest Exam: normal heart sounds, regular rate/rhythm Abdominal/Gastrointestinal Exam: soft, normal bowel sounds, No tenderness Rectal Exam: not done Extremity Exam: pedal edema (Lateral lower extremity), swelling (Bilateral lower extremity) Neurologic Exam: alert, oriented x 3, cooperative, inspector scales II-XII nml as tested, normal mood/affect, sensation nml Skin Exam: normal color, warm, dry Lymphatic Exam: No adenopathy SpO2 Interpretation: normal O2 Delivery: Room Air Ordered Tests: Active Orders 24 hr Category Date Time Status Coater Hand STAT Care 07/25/22 14:26 Active EKG-ER Only STAT Care 07/25/22 14:25 Active IV Insertion STAT Care 07/25/22 14:25 Active Pulse Oximetry (ED) STAT Care 07/25/22 14:25 Active cath [Cath for Specimen-Straight] STAT Care 07/25/22 17:40 Active CHEST WITH CONTRAST [CT] Stat Exams 07/25/22 15:39 Completed VENOUS BILATERAL EXTREMITY [US] Stat Exams 07/25/22 14:27 Completed CBC W DIFF Stat Lab 07/25/22 14:20 Completed CMP Stat Lab 07/25/22 14:20 Completed CULTURE,URINE Stat Lab 07/25/22 17:51 Received D-DIMER QUANTITATIVE Stat Lab 07/25/22 14:20 Completed NT PRO BNP Stat Lab 07/25/22 14:20 Completed PROTIME WITH INR Stat Lab 07/25/22 14:20 Completed TROPONIN Q4H Lab 07/25/22 14:20 Received TROPONIN Q4H Lab 07/25/22 14:30 Completed TROPONIN Q4H Lab 07/25/22 22:30 Ordered UA W/RFX UR CULTURE Stat Lab 07/25/22 17:51 Completed Medication Summary Generic Name Dose Route Start Last Admin Trade Name Chery PRN Reason Stop Dose Admin Sodium Chloride 500 mls @ 30 mls/hr 07/25/22 15:45 07/25/22 16:33 Sodium Chloride 0.9% 500 Ml IV 08/24/22 15:44 30 mls/hr .[id number] JUDE Administration Discontinued Medications Generic Name Dose Route Start Last Admin Trade Name Freq PRN Reason Stop Dose Admin Lorazepam 1 mg 07/25/22 16:36 07/25/22 17:04 Lorazepam 2 Mg/1 Ml 2 Mg Vial IV 07/25/22 16:37 1 mg STAT ONE Administration Lorazepam Confirm 07/25/22 17:03 Lorazepam 2 Mg/1 Ml 2 Mg Vial Administered 07/25/22 17:04 Dose 2 mg .ROUTE .Taglocity-MED ONE Lab/Rad Data: Laboratory Result Diagrams 07/25/22 14:20 07/25/22 14:20 Laboratory Results 07/25/22 07/25/22 07/25/22 Range/Units 17:51 14:30 14:30 WBC (4.0-10.5) x10^3/uL RBC (4.1-5.4) x10^6/uL Hgb (12.0-16.0) g/dL Hct (35-47) % MCV (78-100) fL MCH (26-32) pg MCHC (32-36) g/dL RDW (11.5-14.0) % Plt Count (150-450) x10^3/uL MPV (7.5-11.0) fL Gran % (36.0-66.0) % Immature Gran % (Auto) (0.00-0.4) % Nucleat RBC Rel Count (0.00-0.1) % Eos # (Auto) (0-0.5) x10^3/uL Immature Gran # (Auto) (0.00-0.03) x10^3u/L Absolute Lymphs (auto) (1.0-4.6) x10^3/uL Absolute Monos (auto) (0.0-1.3) x10^3/uL Absolute Nucleated RBC (0.00-0.01) x10^3u/L Lymphocytes % (24.0-44.0) % Monocytes % (0.0-12.0) % Eosinophils % (0.00-5.0) % Basophils % (0.0-0.4) % Absolute Granulocytes (1.4-6.9) x10^3/uL Basophils # (0-0.4) x10^3/uL PT (9.4-12.5) SECONDS INR (0.8-3.0) D-Dimer (0.0-0.50) mg/L Sodium (137-145) mmol/L Potassium (3.5-5.1) mmol/L Chloride (98-107) mmol/L Carbon Dioxide (22-30) mmol/L Anion Gap (5-15) MEQ/L BUN (7-17) mg/dL Creatinine (0.52-1.04) mg/dL Estimated GFR ML/MIN Glucose (74-106) mg/dL Calcium (8.4-10.2) mg/dL Total Bilirubin (0.2-1.3) mg/dL AST (14-36) U/L ALT (0-35) U/L Alkaline Phosphatase (38-126) U/L Troponin I 0.050 H* (0.000-0.034) ng/mL NT-Pro-B Natriuret Pep (0-1800) pg/mL Serum Total Protein (6.3-8.2) g/dL Albumin (3.5-5.0) g/dL Urine Color Dark Yellow A (Yellow) Urine Appearance Clear (Clear) Urine pH 7.0 (4.6-8.0) Ur Specific Preston >=1.030 A (1.005-1.030) Urine Protein Trace A (Negative) Urine Glucose (UA) Negative (Negative) mg/dL Urine Ketones Negative (Negative) Urine Blood Negative (Negative) Urine Nitrite Negative (Negative) Urine Bilirubin Moderate A (Negative) Urine Urobilinogen 0.2 (0.2) mg/dL Ur Leukocyte Esterase Negative (Negative) U Hyaline Cast (Auto) NONE SEEN (0-2) /LPF Urine Microscopic RBC 0-2 (0-5) /HPF Urine Microscopic WBC 0-2 (0-5) /HPF Ur Epithelial Cells None Seen (None Seen) /HPF Urine Bacteria None Seen (None Seen) /HPF Urine Culture Reflexed ORDERED SEPARATELY (NO) Influenza Type A Ag NEGATIVE (NEGATIVE) Influenza Type B Ag NEGATIVE (NEGATIVE) RSV (PCR) NEGATIVE (Negative) SARS-CoV-2 (PCR) POSITIVE A (NEGATIVE) Slides for Path Review 07/25/22 07/25/22 07/25/22 Range/Units 14:20 14:20 14:20 WBC 19.7 H (4.0-10.5) x10^3/uL RBC 3.82 L (4.1-5.4) x10^6/uL Hgb 11.8 L (12.0-16.0) g/dL Hct 34.0 L (35-47) % MCV 89.0 (78-100) fL MCH 30.9 (26-32) pg MCHC 34.7 (32-36) g/dL RDW 18.6 H (11.5-14.0) % Plt Count 315 (150-450) x10^3/uL MPV 11.4 H (7.5-11.0) fL Gran % 93.4 H (36.0-66.0) % Immature Gran % (Auto) 1.4 H (0.00-0.4) % Nucleat RBC Rel Count 0.0 (0.00-0.1) % Eos # (Auto) 0.01 (0-0.5) x10^3/uL Immature Gran # (Auto) 0.27 H (0.00-0.03) x10^3u/L Absolute Lymphs (auto) 0.49 L (1.0-4.6) x10^3/uL Absolute Monos (auto) 0.47 (0.0-1.3) x10^3/uL Absolute Nucleated RBC 0.00 (0.00-0.01) x10^3u/L Lymphocytes % 2.5 L (24.0-44.0) % Monocytes % 2.4 (0.0-12.0) % Eosinophils % 0.1 (0.00-5.0) % Basophils % 0.2 (0.0-0.4) % Absolute Granulocytes 18.44 H (1.4-6.9) x10^3/uL Basophils # 0.03 (0-0.4) x10^3/uL PT 13.0 H (9.4-12.5) SECONDS INR 1.25 (0.8-3.0) D-Dimer 3.88 H* (0.0-0.50) mg/L Sodium 134 L (137-145) mmol/L Potassium 3.3 L (3.5-5.1) mmol/L Chloride 97 L (98-107) mmol/L Carbon Dioxide 32 H (22-30) mmol/L Anion Gap 8.4 (5-15) MEQ/L BUN 28 H (7-17) mg/dL Creatinine 0.56 (0.52-1.04) mg/dL Estimated GFR > 60.0 ML/MIN Glucose 112 H (74-106) mg/dL Calcium 8.0 L (8.4-10.2) mg/dL Total Bilirubin 12.10 H (0.2-1.3) mg/dL AST 691 H (14-36) U/L ALT 241 H (0-35) U/L Alkaline Phosphatase 1259 H (38-126) U/L Troponin I (0.000-0.034) ng/mL NT-Pro-B Natriuret Pep 3990 H (0-1800) pg/mL Serum Total Protein 6.2 L (6.3-8.2) g/dL Albumin 2.9 L (3.5-5.0) g/dL Urine Color (Yellow) Urine Appearance (Clear) Urine pH (4.6-8.0) Ur Specific Preston (1.005-1.030) Urine Protein (Negative) Urine Glucose (UA) (Negative) mg/dL Urine Ketones (Negative) Urine Blood (Negative) Urine Nitrite (Negative) Urine Bilirubin (Negative) Urine Urobilinogen (0.2) mg/dL Ur Leukocyte Esterase (Negative) U Hyaline Cast (Auto) (0-2) /LPF Urine Microscopic RBC (0-5) /HPF Urine Microscopic WBC (0-5) /HPF Ur Epithelial Cells (None Seen) /HPF Urine Bacteria (None Seen) /HPF Urine Culture Reflexed (NO) Influenza Type A Ag (NEGATIVE) Influenza Type B Ag (NEGATIVE) RSV (PCR) (Negative) SARS-CoV-2 (PCR) (NEGATIVE) Slides for Path Review YES - Progress Progress: improved, re-examined Air Movement: good Progress Note: 07/25/22 18:23 CTA of the chest shows infrahilar mass present. No infiltrate and no pulmonary embolus. Medical decision making: This patient has medical issues that are of moderate to high complexity. Based on the patient's complaint, medical history I obtained from the patient and the patient's daughter, and reviewing inpatient labs from prior hospital admission and and the most recent hospital discharge plan. Based on the above, I ordered labs chest x-ray and urinalysis. I reviewed the results of the initial lab work-up. Based on these results I ordered a CTA of the chest and reviewed the radiographic results of this study. I received a phone call from the patient's primary care provider, Dr. Mark Montelongo, and reviewed the work-up results with her and formulated a discharge plan. I discussed this plan with the patient the patient's daughter. I then contacted Dr. Andres, the patient's oncologist. Patient had not actually seen this physician but has an appointment to see him on 07/29/2022. I had mentioned that the patient's COVID test was positive. Dr. Martínez then did not want to transfer the patient to [facility] as Dr. Mark Montelongo had wanted. I then called Dr. aMrk Montelongo back and she informed me, which I did not realize, that the patient's Binax COVID test was negative. Therefore, the patient is not contagious and has not been IN isolation for last several days. I then contacted [facility] and spoke with Dr. Duff the emergency doctor. After reviewing the same information with the emergency room doctor at [facility], together, we decided to contact oncology again. We had a three-way conversation on the phone between is all and I repeated the history with the oncology nurse practitioner. Patient was now excepted for transfer to the emergency department where the hospitalist will admit the patient and oncology would consult. I then called the patient's son Robert Tomlin" at [phone] and updated him on today's findings and work-up. Blood Culture(s) Obtained: No Antibiotics given: Yes Discussed with : Juliana, Other Counseled pt/family regarding: lab results, diagnosis, need for follow-up, rad results - Departure Departure Disposition: Transfer Clinical Impression: Leukocytosis, Lung mass, Liver metastasis, Elevated liver enzymes, Swelling of both lower extremities, Elevated troponin Condition: Fair Critical Care Time: No Referrals: IVAN MALONE [Primary Care Provider] - Follow up/PCP as directed
[2022-07-25 14:32] LABS: Absolute Neutrophil Ct (ANC) 18.44 x10^3/uL (1.4-6.9); BASOPHIL % 0.2 % (0.0-0.4); Basophil (Absolute #) 0.03 x10^3/uL (0-0.4); Eosinophil % 0.1 % (0.00-5.0); Eosinophil (Absolute #) 0.01 x10^3/uL (0-0.5); Hemoglobin 11.8 g/dL (12.0-16.0); IMMATURE GRAN # 0.27 x10^3u/L (0.00-0.03); IMMATURE GRAN % 1.4 % (0.00-0.4); Lymphocyte (Absolute #) 0.49 x10^3/uL (1.0-4.6); Lymphocytes % 2.5 % (24.0-44.0); Mean Corpuscular Hemoglobin 30.9 pg (26-32); Mean Corpuscular Hgb Concent. 34.7 g/dL (32-36); Mean Platelet Volume 11.4 fL (7.5-11.0); Monocyte (Absolute #) 0.47 x10^3/uL (0.0-1.3); Monocytes % 2.4 % (0.0-12.0); Neutrophil % 93.4 % (36.0-66.0); Platelet Count 315 x10^3/uL (150-450); Red Blood Count 3.82 x10^6/uL (4.1-5.4); Red Cell Distribution Width 18.6 % (11.5-14.0); White Blood Count 19.7 x10^3/uL (4.0-10.5)
[2022-07-25 14:54] LABS: INR 1.25 (0.8-3.0)
[2022-07-25 14:58] LABS: ALBUMIN 2.9 g/dL (3.5-5.0); ALKALINE PHOSPHATASE 1259 U/L (38-126); ANION GAP 8.4 MEQ/L (5-15); BLOOD UREA NITROGEN 28 mg/dL (7-17); CHLORIDE 97 mmol/L (98-107); Carbon Dioxide 32 mmol/L (22-30); Creatinine 1 0.56 mg/dL (0.52-1.04); D-DIMER QUANTITATIVE 3.88 mg/L (0.0-0.50); EST GLOMERULAR FILTRATION RATE > 60.0 ML/MIN; Glucose 112 mg/dL (74-106); NT PRO BNP 3990 pg/mL (0-1800); Potassium 3.3 mmol/L (3.5-5.1); SGOT/AST 691 U/L (14-36); SGPT/ALT 241 U/L (0-35); SODIUM 134 mmol/L (137-145); Total Protein 6.2 g/dL (6.3-8.2)
--- NOTE | 2022-07-25 15:11 | XRAY ---
Indication: Bilateral leg swelling. Short of breath. Two-dimensional sonogram and color Doppler imaging of the major venous vessels of the left and right leg performed. Comparison: None No thrombus seen in the examined deep venous vessels of the left and right leg including greater saphenous vein. Veins demonstrate normal compressibility. Venous waveforms are normal with and without augmentation. Impression: Left and right legs negative for DVT.
[2022-07-25 15:20] LABS: INFLUENZA A NEGATIVE (NEGATIVE); INFLUENZA B NEGATIVE (NEGATIVE); RESPIRATORY SYNCTIAL VIRUS NEGATIVE (Negative)
[2022-07-25 15:21] LABS: SARS-CoV-2 Xpert Express POSITIVE (NEGATIVE)
[2022-07-25 15:40] LABS: Slide Review 1 YES
[2022-07-25] MEDS ORDERED: Sodium Chloride 0.9% 500 ML 500 ML IV SCH (15:45)
[2022-07-25] MEDS ORDERED: Sodium Chloride 0.9% 500 ML 500 ML IV ONE (16:31)
--- NOTE | 2022-07-25 16:33 | XRAY ---
Indication: Elevated d-dimer. Positive Covid 19. Multiple contiguous axial images obtained through the chest using 80 cc Isovue 370 contrast and PE protocol. Comparison: July 15, 2022 Good opacification of the pulmonary arteries to include the lobar and segmental branches. No pulmonary embolus. Heart not enlarged. Aorta again mildly arteriosclerotic without aneurysm/dissection. Stable tiny mediastinal calcified nodes. Grossly stable left infrahilar/medial left lower lobe soft tissue mass again effacing the left lower lobe bronchus. Remaining lungs again demonstrates extensive centrilobular pulmonary emphysema with scattered fibrosis/scarring. No effusion. Bony thorax intact again with osteopenia. Limited upper abdomen again demonstrates hepatic metastasis. Impression: 1. Negative pulmonary embolus. 2. Stable left infrahilar/medial left lower lobe soft tissue mass as detailed again worrisome for malignancy. 3. Stable hepatic metastasis. 4. Again chronic findings including pulmonary emphysema, pulmonary fibrosis/scarring, osteopenia, and arteriosclerotic disease.
[2022-07-25] MEDS ORDERED: Ativan 2 MG/1 ML VIAL IV ONE (16:36)
[2022-07-25] MEDS ORDERED: Ativan 2 MG/1 ML VIAL ONE (17:03)
[2022-07-25 18:15] LABS: ADD URINE CULTURE? ORDERED SEPARATELY (NO); Appearance Clear (Clear); Bacteria None Seen /HPF (None Seen); Bilirubin Moderate (Negative); Blood Negative (Negative); Epithelial Cells None Seen /HPF (None Seen); Glucose, Urine Negative (Negative); Hyaline Casts NONE SEEN /LPF (0-2); Ketones Negative (Negative); Leukocyte Esterase Negative (Negative); Nitrite Negative (Negative); Protein,Urine Dip Trace (Negative); RBC 0-2 /HPF (0-5); Specific Gravity >=1.030 (1.005-1.030); Urobilinogen 0.2 mg/dL (0.2); WBC 0-2 /HPF (0-5)
[2022-07-25] MEDS ORDERED: Levofloxacin 500MG/100ML D5W 500 MG/100 ML BAG IV STA (18:22)
[2022-07-25] MEDS ORDERED: Levofloxacin 500MG/100ML D5W 500 MG/100 ML BAG IV ONE (18:25)
[2022-07-25 20:08] VITALS: BP 111/58; PULSE 76; O2SAT 97
== END 2022-07-25 20:21 | disposition short-term general hospital (02) ==
LOC: ED 13:32
DX: R91.8 Other nonspecific abnormal finding of lung field (principal); C78.7 Secondary malignant neoplasm of liver and intrahepatic bile duct; D72.829 Elevated white blood cell count, unspecified; R60.0 Localized edema; R77.8 Other specified abnormalities of plasma proteins; R79.89 Other specified abnormal findings of blood chemistry; R06.02 Shortness of breath; E78.5 Hyperlipidemia, unspecified; Z79.899 Other long term (current) drug therapy; Z20.828 Contact with and (suspected) exposure to other viral communicable diseases
CPT/HCPCS: 0241U; 36000; 36415; 71260; 80053; 81001; 83880; 84484; 85025; 85379; 85610; 87086; 93005; 93041; 93970; 94760; 96360; 96365; 96374; 99285; P9612; J1956; J2060